=== PATIENT | female | born 1980 | race Caucasian/White ===

== ENCOUNTER → 2016-12-19 | Outpatient (CLI) | payer OTHER ==
[2016-12-19 14:01] LABS: BASO % 0.7 %; BASO ABS # 0.05 K/uL (0-0.2); COMPLETE YES; IG% 0.1 %; LYMPH % 26.9 %; LYMPH ABS # 1.81 K/uL (1.2-3.4); MEAN CELL VOLUME 83.1 fL (80-100); MEAN CORPUSCULAR HEMOGLOBIN 25.9 pg (25-34); MEAN CORPUSCULAR HGB CONC 31.2 g/dl (32-36); MEAN PLATELET VOLUME 11.8 fL (7.4-10.4); MONO % 8.8 %; NEUT % 57.5 %; PLATELET COUNT 288 K/uL (130-400); RED BLOOD COUNT 3.97 M/uL (4.2-5.4); WHITE BLOOD COUNT 6.72 K/uL (4.8-10.8)
[2016-12-19 19:30] LABS: ALT/SGPT 67 U/L (12-78); AMYLASE 69 U/L (25-115); AST/SGOT 67 U/L (15-37); BLOOD UREA NITROGEN 11 mg/dl (7-18); BUN/CREATININE RATIO 15.7 (10-20); CARBON DIOXIDE 28 mmol/L (21-32); CHLORIDE 109 mmol/L (98-107); CREATININE 0.68 mg/dl (0.60-1.20); GLUCOSE 71 mg/dl (70-99); POTASSIUM 4.4 mmol/L (3.5-5.1); SODIUM 141 mmol/L (136-145)
[2016-12-19 19:33] LABS: ALB/GLOB RATIO 1.1 (0.9-2); ALKALINE PHOSPHATASE 275 U/L (45-117)
== END | disposition home or self-care (01) ==
LOC: C.LABSPEC 13:13
PROVIDERS: ATTEND Family Medicine
DX: R10.84 Generalized abdominal pain (principal); R30.0 Dysuria

== ENCOUNTER 2024-02-04 18:00 | Inpatient (IN) ==
[2024-02-04 18:48] LABS: Hematocrit (blood only) 37.9 % (37.0-47.0); Hemoglobin 12.6 g/dl (12.0-16.0); Mean Corpuscular Hemoglobin 34.7 pg (25.0-34.0); Mean Corpuscular Hgb Conc 33.2 g/dL (32.0-36.0); Mean Corpuscular Volume 104.4 fL (80.0-100.0); Mean Platelet Volume 11.1 fL (9.4-12.4); Platelet Count 158 K/uL (130-400); RDW Coefficient of Variation 17.6 % (11.5-14.5); RDW Standard Deviation 68.3 fL (36.4-46.3); Red Blood Count 3.63 M/uL (4.20-5.40); White Blood Count 6.87 K/ul (4.8-10.8)
[2024-02-04 19:04] LABS: Albumin Globulin Ratio 0.8 (0.9-2); Albumin Level 3.3 gm/dl (3.4-5.0); BUN Creatinine Ratio 9.9 (10-20); Bilirubin,Total 6.9 mg/dl (0.2-1.0); Calcium 9.3 mg/dl (8.6-10.3); Creatinine Clr Calc Pharmacy 73.6 ml/min; Est GFR (African American) 103.8 ml/min; Est GFR (Non-African American) 89.6 ml/min; Globulin 4.1 gm/dl (2.5-4.0); Potassium 3.7 mmol/L (3.5-5.1); Total Protein 7.4 gm/dl (6.0-8.3)
[2024-02-04 19:05] LABS: Basophils # (auto) 0.06 K/uL (0.00-0.20); Basophils % (auto) 0.9 %; Eosinophils # (auto) 0.04 K/uL (0.00-0.50); Eosinophils % (auto) 0.6 %; Immature Granulocytes # (auto) 0.02 K/uL (0.01-0.20); Immature Granulocytes % (auto) 0.3 %; Lymphocytes # (auto) 3.55 K/uL (1.20-3.40); Lymphocytes % (auto) 51.7 %; Monocytes % (auto) 7.3 %; Neutrophils % (auto) 39.2 %; Stomatocytes 2+
[2024-02-04 20:06] LABS: Appearance Urine Cloudy (Clear); Bacteria Urine Automated 4+ (None Seen); Bilirubin Urine 3+ (Negative); Blood Urine Negative (Negative); Cast Urine Automated 0-2 /lpf (0-2); Color Urine Dark Yellow; Glucose Urine UA Negative (Negative); Ketones Urine Trace (Negative); Leukocyte Esterase Urine 1+ (Negative); Nitrite Urine Positive (Negative); Protein Urine 1+ (Negative); RBC Urine Automated 0-2 /hpf (0-2); Specific Gravity Urine 1.019 (1.000-1.030); Urobilinogen Urine Positive (Negative)
--- NOTE | 2024-02-04 20:16 | Emergency Department Note ---
Impression & Plan Diffuse abdominal pain, Elevated liver enzymes, UTI (urinary tract infection), History of gastric bypass ED Provider Note NAME: TERRELL MOREAU AGE: 43 SEX: F : 1980 ARRIVES VIA: Walk-In INFORMANT: [Patient] ED PROVIDER(S): [Bobby Red MD] CHIEF COMPLAINT: Abdominal pain HISTORY OF PRESENT ILLNESS: The patient is a 43-year-old female with a history of previous liver issues. She has been diagnosed with primary biliary cholangitis. The patient has had a gastric sleeve as well as a gastric bypass. She has had hernia surgery with mesh. In the last month, she has noticed increasing abdominal distention as well as abdominal pain. She has turned yellow. She has been nauseated and her urine has been dark. Patient was recently at the [facility] for a few days. She was discharged. Today, she saw her doctors office and they were worried about how she appeared and she was sent to our hospital for evaluation. Patient has not had fever, she has not had urinary complaints. There has been no shortness of breath, cough or congestion. PMHx/PSHx/Social Hx: See Below PHYSICAL EXAM: GENERAL: Patient is in no acute distress. HEENT: No acute trauma, normocephalic atraumatic, mucous membranes moist, no nasal congestion. NECK: No stridor, no adenopathy, no meningismus, trachea is midline. LUNGS: Wheezing bilaterally, no respiratory distress, no crackles. HEART: 2/6 systolic murmur, mildly tachycardic, regular rhythm. ABDOMEN: Soft, firm abdomen, mild distention, diffusely tender. EXTREMITIES: No cyanosis, full range of motion of all the joints without pain or difficulty. NEUROLOGIC: Oriented x 3, no acute motor or sensory deficits, no focal weakness. SKIN: Moderate jaundice, no diaphoresis. DIFFERENTIAL DIAGNOSIS: Biliary colic, biliary obstruction, pancreatitis, intra-abdominal bleeding, gastritis, ulcer, anemia, dehydration, among others. EMERGENCY DEPARTMENT PROCEDURES: MEDICAL DECISION MAKING: There is no leukocytosis or concerning anemia. There is a normal platelet count. No coagulopathy. Sodium slightly low but not in need of emergent correction. No renal failure. There were elevated liver enzymes although, looking at her numbers from her recent [place] hospitalization, her liver values appear slightly improved. There is no pancreatitis. Urinalysis did suggest infection, urine culture is pending. Abdominal and pelvis CT showed enlargement to her liver. There is no bowel obstruction, no evidence for intra-abdominal hematoma. On exam, the patient was jaundiced. She was tender about the abdomen. She was not febrile or toxic. Patient received IV saline for hydration, she was given IV Phenergan for nausea, IV Dilaudid for pain, she received IV ceftriaxone for the UTI. The patient presents with worsening abdominal pain since being discharged recently from [facility]. She may be feeling worse because of the UTI. Given her chronic issues, given her liver disease and the jaundice, given the UTI, I do think hospitalization for further care/workup would be warranted. At this point, I do not see any reason for an emergent transfer to a tertiary care center. She does seem appropriate for hospitalization at our facility. Prior/Outside records/notes reviewed: Today's family practice note describing her presentation and the need for referral to our ER. Imaging/x-ray results per my interpretation: Chronic Medical/Social conditions affecting care: History of primary biliary sclerosis and previous drug and alcohol abuse. Care/Management discussed with: Case management, the on-call hospitalist. Level of care consideration(s): After review of the information above and other included data: --I believe the patient requires escalation of care to admission DISPOSITION: . Admission Past Med/Surg History Problem List (Updated 02/04/24 @ 23:43 by Bobby Red MD) History of gastric bypass (Acute) UTI (urinary tract infection) (Acute) Elevated liver enzymes (Acute) Diffuse abdominal pain (Acute) Abdominal pain Thrush Major's edema of vocal folds Rhinitis Tobacco use disorder 5 small cigar cigarettes/day Dysphagia Dysphonia Psychological disorder Bipolar I Acid reflux Autoimmune disorder Asthma Medical History H/O Clostridium difficile infection Nephrolithiasis Borderline personality disorder Stomach ulcer Surgical History History of cholecystectomy 2010 History of sleeve gastrectomy 2014 History of Jeet-en-Y gastric bypass 2016 History of esophagogastroduodenoscopy (EGD) Family History (Updated 12/07/21 @ 16:12 by Janny Cortes PA-C) Mother Cancer Asthma Adverse reaction to anesthetic agent Father Cancer Uncle Cancer Aunt Cancer Sister Asthma Adverse reaction to anesthetic agent Grandmother Cancer Other No family history of bleeding disorder Social History Smoking Status: Current every day smoker Tobacco Type: Cigars Cigarettes Per Day: 5-7; Hx Alcohol Use: Yes Alcohol Intake Frequency Comment: Daily Hx Substance Use: No Preferred Language: Polish Feels Safe at Home: Yes Allergies Allergies Allergy/AdvReac Type Severity Reaction Status Date / Time dichloralphenazone Allergy Severe AIRWAY Verified 02/04/24 20:32 [From Midrin] EDEMA isometheptene [From Midrin] Allergy Severe AIRWAY Verified 02/04/24 20:32 EDEMA Penicillins Allergy Severe AIRWAY Verified 02/04/24 20:32 EDEMA sertraline Allergy Severe AIRWAY Verified 02/04/24 20:32 EDEMA sodium hypochlorite solution Allergy Severe Anaphylaxis Verified 02/04/24 20:32 carbamazepine [From Tegretol] Allergy Mild SWELLING Verified 02/04/24 20:32 ON THE BACK OF HEAD nicotine Allergy Mild Rash Verified 02/04/24 20:32 lurasidone [From Latuda] AdvReac Severe CAUSED JAW Verified 02/04/24 20:32 TO LOCK aspirin AdvReac Intermediate NAUSEA/VOMI Verified 02/04/24 20:32 TING eszopiclone [From Lunesta] AdvReac Intermediate NIGHT Verified 02/04/24 20:32 TERRORS hydrocodone AdvReac Intermediate ABD Verified 02/04/24 20:32 CRAMPS/PAIN, NAUSEA/VOMITING oxycodone AdvReac Intermediate Vomiting Verified 02/04/24 20:32 propoxyphene AdvReac Intermediate Gastrointestinal Verified 02/04/24 20:32 [From Darvocet-N] Upset rofecoxib AdvReac Intermediate GI BLEEDING Verified 02/04/24 20:32 salicylates AdvReac Intermediate IBS/GI Verified 02/04/24 20:32 IRRITATION WITH ASA & VIOXX tetracycline AdvReac Intermediate NAUSEA/VOMI Verified 02/04/24 20:32 TING amoxicillin [From Augmentin] AdvReac Mild Headache Verified 02/04/24 20:32 clavulanic acid AdvReac Mild Headache Verified 02/04/24 20:32 [From Augmentin] HOT PEPPERS Allergy Severe AIRWAY Uncoded 02/04/24 20:32 EDEMA Home Meds Home Medications Medication Instructions Recorded Confirmed albuterol sulfate 90 mcg/actuation 2 puff inhalation Q4H PRN 02/04/24 02/04/24 aerosol inhaler Shortness Of Breath Or Wheezing bupropion HCl 75 mg tablet 75 mg PO DAILY 02/04/24 02/04/24 clonazepam 1 mg tablet 1 mg PO BID PRN PANIC ATTACKS 02/04/24 02/04/24 fluticasone fur. 100 mcg-umeclid 1 inh inhalation DAILY 02/04/24 02/04/24 62.5 mcg-vilant 25 mcg inhalat.powder (Trelegy Ellipta) folic acid 1 mg tablet 1 mg PO DAILY 02/04/24 02/04/24 multivitamin with folic acid 400 1 tab PO QDL 02/04/24 02/04/24 mcg tablet (Daily-Donaldo (with folic acid)) naltrexone 50 mg tablet 50 mg PO QAM 02/04/24 02/04/24 propranolol 10 mg tablet 10 mg PO BID PRN Anxiety 02/04/24 02/04/24 thiamine HCl (vitamin B1) 100 mg 100 mg PO DAILY 02/04/24 02/04/24 tablet (Vitamin B-1) trazodone 100 mg tablet 200 mg PO HS PRN SLEEDP 02/04/24 02/04/24 ursodiol 300 mg capsule See Rx Instructions .Route .COMPLEX 02/04/24 02/04/24 ziprasidone HCl 80 mg capsule 80 mg PO DAILY 02/04/24 02/04/24 Results & Data (ED) Vital Signs Vital Signs - 24 hr 02/04/24 18:10 02/04/24 20:02 02/04/24 20:02 Temperature 36.7 C Temperature Source Temporal Artery Scan Pulse Rate 90 Pulse Rate [Apical] 64 Respiratory Rate 18 18 Blood Pressure 124/87 Blood Pressure [Right Arm] 117/80 Blood Pressure Mean 99 Blood Pressure Mean [Right Arm] 92 Pulse Oximetry 97 99 Oxygen Delivery Method Room Air Room Air Room Air Sepsis Recent Fever Within 48 Hours No Sepsis New/Unexplained Change in Mental Status No Sepsis Action Taken by Nursing No Action Required 02/04/24 20:12 Temperature Temperature Source Pulse Rate 66 Pulse Rate [Apical] Respiratory Rate Blood Pressure Blood Pressure [Right Arm] Blood Pressure Mean Blood Pressure Mean [Right Arm] Pulse Oximetry Oxygen Delivery Method Sepsis Recent Fever Within 48 Hours Sepsis New/Unexplained Change in Mental Status Sepsis Action Taken by Assisted Medications Current Medication List: was personally reviewed by me Laboratory Data Attestation: I reviewed the patient's lab results. 02/04/24 18:31 02/04/24 18:31 Lab Results 02/04/24 02/04/24 Range/Units 18:31 Unknown WBC 6.87 (4.8-10.8) K/ul RBC 3.63 L (4.20-5.40) M/uL Hgb 12.6 (12.0-16.0) g/dl Hct 37.9 (37.0-47.0) % MCV 104.4 H (80.0-100.0) fL MCH 34.7 H (25.0-34.0) pg MCHC 33.2 (32.0-36.0) g/dL RDW Std Deviation 68.3 H (36.4-46.3) fL RDW Coeff of Prasad 17.6 H (11.5-14.5) % Plt Count 158 (130-400) K/uL MPV 11.1 (9.4-12.4) fL Immature Gran % (Auto) 0.3 % Neut % (Auto) 39.2 % Lymph % (Auto) 51.7 % [place] % (Auto) 7.3 % Eos % (Auto) 0.6 % Baso % (Auto) 0.9 % Neut # (Auto) 2.70 (1.40-6.50) K/uL Lymph # (Auto) 3.55 H (1.20-3.40) K/uL [place] # (Auto) 0.50 (0.11-0.59) K/uL Eos # (Auto) 0.04 (0.00-0.50) K/uL Baso # (Auto) 0.06 (0.00-0.20) K/uL Immature Gran # (Auto) 0.02 (0.01-0.20) K/uL Stomatocytes 2+ PT 10.3 (9.0-12.0) Seconds INR 0.9 (0.9-1.1) APTT 26 (21-31) Seconds PTT Ratio 1.0 Sodium 133 L (136-145) mmol/L Potassium 3.7 (3.5-5.1) mmol/L Chloride 102 (98-107) mmol/L Carbon Dioxide 24 (21-32) mmol/L Anion Gap 7 (3-11) BUN 8 (6-23) mg/dl Creatinine 0.81 (0.6-1.2) mg/dl Est Cr Clr Drug Dosing 73.6 ml/min Est GFR ( Amer) 103.8 ml/min Est GFR (Non-Af Amer) 89.6 ml/min BUN/Creatinine Ratio 9.9 L (10-20) Glucose 85 (70-99(Fasting)) mg/dl Calcium 9.3 (8.6-10.3) mg/dl Magnesium 2.1 (1.7-2.4) mg/dl Total Bilirubin 6.9 H (0.2-1.0) mg/dl AST 176 H (13-39) U/L ALT 81 H (7-52) U/L Alkaline Phosphatase 541 H (34-104) U/L Total Protein 7.4 (6.0-8.3) gm/dl Albumin 3.3 L (3.4-5.0) gm/dl Globulin 4.1 H (2.5-4.0) gm/dl Albumin/Globulin Ratio 0.8 L (0.9-2) Lipase 54 (11-82) U/L Urine Color Dark Yellow Urine Appearance Cloudy A (Clear) Urine pH 6.0 (4.5-7.5) Ur Specific [place] 1.019 (1.000-1.030) Urine Protein 1+ H (Negative) Urine Glucose (UA) Negative (Negative) Urine Ketones Trace H (Negative) Urine Blood Negative (Negative) Urine Nitrite Positive A (Negative) Urine Bilirubin 3+ H (Negative) Urine Urobilinogen Positive H (Negative) Ur Leukocyte Esterase 1+ H (Negative) Urine WBC (Auto) 11-20 H (0-5) /hpf Urine RBC (Auto) 0-2 (0-2) /hpf U Hyaline Cast (Auto) 0-2 (0-2) /lpf U Epithel Cells (Auto) 6-10 H (0-2) /hpf Urine Bacteria (Auto) 4+ H (None Seen) Administered Medications Discontinued Medications Hydromorphone HCl (Hydromorphone Inj 0.5 Mg/0.5 Ml Syr) 0.5 mg IV NOW STA Stop: 02/04/24 20:11 Last Admin: 02/04/24 20:34 Dose: 0.5 mg Documented By: GRICELDA Sodium Chloride (Nss) 500 mls @ 999 mls/hr IV .Q31M ONE Stop: 02/04/24 20:40 Last Infusion: 02/04/24 21:03 Dose: Infused Documented By: Admin: 02/04/24 20:29 Dose: 999 mls/hr Documented By: GRICELDA Promethazine HCl (Phenergan) 6.25 mg in 50.25 mls @ 201 mls/hr IV NOW STA Stop: 02/04/24 20:24 Last Infusion: 02/04/24 20:55 Dose: Infused Documented By: Admin: 02/04/24 20:32 Dose: 201 mls/hr Documented By: GRICELDA Ceftriaxone Sodium (Rocephin) 2,000 mg in 50 mls @ 100 mls/hr IV NOW STA Stop: 02/04/24 20:51 Last Infusion: 02/04/24 21:42 Dose: Infused Documented By: Admin: 02/04/24 20:57 Dose: 100 mls/hr Documented By: GRICELDA Ioversol (Optiray 320 100ml) 93 ml IV ONCE ONE Stop: 02/04/24 20:18 Last Admin: 02/04/24 20:19 Dose: 93 ml Documented By: CICI Imaging Data Radiologist's Impression: Abdomen/Pelvis CT 02/04/24 19:46 CT abd pelvis IV con only CLINICAL HISTORY: pain, liver issues, concern for hemorrhage TECHNIQUE: Helical axial images of the abdomen and pelvis were obtained and displayed. Automated dose lowering techniques and/or adjustment according to patient size were utilized for this exam. This exam was performed with intravenous contrast. CT DOSE: 357.06 mGy.cm COMPARISON: None available at the time of this dictation. FINDINGS: Lower chest: No acute abnormality. Liver: Hepatomegaly and hepatic steatosis is seen. Gallbladder and biliary tree: Patient is status post cholecystectomy. No intra- or extrahepatic biliary ductal dilation. Pancreas: Unremarkable, no focal lesions. Spleen: Unremarkable. Adrenals: Unremarkable. Kidneys and ureters: Unremarkable. Bladder: Limited evaluation due to underdistention. Reproductive organs: Unremarkable. Bowel: Postsurgical changes of gastric sleeve are noted. A hiatal hernia is seen. Diverticulosis is seen without diverticulitis. Lymph nodes Retroperitoneal: Unremarkable. Pelvic: Unremarkable. Mesenteric: Unremarkable. Peritoneum: Normal. Vessels: Unremarkable. Abdominal wall: Unremarkable. Bones: Unremarkable. IMPRESSION: 1. Prominent hepatic steatosis and hepatomegaly are seen. Steatohepatitis cannot be excluded. 2. No evidence of intraperitoneal hemorrhage or other acute abnormality. 3. Postsurgical changes of gastric sleeve. ACT 112: Negative or not required by law. Electronically signed by: Kayode Rosa M.D. 02/04/2024 9:07 PM Discharge Plan Visit Data Chief Complaint: Abdominal Pain Stated Complaint: ABDOMINAL PAIN, LIVER DISEASE ED Provider: Bobby Red Discharge Problem: Diffuse abdominal pain, Elevated liver enzymes, UTI (urinary tract infection), History of gastric bypass Patient Disposition: Admitted As Inpatient Condition: Fair Prescriptions Prescriptions: No Action ziprasidone HCl 80 mg capsule 80 mg PO DAILY Rx Instructions: PER PT "NOT TAKING". naltrexone 50 mg tablet 50 mg PO QAM Rx Instructions: ORDERED 01/31/24 FOR 13 DAYS, PER PT "NOT TAKING". clonazepam 1 mg tablet 1 mg PO BID PRN (Reason: PANIC ATTACKS) thiamine HCl (vitamin B1) [Vitamin B-1] 100 mg Tablet 100 mg PO DAILY propranolol 10 mg tablet 10 mg PO BID PRN (Reason: Anxiety) trazodone 100 mg Tablet 200 mg PO HS PRN (Reason: SLEEDP) ursodiol 300 mg capsule See Rx Instructions .ROUTE .COMPLEX Rx Instructions: TAKE 600 MG QAM, THEN 300 MG QPM. PER PT "NOT TAKING". bupropion HCl 75 mg tablet 75 mg PO DAILY Rx Instructions: PER PT "NOT TAKING". folic acid 1 mg Tablet 1 mg PO DAILY albuterol sulfate 90 mcg/actuation HFA aerosol inhaler 2 puff INHALATION Q4H PRN (Reason: Shortness Of Breath Or Wheezing) multivitamin with folic acid [Daily-Donaldo (with folic acid)] 400 mcg tablet 1 tab PO QDL Trelegy Ellipta 100-62.5-25 mcg blister with device 1 inh INHALATION DAILY Discharge Problem: UTI (urinary tract infection) Qualifiers: Urinary tract infection type: acute cystitis Hematuria presence: without hematuria Qualified Code(s): N30.00 - Acute cystitis without hematuria
[2024-02-04] MEDS: OPTIRAY 320 100ml IV ONE (20:19)
[2024-02-04] MEDS: SODIUM CHLORIDE 0.9% 500 ML IV ONE (20:29)
[2024-02-04] MEDS: PROMETHAZINE 6.25 MG/50.25 ML BAG IV STA (20:32)
[2024-02-04] MEDS: HYDROmorphone INJ 0.5 MG/0.5 ML SYR IV STA (20:34)
[2024-02-04 20:35] LABS: Magnesium 2.1 mg/dl (1.7-2.4)
[2024-02-04] MEDS: cefTRIAXone SODIUM 2,000 MG/50 ML BAG IV STA (20:57)
[2024-02-04 21:02] LABS: INR 0.9 (0.9-1.1); Partial Thromboplastin Time 26 Seconds (21-31); Prothrombin Time 10.3 Seconds (9.0-12.0)
--- NOTE | 2024-02-04 21:09 | CT Scan Report ---
CT abd pelvis IV con only CLINICAL HISTORY: pain, liver issues, concern for hemorrhage TECHNIQUE: Helical axial images of the abdomen and pelvis were obtained and displayed. Automated dose lowering techniques and/or adjustment according to patient size were utilized for this exam. This e xam was performed with intravenous contrast. CT DOSE: 357.06 mGy.cm COMPARISON: None available at the time of this dictation. FINDINGS: Lower chest: No acute abnormality. Liver: Hepatomegaly and hepatic steatosis is seen. Gallbladder and biliary tree: Patient is status post cholecystectomy. No intra- or extrahepatic bilia ry ductal dilation. Pancreas: Unremarkable, no focal lesions. Spleen: Unremarkable. Adrenals: Unremarkable. Kidneys and ureters: Unremarkable. Bladder: Limited evaluation due to underdistention. Reproductive organs: Unremarkable. Bowel: Postsurgical changes of gastric sleeve are noted. A hiatal hernia is seen. Diverticulosis is s een without diverticulitis. Lymph nodes Retroperitoneal: Unremarkable. Pelvic: Unremarkable. Mesenteric: Unremarkable. Peritoneum: Normal. Vessels: Unremarkable. Abdominal wall: Unremarkable. Bones: Unremarkable. IMPRESSION: 1. Prominent hepatic steatosis and hepatomegaly are seen. Steatohepatitis cannot be excluded. 2. No evidence of intraperitoneal hemorrhage or other acute abnormality. 3. Postsurgical changes of gastric sleeve. ACT 112: Negative or not required by law. Electronically signed by: Kayode Rosa M.D. 02/04/2024 9:07 PM
--- NOTE | 2024-02-04 23:16 | History & Physical Report ---
Date of Service February 04, 2024 Assessment & Plan (1) Abdominal pain: Plan: 43-year-old female with past medical history significant for depression, bipolar, ADHD, PTSD, s/p laparoscopic sleeve and gastric bypass, history of primary biliary sclerosis,prior history of cocaine and marijuana abuse but patient declines, ongoing tobacco abuse, alcohol abuse comes because of abdominal pain. Patient recently admitted to the [facility] from january 27 to for abdominal pain and 'found to have elevated LFTs with AST at 456, ALT 208, alkaline phos 731 and total bilirubin 7.5 and direct bili 5.[address] scan showed extensive diffuse fatty infiltration which seemed new ,no biliary ductal dilatation seen . Suspicious for alcohol hepatitis but DF score was 7.5 so no prednisone was given. GI recommended to restart Ursodiol 300milligrams twice daily and to follow-up with hepatology clinic and strict alcohol cessation.Patient declined inpatient alcohol rehab patient was started on naltrexone 50 mg p.o. daily and advised to follow-up with addiction medicine and was discharged home'. Patient states after going home still has a lot of abdominal pain. She went to the follow-up appointment to PCP today and because of ongoing abdominal pain was advised to come to the ER again today. Patient states has some loose stools. Denies any blood in the stools. Micturating a lot. Denies any fevers. States she is always short of breath. She still smokes half pack a day. And has cough with yellowish phlegm. She thinks she has a bronchitis and some chest discomfort from that. Has nausea. Appetite is down. No headache. Vision is blurry. Has some sore throat. Currently hemodynamics are okay. Patient states she has not drank alcohol since she was admitted in [facility] on January 27. She states she can stop alcohol for few days without going through withdrawals. Abdominal pain ongoing worried about the mesh in the abdomen CT abdomen pelvis is okay pain control Will consult surgery further recommendations elevated LFTs slightly better than the [facility] history of primary biliary sclerosis elevated LFTs thought to be from alcoholism currently seems not taking ursodiol Will follow repeat labs in a.m. GI consult tobacco abuse has cough rhonchi on exam probable acute bronchitis continue home inhalers nebs p.o. doxycycline acute UTI could be contributing to her symptoms Azactam as allergic to penicillin will follow cultures alcoholism States didnot drink alcohol for a week now continue home vitamin supplements monitor for withdrawal patient was started on naltrexone at discharge from [facility] , seems not taking depression bipolar ADHD PTSD continue home medications DVT prophylaxis heparin subcu disposition med/telemetry full code History of Present Illness Chief Complaint: abdominal pain Primary Care Provider: Katerine Lux MD 43-year-old female with past medical history significant for depression, bipolar, ADHD, PTSD, s/p laparoscopic sleeve and gastric bypass, history of primary biliary sclerosis,prior history of cocaine and marijuana abuse but patient declines, ongoing tobacco abuse, alcohol abuse comes because of abdominal pain. Patient recently admitted to the [facility] from january 27 to for abdominal pain and 'found to have elevated LFTs with AST at 456, ALT 208, alkaline phos 731 and total bilirubin 7.5 and direct bili 5.[address] scan showed extensive diffuse fatty infiltration which seemed new ,no biliary ductal dilatation seen . Suspicious for alcohol hepatitis but DF score was 7.5 so no prednisone was given. GI recommended to restart Ursodiol 300milligrams twice daily and to follow-up with hepatology clinic and strict alcohol cessation.Patient declined inpatient alcohol rehab patient was started on naltrexone 50 mg p.o. daily and advised to follow-up with addiction medicine and was discharged home'. Patient states after going home still has a lot of abdominal pain. She went to the follow-up appointment to PCP today and because of ongoing abdominal pain was advised to come to the ER again today. Patient states has some loose stools. Denies any blood in the stools. Micturating a lot. Denies any fevers. States she is always short of breath. She still smokes half pack a day. And has cough with yellowish phlegm. She thinks she has a bronchitis and some chest discomfort from that. Has nausea. Appetite is down. No headache. Vision is blurry. Has some sore throat. Currently hemodynamics are okay. Patient states she has not drank alcohol since she was admitted in [facility] on January 27. She states she can stop alcohol for few days without going through withdrawals. 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 Carpal tunnel surgery bilateral. Colonoscopy. EGD. EGD with endoscopic ultrasound. EGD with biopsy. Laparoscopic procedure liver. Laparoscopic gastric restrictive bypass Jeet-en-Y. Cholecystectomy. Postop hernia repair with mesh. Tonsillectomy And arytenoidectomy.. Laparoscopic sleeve gastrectomy. Social history. Smokes 1 pack a day for 20 years. Alcohol 6 pack a day. Drugs medical marijuana. States she used cocaine only once during period of suicidal ideation. Family history. Mother had cancer. ADHD. Mental illness. Fibromyalgia. Father has diabetes. Esophageal cancer. Hypertension. Stomach cancer. Sister has asthma. Maternal grandfather had stomach cancer. Maternal grandmother had breast cancer. Sister has melanoma. Paternal grandmother had stomach cancer. Uncle had esophageal cancer. Allergies Allergy/AdvReac Type Severity Reaction Status Date / Time cayenne pepper fruits Allergy Severe "hot Verified 02/05/24 00:09 peppers" airway edema dichloralphenazone Allergy Severe AIRWAY Verified 02/04/24 20:32 [From Midrin] EDEMA isometheptene [From Midrin] Allergy Severe AIRWAY Verified 02/04/24 20:32 EDEMA Penicillins Allergy Severe AIRWAY Verified 02/04/24 20:32 EDEMA sertraline Allergy Severe AIRWAY Verified 02/04/24 20:32 EDEMA sodium hypochlorite solution Allergy Severe Anaphylaxis Verified 02/04/24 20:32 carbamazepine [From Tegretol] Allergy Mild SWELLING Verified 02/04/24 20:32 ON THE BACK OF HEAD nicotine Allergy Mild Rash Verified 02/04/24 20:32 lurasidone [From Latuda] AdvReac Severe CAUSED JAW Verified 02/04/24 20:32 TO LOCK aspirin AdvReac Intermediate NAUSEA/VOMI Verified 02/04/24 20:32 TING eszopiclone [From Lunesta] AdvReac Intermediate NIGHT Verified 02/04/24 20:32 TERRORS hydrocodone AdvReac Intermediate ABD Verified 02/04/24 20:32 CRAMPS/PAIN, NAUSEA/VOMITING oxycodone AdvReac Intermediate Vomiting Verified 02/04/24 20:32 propoxyphene AdvReac Intermediate Gastrointestinal Verified 02/04/24 20:32 [From Priyankacet-N] Upset rofecoxib AdvReac Intermediate GI BLEEDING Verified 02/04/24 20:32 salicylates AdvReac Intermediate IBS/GI Verified 02/04/24 20:32 IRRITATION WITH ASA & VIOXX tetracycline AdvReac Intermediate NAUSEA/VOMI Verified 02/04/24 20:32 TING amoxicillin [From Augmentin] AdvReac Mild Headache Verified 02/04/24 20:32 clavulanic acid AdvReac Mild Headache Verified 02/04/24 20:32 [From Augmentin] Home Medications Medication Instructions Recorded Confirmed Type albuterol sulfate 90 mcg/actuation 2 puff inhalation Q4H PRN 02/04/24 02/04/24 History aerosol inhaler Shortness Of Breath Or Wheezing bupropion HCl 75 mg tablet 75 mg PO DAILY 02/04/24 02/04/24 History clonazepam 1 mg tablet 1 mg PO BID PRN PANIC ATTACKS 02/04/24 02/04/24 History fluticasone fur. 100 mcg-umeclid 1 inh inhalation DAILY 02/04/24 02/04/24 History 62.5 mcg-vilant 25 mcg inhalat.powder (Trelegy Ellipta) folic acid 1 mg tablet 1 mg PO DAILY 02/04/24 02/04/24 History multivitamin with folic acid 400 1 tab PO QDL 02/04/24 02/04/24 History mcg tablet (Daily-Donaldo (with folic acid)) naltrexone 50 mg tablet 50 mg PO QAM 02/04/24 02/04/24 History propranolol 10 mg tablet 10 mg PO BID PRN Anxiety 02/04/24 02/04/24 History thiamine HCl (vitamin B1) 100 mg 100 mg PO DAILY 02/04/24 02/04/24 History tablet (Vitamin B-1) trazodone 100 mg tablet 200 mg PO HS PRN SLEEDP 02/04/24 02/04/24 History ursodiol 300 mg capsule See Rx Instructions .Route .COMPLEX 02/04/24 02/04/24 History ziprasidone HCl 80 mg capsule 80 mg PO DAILY 02/04/24 02/04/24 History Past Med/Surg History Problem List (Updated 02/04/24 @ 23:43 by Bobby Red MD) History of gastric bypass (Acute) UTI (urinary tract infection) (Acute) Elevated liver enzymes (Acute) Diffuse abdominal pain (Acute) Abdominal pain Thrush Major's edema of vocal folds Rhinitis Tobacco use disorder 5 small cigar cigarettes/day Dysphagia Dysphonia Psychological disorder Bipolar I Acid reflux Autoimmune disorder Asthma Medical History H/O Clostridium difficile infection Nephrolithiasis Borderline personality disorder Stomach ulcer Surgical History History of cholecystectomy 2010 History of sleeve gastrectomy 2015 History of Jeet-en-Y gastric bypass 2016 History of esophagogastroduodenoscopy (EGD) Family History (Updated 12/07/21 @ 16:12 by Janny Cortes PA-C) Mother Cancer Asthma Adverse reaction to anesthetic agent Father Cancer Uncle Cancer Aunt Cancer Sister Asthma Adverse reaction to anesthetic agent Grandmother Cancer Other No family history of bleeding disorder Social History Smoking Status: Current every day smoker Tobacco Type: Cigars Cigarettes Per Day: 5-7; Hx Alcohol Use: Yes Alcohol type: beer Alcohol Intake Frequency Comment: Daily Hx Substance Use: No Preferred Language: Japanese Communication Ability: Effective 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 Review of Systems Review of Systems: All systems reviewed & are unremarkable except as noted in HPI & below Physical Exam Physical Exam: General- Not in distress Head- atraumatic Eyes- PERRL.Icterus present ENT- oropharynx clear Neck- supple, no JVD. Lungs- clear to auscultation mild b/l rhonchi heard, or crackles. Heart- regular rate and rhythm; no murmur, no gallop. Abdomen- normal bowel sounds, soft, diffuse tender mild guarding present. No distension. Extremities- no pretibial edema, no erythema seen. Neuro- alert, oriented PERRL, EOMI; no facial palsy; no dysarthria; moves extr emities. Results & Data Results & Data Vital Signs (Past 12 Hours) Vital Signs Temp Pulse Pulse Resp BP BP Pulse Ox 02/04/24 20:12 66 02/04/24 20:02 02/04/24 20:02 64 18 117/80 99 02/04/24 18:10 36.7 C 90 18 124/87 97 O2 Del Method 02/04/24 20:12 02/04/24 20:02 Room Air 02/04/24 20:02 Room Air 02/04/24 18:10 Room Air Diagnostic Findings Laboratory Results WBC 6.87 K/ul (4.8-10.8) 02/04/24 18: RBC 3.63 M/uL (4.20-5.40) L 02/04/24 18:31 Hgb 12.6 g/dl (12.0-16.0) 02/04/24 18:31 Hct 37.9 % (37.0-47.0) 02/04/24 18:31 MCV 104.4 fL (80.0-100.0) H 02/04/24 18:31 MCH 34.7 pg (25.0-34.0) H 02/04/24 18: MCHC 33.2 g/dL (32.0-36.0) 02/04/24 18: RDW Std Deviation 68.3 fL (36.4-46.3) H 02/04/24 18: RDW Coeff of Prasad 17.6 % (11.5-14.5) H 02/04/24 18: Plt Count 158 K/uL (130-400) 02/04/24 18: MPV 11.1 fL (9.4-12.4) 02/04/24 18: Immature Gran % (Auto) 0.3 % 02/04/24 18: Neut % (Auto) 39.2 % 02/04/24 18: Lymph % (Auto) 51.7 % 02/04/24 18: [place] % (Auto) 7.3 % 02/04/24 18: Eos % (Auto) 0.6 % 02/04/24 18:31 Baso % (Auto) 0.9 % 02/04/24 18:31 Neut # (Auto) 2.70 K/uL (1.40-6.50) 02/04/24 18: Lymph # (Auto) 3.55 K/uL (1.20-3.40) H 02/04/24 18:31 [place] # (Auto) 0.50 K/uL (0.11-0.59) 02/04/24 18: Eos # (Auto) 0.04 K/uL (0.00-0.50) 02/04/24 18:31 Baso # (Auto) 0.06 K/uL (0.00-0.20) 02/04/24 18:31 Immature Gran # (Auto) 0.02 K/uL (0.01-0.20) 02/04/24 18:31 Stomatocytes 2+ 02/04/24 18:31 PT 10.3 Seconds (9.0-12.0) 02/04/24 18:31 INR 0.9 (0.9-1.1) 02/04/24 18:31 APTT 26 Seconds (21-31) 02/04/24 18:31 PTT Ratio 1.0 02/04/24 18:31 Sodium 133 mmol/L (136-145) L 02/04/24 18:31 Potassium 3.7 mmol/L (3.5-5.1) 02/04/24 18:31 Chloride 102 mmol/L (98-107) 02/04/24 18:31 Carbon Dioxide 24 mmol/L (21-32) 02/04/24 18:31 Anion Gap 7 (3-11) 02/04/24 18:31 BUN 8 mg/dl (6-23) 02/04/24 18:31 Creatinine 0.81 mg/dl (0.6-1.2) 02/04/24 18:31 Est Cr Clr Drug Dosing 73.6 ml/min 02/04/24 18:31 Est GFR ( Amer) 103.8 ml/min 02/04/24 18:31 Est GFR (Non-Af Amer) 89.6 ml/min 02/04/24 18:31 BUN/Creatinine Ratio 9.9 (10-20) L 02/04/24 18:31 Glucose 85 mg/dl (70-99(Fasting)) 02/04/24 18:31 Calcium 9.3 mg/dl (8.6-10.3) 02/04/24 18: Magnesium 2.1 mg/dl (1.7-2.4) 02/04/24 18:31 Total Bilirubin 6.9 mg/dl (0.2-1.0) H 02/04/24 18:31 AST 176 U/L (13-39) H 02/04/24 18:31 ALT 81 U/L (7-52) H 02/04/24 18:31 Alkaline Phosphatase 541 U/L (34-104) H 02/04/24 18:31 Total Protein 7.4 gm/dl (6.0-8.3) 02/04/24 18:31 Albumin 3.3 gm/dl (3.4-5.0) L 02/04/24 18:31 Globulin 4.1 gm/dl (2.5-4.0) H 02/04/24 18:31 Albumin/Globulin Ratio 0.8 (0.9-2) L 02/04/24 18:31 Lipase 54 U/L (11-82) 02/04/24 18:31 Urine Color Dark Yellow 02/04/24 Unknown Urine Appearance Cloudy (Clear) A 02/04/24 Unknown Urine pH 6.0 (4.5-7.5) 02/04/24 Unknown Ur Specific [place] 1.019 (1.000-1.030) 02/04/24 Unknown Urine Protein 1+ (Negative) H 02/04/24 Unknown Urine Glucose (UA) Negative (Negative) 02/04/24 Unknown Urine Ketones Trace (Negative) H 02/04/24 Unknown Urine Blood Negative (Negative) 02/04/24 Unknown Urine Nitrite Positive (Negative) A 02/04/24 Unknown Urine Bilirubin 3+ (Negative) H 02/04/24 Unknown Urine Urobilinogen Positive (Negative) H 02/04/24 Unknown Ur Leukocyte Esterase 1+ (Negative) H 02/04/24 Unknown Urine WBC (Auto) 11-20 /hpf (0-5) H 02/04/24 Unknown Urine RBC (Auto) 0-2 /hpf (0-2) 02/04/24 Unknown U Hyaline Cast (Auto) 0-2 /lpf (0-2) 02/04/24 Unknown U Epithel Cells (Auto) 6-10 /hpf (0-2) H 02/04/24 Unknown Urine Bacteria (Auto) 4+ (None Seen) H 02/04/24 Unknown Impressions Abdomen/Pelvis CT 02/04/24 19:46 CT abd pelvis IV con only CLINICAL HISTORY: pain, liver issues, concern for hemorrhage TECHNIQUE: Helical axial images of the abdomen and pelvis were obtained and displayed. Automated dose lowering techniques and/or adjustment according to patient size were utilized for this exam. This exam was performed with intravenous contrast. CT DOSE: 357.06 mGy.cm COMPARISON: None available at the time of this dictation. FINDINGS: Lower chest: No acute abnormality. Liver: Hepatomegaly and hepatic steatosis is seen. Gallbladder and biliary tree: Patient is status post cholecystectomy. No intra- or extrahepatic biliary ductal dilation. Pancreas: Unremarkable, no focal lesions. Spleen: Unremarkable. Adrenals: Unremarkable. Kidneys and ureters: Unremarkable. Bladder: Limited evaluation due to underdistention. Reproductive organs: Unremarkable. Bowel: Postsurgical changes of gastric sleeve are noted. A hiatal hernia is seen. Diverticulosis is seen without diverticulitis. Lymph nodes Retroperitoneal: Unremarkable. Pelvic: Unremarkable. Mesenteric: Unremarkable. Peritoneum: Normal. Vessels: Unremarkable. Abdominal wall: Unremarkable. Bones: Unremarkable. IMPRESSION: 1. Prominent hepatic steatosis and hepatomegaly are seen. Steatohepatitis cannot be excluded. 2. No evidence of intraperitoneal hemorrhage or other acute abnormality. 3. Postsurgical changes of gastric sleeve. ACT 112: Negative or not required by law. Electronically signed by: Kayode Rosa M.D. 02/04/2024 9:07 PM Code Status & VTE Plan VTE Prophylaxis Plan VTE Prophylaxis will be ordered: Yes
[2024-02-04] MEDS: HYDROmorphone INJ 0.5 MG/0.5 ML SYR IV PRN (23:39)
--- NOTE | 2024-02-04 23:43 | Surgery Consultation ---
Date of Consultation February 04, 2024 Assessment & Plan (1) Abdominal pain: The patient has been admitted on the hospital service. From surgery perspective we recommend the following: The patient is noted to have elevated LFTs and I suspect that this is likely due to her underlying hepatic issues and may be the cause of her abdominal pain. In addition, upon review of the patient's chart she does have a history of gastric ulcers documented by EGD in the past. It is unclear if the patient ever had follow-up EGD to document healing of her ulcers so this may also be a potential cause of her underlying abdominal pain. At the present time the patient does not have any mesh protruding through her skin and therefore I do not feel any acute surgical intervention is required, and if any manipulation or removal of this mesh would be undertaken it be best to have patient's underlying hepatic issues optimized It does appear that the patient has an underlying urinary tract infection would recommend initiating antibiotics for this problem but will defer this to the primary service The hospital service is also requested a gastroenterology consultation due to the patient's underlying LFTs; will await recommendations from the service At the time of my interview the patient was not noted to have an acute abdomen, and again I therefore do not feel any acute surgical invention is required at this time. Supervising Physician Co-Signing Physician Notes I personally saw and evaluated the patient with Zachery Marino PA-C and agree with the assessment and plan. 43 yo female with abdominal pain Her CT images and results were personally viewed and interpreted by myself She has no abnormalities on CT scan There are no indications to remove her mesh Surgery will sign off at this time History of Present Illness Reason for Consultation: Abdominal pain, history of hernia surgery with mesh History of Present Illness This is a 43-year-old female who presented to [facility] secondary to abdominal pain. The patient notes that she has had ongoing abdominal pain for several weeks. She notes that the pain is located in her upper abdomen. She does not report any radiation of the pain. She notes that the pain is alleviated with administration of Dilaudid and she does not note any other modifying factors. The patient notes that she was recently admitted to [facility] for several days but she is unclear of any of the details regarding this admission. The patient does report that she has had a history of a gastric sleeve as well as a gastric bypass. She says she also has suffered from a ventral hernia and she has had mesh placed in her abdominal wall. The patient notes that this was performed she believes somewhere in [place], [place], and was done approximately 20 years ago. The patient notes related to her abdominal pain she was told that her mesh has become "loose" and believes that the mesh protrudes through her skin at times. She feels that this may be related to her pain. I did question her and her other abdominal symptomatology and she notes that she does have loose bowel movements from time to time. She notes that she is able to eat solid food without any dysphagia. With her current symptomatology she does not have any fevers, shakes, or chills. The patient does admit to history of underlying liver disease that she has told me was related to history of alcohol use. Since arrival to the hospital the patient has had labs and imaging which I independently reviewed. A CT scan of the abdomen and pelvis showed prominent hepatic steatosis and hepatomegaly with the inability to exclude steatohepatitis. There is no evidence of any intraperitoneal hemorrhage or other acute abnormalities. The patient was noted to have postsurgical changes of a gastric sleeve. A hiatal hernia was noted. The interpreting radiologist s pecifically noted that the abdominal wall was unremarkable. Labs include a CBC her white blood cell count, hemoglobin, hematocrit, and platelet count were all normal. Coagulation studies were within the normal range. Chemistry profile showed sodium was 133 with a normal potassium as well as a normal BUN and creatinine. Patient had markedly elevated LFTs with a total bilirubin of 6.9, AST 176, ALT 81, and alkaline phosphatase of 541. Her lipase was nonelevated. Urinalysis showed 1+ leukocyte Estrace and 11-20 white blood cells per high- power field and 4+ bacteria. The specimen was also positive for nitrites. At the time of my interview she was resting comfortably in bed and she was in no distress. Allergies Allergy/AdvReac Type Severity Reaction Status Date / Time cayenne pepper fruits Allergy Severe "hot Verified 02/05/24 00:09 peppers" airway edema dichloralphenazone Allergy Severe AIRWAY Verified 02/04/24 20:32 [From Midrin] EDEMA isometheptene [From Midrin] Allergy Severe AIRWAY Verified 02/04/24 20:32 EDEMA Penicillins Allergy Severe AIRWAY Verified 02/04/24 20:32 EDEMA sertraline Allergy Severe AIRWAY Verified 02/04/24 20:32 EDEMA sodium hypochlorite solution Allergy Severe Anaphylaxis Verified 02/04/24 20:32 carbamazepine [From Tegretol] Allergy Mild SWELLING Verified 02/04/24 20:32 ON THE BACK OF HEAD nicotine Allergy Mild Rash Verified 02/04/24 20:32 lurasidone [From Latuda] AdvReac Severe CAUSED JAW Verified 02/04/24 20:32 TO LOCK aspirin AdvReac Intermediate NAUSEA/VOMI Verified 02/04/24 20:32 TING eszopiclone [From Lunesta] AdvReac Intermediate NIGHT Verified 02/04/24 20:32 TERRORS hydrocodone AdvReac Intermediate ABD Verified 02/04/24 20:32 CRAMPS/PAIN, NAUSEA/VOMITING oxycodone AdvReac Intermediate Vomiting Verified 02/04/24 20:32 propoxyphene AdvReac Intermediate Gastrointestinal Verified 02/04/24 20:32 [From Darvocet-N] Upset rofecoxib AdvReac Intermediate GI BLEEDING Verified 02/04/24 20:32 salicylates AdvReac Intermediate IBS/GI Verified 02/04/24 20:32 IRRITATION WITH ASA & VIOXX tetracycline AdvReac Intermediate NAUSEA/VOMI Verified 02/04/24 20:32 TING amoxicillin [From Augmentin] AdvReac Mild Headache Verified 02/04/24 20:32 clavulanic acid AdvReac Mild Headache Verified 02/04/24 20:32 [From Augmentin] Home Medications Medication Instructions Recorded Confirmed Type albuterol sulfate 90 mcg/actuation 2 puff inhalation Q4H PRN 02/04/24 02/04/24 History aerosol inhaler Shortness Of Breath Or Wheezing bupropion HCl 75 mg tablet 75 mg PO DAILY 02/04/24 02/04/24 History clonazepam 1 mg tablet 1 mg PO BID PRN PANIC ATTACKS 02/04/24 02/04/24 History fluticasone fur. 100 mcg-umeclid 1 inh inhalation DAILY 02/04/24 02/04/24 History 62.5 mcg-vilant 25 mcg inhalat.powder (Trelegy Ellipta) folic acid 1 mg tablet 1 mg PO DAILY 02/04/24 02/04/24 History multivitamin with folic acid 400 1 tab PO QDL 02/04/24 02/04/24 History mcg tablet (Daily-Donaldo (with folic acid)) naltrexone 50 mg tablet 50 mg PO QAM 02/04/24 02/04/24 History propranolol 10 mg tablet 10 mg PO BID PRN Anxiety 02/04/24 02/04/24 History thiamine HCl (vitamin B1) 100 mg 100 mg PO DAILY 02/04/24 02/04/24 History tablet (Vitamin B-1) trazodone 100 mg tablet 200 mg PO HS PRN SLEEDP 02/04/24 02/04/24 History ursodiol 300 mg capsule See Rx Instructions .Route .COMPLEX 02/04/24 02/04/24 History ziprasidone HCl 80 mg capsule 80 mg PO DAILY 02/04/24 02/04/24 History Patient History Medical History H/O Clostridium difficile infection Nephrolithiasis Borderline personality disorder Stomach ulcer Surgical History History of cholecystectomy 2010 History of sleeve gastrectomy 2014 History of Jeet-en-Y gastric bypass 2016 History of esophagogastroduodenoscopy (EGD) Family History (Updated 12/07/21 @ 16:12 by Janny Cortes PA-C) Mother Cancer Asthma Adverse reaction to anesthetic agent Father Cancer Uncle Cancer Aunt Cancer Sister Asthma Adverse reaction to anesthetic agent Grandmother Cancer Other No family history of bleeding disorder Social History Smoking Status: Current every day smoker Tobacco Type: Cigars Cigarettes Per Day: 5-7; Hx Alcohol Use: Yes Alcohol type: beer Alcohol Intake Frequency Comment: Daily Hx Substance Use: No Preferred Language: Mexican Communication Ability: Effective Hot Bread Baker Required: No Beliefs That Will Affect Care: None Current Living Situation: Significant Other Current Living Situation Comment: [facility] Feels Safe at Home: Yes Assistive Devices: Denture - Upper and Denture - Lower Assistive Devices Comment: has dentures but doesn't use them. Review of Systems Review of Systems: All systems reviewed & are unremarkable except as noted in HPI & below Physical Exam Constitutional: no acute distress ENMT: Ears: no hearing impairment and no external ear abnormality Mucous membranes are moist Neck: trachea midline Respiratory: normal respiratory effort; no respiratory distress and no labored breathing Cardiovascular: Rate/Rhythm: regular rate and regular rhythm Gastrointestinal (Abdomen): Abdomen is soft and nondistended. Her abdomen is nonrigid. She does have noted diffuse tenderness throughout abdomen but this appears to be greatest in the upper abdomen. There are no open areas of her skin. There is no mesh protruding through the skin. Musculoskeletal: No calf tenderness Skin: no jaundice Neurologic: moves all extremities Psychiatric: A+Ox3, euthymic affect Results & Data Vital Signs (Past 12 Hours) Vital Signs Temp Pulse Pulse Resp BP BP Pulse Ox 02/04/24 20:12 66 02/04/24 20:02 02/04/24 20:02 64 18 117/80 99 02/04/24 18:10 36.7 C 90 18 124/87 97 O2 Del Method 02/04/24 20:12 02/04/24 20:02 Room Air 02/04/24 20:02 Room Air 02/04/24 18:10 Room Air PG Care Time/CCT Total # of Minutes Spent Total Time Spent with Patient: Total time spent is greater than 50% in coordination of care (as documented) at patient's floor/unit and/or counseling patient: Coding Level of Care Code 93959 IN/OBS CONSULT LVL 5,80M Diagnoses Abdominal pain R10.9
[2024-02-04] MEDS ORDERED: ALBUTEROL HFA 8 GM INHALER INH PRN (23:44)
[2024-02-04] MEDS ORDERED: traZODone HCL 100 MG TAB PO PRN (23:44)
[2024-02-04] MEDS ORDERED: ONDANSETRON INJ 2 MG/ML 2 ML VIAL IV PRN (23:44)
[2024-02-05] MEDS: AZTREONAM 2,000 MG in DEXTROSE 5% MINI-B 100 ML IV SCH (00:25)
[2024-02-05] MEDS: SODIUM CHLORIDE 0.9% 1,000 ML IV SCH (00:25)
[2024-02-05] MEDS: HYDROmorphone INJ 0.5 MG/0.5 ML SYR IV PRN (04:09)
--- OUTSIDE RECORDS SUMMARY | 2024-02-05 06:47 | External Medical Summary | Summary of Care ---
Author Name Unknown Organization [facility] Address [address] [place] [address] Phone [phone] Care Team Providers Care Steward/Stewardess Tourist Class Name Role Phone Unavailable Primary Care Provider Unavailabl e Encounter Details Date Type Department Care Team ([facility] st Contact Info) Description 02/02/2024 Orders Only PATIENT PORTAL DO NOT DELETE THIS DEPT USED BY CARLY BERG [id number] Allergies Active Allergy Reactions Criticality Noted Date Comments Amoxicillin-Pot Clavulanate Other (Please comment) Low 12/28/2013 Headache Aspirin Nausea/vomiting 03/23/2009 Food (See Comments) Edema airway High 01/01/2018 Patient reports she is allergic to various types of hot peppers. Lurasidone Medium 10/02/2022 Caused lock jaw Eszopiclone 10/02/2022 Caused night terrors Midrin Edema airway High 11/19/2006 Throat swells Nicotine Rash Medium 12/28/2013 Penicillins Edema airway High 11/19/2006 Throat swells Percocet 11/19/2006 GI upset, vomiting Pp-Cap (Propoxyphene) 05/14/2010 darvocet Rofecoxib 05/13/2019 Other reaction(s): abd bleeding Salicylates 11/19/2006 IBS, GI irritation, Vioxx, aspirin Sertraline Hcl Edema airway High 05/14/2010 Zoloft- throat swells Sodium Hypochlorite Anaphylaxis High 01/07/2018 Pt highly allergic to bleach products! Carbamazepine Edema Other 10/03/2009 Swelling on the back side of her head Tetracycline Base Nausea/vomiting 06/29/2010 Hydrocodone-Acetaminoph en Nausea/vomiting,Other (Please comment) Medium 12/28/2013 Cramps/abdominal pain documented as of this encounter (statuses as of 02/02/2024) Medications Medication Sig Dispensed Refills Start Date End Date Status albuterol (PROVENTIL HFA) 108 (90 BASE) MCG/ACT inhaler Inhale 2 Puffs by mouth every 4 hours as needed for Wheezing. 1 Inhaler 11/06/2017 Active albuterol sulfate (PROVENTIL) (5 MG/ML) 0.5% nebulizer solution Inhale 2.5 mg via nebulizer every 4 hours as needed for Wheezing. 20 mL 12 01/12/2018 Active Nebulizers (NEBULIZER COMPRESSOR) MISCIndications:Asth ma, allergic Use as directed 1 Each 01/12/2018 Active Metoclopramide HCl 10 MG Oral Tablet Take 1 Tablet by mouth 4 times a day as needed (abdominal cramping). Active Ondansetron 4 MG Oral Tablet Disintegrating (Zofran) Place 1 Tablet (4 mg) every 8 hours as needed on tongue for Nausea. dissolve on tongue. 18 Tablet 09/05/2021 Active Omeprazole 40 MG Oral Capsule Delayed Release (PriLOSEC) Take 1 Capsule by mouth in the morning. Active clonazePAM 1 MG Oral Tablet Take 1 Tablet by mouth 3 times a day as needed for Anxiety. Active traZODone HCl 100 MG Oral Tablet (Desyrel) 06/07/2023 Active Trelegy Ellipta 100-62.5-25 MCG/ACT Aerosol Powder Breath Activated (Fluticasone-Umeclid inium-Vilanterol) Inhale 1 Puff by mouth in the morning. 60 Each 6 01/30/2024 Active Naltrexone HCl 50 MG Oral Tablet (Revia) Take 1 Tablet by mouth in the morning for 13 days. 13 Tablet 01/31/2024 02/13/2024 Active Propranolol HCl 10 MG Oral Tablet (Inderal) Take 1 Tablet by mouth 2 times a day as needed for Anxiety (panic attack). 60 Tablet 01/30/2024 Active Ursodiol 300 MG Oral Capsule (Actigall)Indication s:Primary biliary cholangitis (HCC) TAKES BY MOUTH 2 CAPSULE IN THE MORNING AND 1 CAPSULE BEFORE BEDTIME. 270 Capsule 3 01/30/2024 Active Folic Acid 1 MG Oral Tablet Take 1 Tablet by mouth in the morning. 30 Tablet 3 01/31/2024 Active Thiamine HCl 100 MG Oral Tablet (vitamin B-1) Take 1 Tablet by mouth in the morning. 30 Tablet 3 01/30/2024 Active Multi-Vitamins Oral Tablet Take 1 Tablet by mouth daily at noon. 30 Tablet 3 01/30/2024 Active Hospital, Clinic, or Other Facility Administered Medication Ordered Dose Route Frequency Start Date End Date Status Albuterol Sulfate (Proventil) (2.5 MG/3ML) 0.083% inhalation solution 2.5 mgIndications:Asthma with COPD (chronic obstructive pulmonary disease) (HCC) 2.5 mg NEBULIZER PRN 02/04/2023 02/04/2024 Active Albuterol Sulfate (Proventil) (5 MG/ML) 0.5% *conc* inhalation solution 2.5 mgIndications:Asthma with COPD (chronic obstructive pulmonary disease) (HCC) 2.5 mg NEBULIZER PRN 02/04/2023 02/04/2024 Active documented as of this encounter (statuses as of 02/02/2024) Active Problems Problem Noted Date Diagnosed Date Acute metabolic encephalopathy 01/29/2024 Alcohol withdrawal delirium 01/29/2024 Alcoholic fatty liver 01/29/2024 Malnutrition of moderate degree 01/29/2024 Primary biliary cirrhosis 01/29/2024 Alcoholic hepatitis without ascites 01/29/2024 Alcohol abuse 01/28/2024 Asthma, moderate persistent 10/02/2022 Alcohol dependence with intoxication 01/05/2022 Chronic post-traumatic stress disorder (PTSD) History of OCD (obsessive compulsive disorder) 0 01/08/2018 Borderline personality disorder 01/02/2018 Cannabis dependence 01/02/2018 Cocaine abuse 01/02/2018 Iron deficiency anemia 10/13/2017 S/P gastric bypass 05/23/2016 Overview: On 04/26/16 she under went laparoscopic revision of sleeve gastrectomy to RYGBP, UGI endoscopy, laparoscopic bilateral truncal vagotomy, laparoscopic primary hiatal hernia repair by Dr. Saavedra. 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 Overview: Performed at [facility] Insomnia 12/28/2013 Overview: ICD-10 update of inactive term Attention deficit hyperactivity disorder (ADHD) 09/25/2010 Overview: ICD-10 update of inactive term Asthma with severity to be determined 02/01/2010 Overview: Per Asthma Taxonomy Vitamin D deficiency 01/09/2010 Hereditary and idiopathic peripheral neuropathy 01/05/2010 Overview: On EMG, no radiculopathy or myopathy Other disorder of eating of nonorganic origin Overview: Binge/Purge Socialized conduct disorder 06/28/2009 Bipolar 1 disorder 06/20/2009 Fibromyalgia 03/20/2009 documented as of this encounter (statuses as of 02/02/2024) Resolved Problems Problem Noted Date Diagnosed Date Resolved Date C. difficile colitis 11/02/2021 024 Cocaine abuse in remission 01/01/2018 0 01/02/2018 [place] toxicity 12/31/2017 01/01/2018 Suicidal ideation 12/31/2017 01/29/2024 Dysphagia 07/31/2010 05/23/2016 Overview: With esophageal stricture ICD-10 update of inactive term Calculus of kidney 01/23/2010 6 Overview: 5 mm left kidney Obesity, morbid (more than 1 00 lbs over ideal weight or BMI > 40) 01/23/2010 05/23/2016 Overview: Per Obesity Protocol, #19 ICD-10 update of inactive term Myalgia and myositis 010 Asthma, allergic 02/01/2010 Bipolar I disorder, most rec ent episode mixed, mild 01/12/2018 Overview: Paxil- personality changes Zoloft- throat swelling Wellbutrin- personality Generalized anxiety disorder 01/12/2018 documented as of this encounter (statuses as of 02/02/2024) Immunizations Name Administration Dates Next Due PPD 09/04/2017,08/13/2017 Pneumococcal Polysaccharide PPV23 (Pneumovax) 10/23/2011 Seasonal Influenza, Split, I IV3, With Preserve, Inj 09/04/2012,05/25/2010,05/01/2009 TDAP, Age 7 and older, IM (Adacel) 10/23/2011, documented as of this encounter Social History Tobacco Use Types Packs/Day Years Used Date Smoking Tobacco: Every Day Cigarettes 1 20 Cigars Smokeless Tobacco: Never Comments:01/28/24 currently l ittle cigars-smokes 0.5 ppd Alcohol Use Standard Drinks/Week Comments Yes 42 (1 standard drink = 0.6 oz pu re alcohol) daily; 6 pack a day PHQ-2 Answer Date Recorded PHQ Adult Total Score 20 01/04/2022 Personal Safety Answer Date Recorded Do you feel unsafe or have concerns for your saf ety? No 01/28/2024 Do you have concerns for you r family's safety? (Household - for ages 0-17 years) Not on file 01/28/2024 Utilities Answer Date Recorded Do you have trouble paying y our heating, water, or electric bill? No 01/28/2024 Is your family able to pay t he heat, water, or electric bill? (Household - for ages 0-17 years) Not on file 01/28/2024 Does your family have access to good internet? (Household - for ages 0-17 years) Not on file 01/28/2024 Social Connections Answer Date Recorded How often do you feel lonely or isolated from those around you? (Adult - for ages 18 years and over) Not on file 01/27/2024 Transportation Needs Answer Date Record ed Do you have trouble getting a ride to medical visits or work? (Adult - for ages 18 years and over) Not on file 01/28/2024 Does your family have a hard time getting a ride to doctors visits? (Household - for ages 0-17 years) Not on file 01/28/2024 Has lack of transportation k ept you from medical appointments, meetings, work, or from getting things needed for daily living? Check all that apply. Yes, it has kept me from medical appointments 01/28/2024 Do you (or your family) have trouble finding or paying for a ride (transportation)? (Household - for ages 0-17 years) Not on file 01/28/2024 Housing Stability Answer Date Recorded Do you currently live in a s helter or have no steady place to sleep at night? (Adult - for ages 18 years and over) Not on file 01/28/2024 Do you think you are at risk of becoming homeless? (Adult - for ages 18 years and over) Not on file 01/28/2024 Does your family worry about paying for your home or becoming homeless? (Household - for ages 0-17 years) Not on file 0 01/28/2024 Are you homeless or worried that you might be in the future? No 01/28/2024 Are you (or your family) chauncey eless or worried that you might be in the future? (Household - for ages 0-17 years) Not on file Food Insecurity Answer Date Recorded Do you need food for this week? No 01/28/2024 Are you able to get enough f ood for your family? (Household - for ages 0-17 years) Not on file 01/28/2024 Does your family need food t his week? (Household - for ages 0-17 years) Not on file 01/28/2024 Do you always have enough fo od for your family? (Household - for ages 0-17 years) Not on file 01/28/2024 Sex and Gender Information Value Date Recorded Sex Assigned at Not on file Gender Identity Not on file Sexual Orientation Not on file Job Start Date Occupation Industry Not on file Not on file Not on file documented as of this encounter Functional Status Functional Status Response Date of Assess ment Are you deaf or do you have serious difficulty hearing? Yes-low hearing in L ear 01/28/2024 Are you blind or do you have serious difficulty seeing, even when wearing glasses? No 01/28/2024 Do you have serious difficul ty walking or climbing stairs? (5 years old or older) Yes 01/28/2024 Do you have difficulty dress ing or bathing? (5 years old or older) No 01/28/2024 Because of a physical, menta l, or emotional condition, do you have difficulty doing errands alone such as visiting a doctor s office or shopping? (15 years old or older) No 01/28/2024 Cognitive Status Response Date of Assessm ent Because of a physical, menta l, or emotional condition, do you have serious difficulty concentrating, remembering, or making decisions? (5 years old or older) No 01/28/2024 documented as of this encounter Plan of Treatment Scheduled Procedures Name Priority Associated Diagnoses Date/Ti me ESOPHAGOGASTRODUODENOSCOPY ( EGD), FLEXIBLE, TRANSORAL, DIAGNOSTIC Recall S/P gastric bypass Gastric ulcer, unspecified chronicity, unspecified whether gastric ulcer hemorrhage or perforation present Health Maintenance Due Date Last Done Comments Hepatitis B (1 of 3 - 19+ 3-dose series) 2000 HPV/Co-Test 2011 Cervical Cancer Screening 03/20/2012 Pap Smear 03/20/2012 03/20/2009, 03/20/2009 Pneumococcal Vaccine: Pediatrics (0 to 5 Years) and At-Risk Patients (6 to 64 Years) (2 of 2 - PCV) 10/22/2012 10/23/2011 Mammogram 2021 DTaP,Tdap,and Td Vaccines (3 - Td or Tdap) 10/22/2021 10/23/2011, 03/20/2009 Depression Monitoring 01/04/2023 01/04/2022 COVID-19 Vaccine ( season) 2023 DISCUSS TOBACCO CESSATION (REFER TO SMARTSET #3291) 02/05/2024 02/04/2023, 10/02/2022 Influenza Vaccine (FLU shot) (Season Ended) 2024 09/04/2012, 05/25/2010, 05/01/2009 Lipid Panel 01/04/2027 01/04/2022, 01/09/2018 Diabetes Screening 01/29/2027 01/30/2024, 0 01/29/2024, 01/29/2024, Additional history exists GARDASIL-HPV IMMUNIZATION SERIES Aged Out No longer eligible based on patient's age to complete this topic MENINGOCOCCAL (MENACTRA/MENVEO) Aged Out No longer eligible based on patient's age to complete this topic documented as of this encounter Medical Devices Implanted Type Area Regulatory Technician Device Identifier Shelf Expiration Date Model / Serial / Lot I Read Books Hand Plating Variax 2 1.7mm S Locking Plates Straight Implanted:Qty: 1 on 09/04/2021 by Rip Brown, DO at OR [facility] Right: Hand SANDI : TRAUMA [id number] / / Screw Nlk V2 T5 1.7mm L7mm - [id number] Implanted:Qty: 2 on 09/04/2021 by Rip Brown, DO at OR [facility] Right: Hand SANDI : TRAUMA [id number] / / Screw Nlk V2 T5 1.7mm L8mm - [id number] Implanted:Qty: 3 on 09/04/2021 by Rip Brown, DO at [facility] Right: Hand SANDI : TRAUMA [id number] / / Screw Nlk V2 T5 1.7mm L10mm - [id number] Implanted:Qty: 2 on 09/04/2021 by Rip Brown, DO at OR [facility] Right: Hand SANDI : TRAUMA [id number] / / documented as of this encounter Advance Directives * Full Code (Latest Code Status on File) Date Activated Date Inactivated Comments 01/28/2024 6:25 PM 01/30/2024 3:54 PM This order r eflects the patients wishes and were consensually agreed upon. Question Answer Comments Discussion of Advance Directives occurred with: Patient Does the patient have a Living Will? No Does the patient have Health Care Power of Attor anneliese? No * Full Code Date Activated Date Inactivated Comments 01/04/2022 11:30 AM 01/11/2022 5:33 PM This order r eflects the patients wishes and were consensually agreed upon. * Full Code Date Activated Date Inactivated Comments 11/01/2021 7:48 PM 11/05/2021 3:47 PM This order r eflects the patients wishes and were consensually agreed upon. * Full Code Date Activated Date Inactivated Comments 01/07/2018 10:04 PM 01/12/2018 6:16 PM This order r eflects the patients wishes and were consensually agreed upon. * Full Code Date Activated Date Inactivated Comments 01/02/2018 2:58 PM 01/07/2018 6:55 PM This order r eflects the patients wishes and were consensually agreed upon. Question Answer Comments Discussion of Advance Directives occurred with: Not Discussed Does the patient have a Living Will? No Does the patient have Health Care Power of Attor anneliese? No
--- OUTSIDE RECORDS SUMMARY | 2024-02-05 06:47 | External Medical Summary | Summary of Care ---
Author Name Unknown Organization [facility] Address [address] [place] [address] Phone [phone] Care Team Providers Care Food Production Manager Name Role Phone Unavailable Primary Care Provider Unavailabl e Reason for Visit * Reason Onset Date Comments Hospital Follow-Up 01/30/2024 Encounter Details Date Type Department Care Team ([facility] Contact Info) Description 01/30/2024 Telephone [facility] Gastroenterology [address] [facility] [place] [address] Rebeca Ross CRNP [address] [place] [address] Hospital Follow-Up Allergies Active Allergy Reactions Criticality Noted Date [...] mgIndications:Asthma with COPD (chronic obstructive pulmonary disease) ([facility]) 2.5 mg NEBULIZER PRN 02/04/2023 02/04/2024 Active Albuterol Sulfate (Proventil) (5 MG/ML) 0.5% *conc* inhalation solution 2.5 mgIndications:Asthma with COPD (chronic obstructive pulmonary disease) ([facility]) 2.5 mg NEBULIZER PRN 02/04/2023 02/04/2024 Active [...] laparoscopic sleeve gastrectomy 04/19/2015 Overview: Performed at [facility] [place] [place] in 04/2015 Insomnia 12/28/2013 Overview: ICD-10 update [...] Cocaine abuse in remission 01/01/2018 0 01/02/2018 [place] toxicity 12/31/2017 01/01/2018 Suicidal ideation 12/31/2017 01/29/2024 [...] No 01/28/2024 documented as of this encounter Miscellaneous Notes * Telephone Encounter - Sarah Tyler OSA - 02/02/2024 1:11 PM EDT Lmm * Telephone Encounter - Rebeca Ross CRNP - 01/30/2024 1:53 PM EDT Seen in consult at [facility]. Please offer patient outpatient Hepatology appointment for PVC, alcoholic hepatitis. However, it may be that her insurance does not participate with [facility] in an outpatient setting.Patient tells me she has been trying to get in with [facility] [place] [place]. She tells me that she has a [facility] insurance product. documented in this encounter Plan of Treatment Scheduled Procedures [...] this encounter Medical Devices Implanted Type Area V Block Saw Operator Device Identifier Shelf Expiration Date Model / Serial / Lot [place] Hand Plating Variax 2 1.7mm S Locking Plates Straight Implanted:Qty: 1 on 09/04/2021 by Rip Brown DO at OR [facility] Right: Hand SANDI : TRAUMA [id number] / / Screw Nlk V2 T5 1.7mm L7mm - [id number] Implanted:Qty: 2 on 09/04/2021 by Rip Brown DO at OR [facility] Right: Hand SANDI : TRAUMA [id number] / / Screw Nlk V2 T5 1.7mm L8mm - [id number] Implanted:Qty: 3 on 09/04/2021 by Rip Brown DO at OR [facility] Right: Hand SANDI : TRAUMA [id number] / / Screw Nlk V2 T5 1.7mm L10mm - [id number] Implanted:Qty: 2 on 09/04/2021 by Rip Brown DO at OR [facility] Right: Hand SANDI : TRAUMA [id number] / / documented as of this encounter [...]
--- OUTSIDE RECORDS SUMMARY | 2024-02-05 06:47 | External Medical Summary | Summary of Care ---
Author Name Unknown Organization [facility] Address [address] [place] [address] Phone [phone] Care Team Providers Care Transplant Immunologist Name Role Phone Unavailable Primary Care Provider Unavailabl e Reason for Visit * Reason Onset Date Comments Hospital Follow-Up 01/30/2024 Encounter Details Date Type Department Care Team ([facility] Contact Info) Description 01/30/2024 Telephone [facility] Gastroenterology [address] [facility] [place] [address] Rebeca Ross CRNP [address] [place] [address] Hospital Follow-Up Allergies Active Allergy Reactions Criticality [...] mgIndications:Asthma with COPD (chronic obstructive pulmonary disease) ([facility]) 2.5 mg NEBULIZER PRN 02/04/2023 02/04/2024 Active Albuterol Sulfate (Proventil) (5 MG/ML) 0.5% *conc* inhalation solution 2.5 mgIndications:Asthma with COPD (chronic obstructive pulmonary disease) ([facility]) 2.5 mg NEBULIZER PRN 02/04/2023 02/04/2024 Active [...] laparoscopic sleeve gastrectomy 04/19/2015 Overview: Performed at [facility] [place] in 04/2015 Insomnia 12/28/2013 Overview: ICD-10 update [...] Cocaine abuse in remission 01/01/2018 0 01/02/2018 [place] toxicity 12/31/2017 01/01/2018 Suicidal ideation 12/31/2017 01/29/2024 [...] Encounter - Sarah Tyler OSA - 02/02/2024 1:14 PM EDT Pt called back and wants to follow up with [facility]. * Telephone Encounter - Sarah Tyler OSA - 02/02/2024 1:11 PM EDT Lmm * Telephone Encounter - Rebeca Ross CRNP - 01/30/2024 1:53 PM EDT Seen in consult at [facility]. Please offer patient outpatient Hepatology appointment for PVC, alcoholic hepatitis. However, it may be that her insurance does not participate with [facility] in an outpatient setting.Patient tells me she has been trying to get in with [facility]. She tells me that she has a [facility] insurance product. documented in this encounter Plan [...] this encounter Medical Devices Implanted Type Area Log Hooker Device Identifier Shelf Expiration Date Model / Serial / Lot [place] Hand Plating Variax 2 1.7mm S Locking Plates Straight Implanted:Qty: 1 on 09/04/2021 by Rip Brown DO at OR [facility] Right: Hand AVELINA : TRAUMA [id number] / / Screw Nlk V2 T5 1.7mm L7mm - [id number] Implanted:Qty: 2 on 09/04/2021 by Rip Brown DO at OR [facility] Right: Hand AVELINA : TRAUMA [id number] / / Screw Nlk V2 T5 1.7mm L8mm - [id number] Implanted:Qty: 3 on 09/04/2021 by Rip Brown DO at OR [facility] Right: Hand AVELINA : TRAUMA [id number] / / Screw Nlk V2 T5 1.7mm L10mm - [id number] Implanted:Qty: 2 on 09/04/2021 by Rip Brown, at OR [facility] Right: Hand AVELINA : TRAUMA [id number] / / documented as of this encounter [...]
--- OUTSIDE RECORDS SUMMARY | 2024-02-05 06:48 | External Medical Summary ---
Author Name Unknown Address Unknown Organization [id number]:[facility]ATORY [facility] - [address] [place] [address] Laboratory Report Ordering Provider Test Date Status JENS SARAH 01/30/2024 05:46:00 Final Observation Date Value Abnormality Reference (Units ) Status Albumin 01/30/2024 05:46:00 2.4 Below low normal 3.8-5.0 (g/dL) Final AST (Aspartate aminotransferase) 01/30/2024 05:46:00 258 Above high normal 10-35 (U/L) Final Alk Phos 01/30/2024 05:46:00 629 Above high normal 35-130 (U/L) Final ALT (Alanine aminotransferase) 01/30/2024 05:46:00 142 Above high normal 10-35 (U/L) Final Bilirubin, Total 01/30/2024 05:46:00 7.6 Above high normal <=1.2 (mg/dL) Final Bilirubin, Direct 01/30/2024 05:46:00 6.1 Above high normal 0.0-0.3 (mg/dL) Final Protein 01/30/2024 05:46:00 5.9 Below low normal 6.0-8.3 (g/dL) Final Performing Location LABORATORY [facility] - [address] [place] [address]
--- OUTSIDE RECORDS SUMMARY | 2024-02-05 06:48 | External Medical Summary | Summary of Care ---
Author Name Unknown Organization [facility] Address [address] [place] [address] Phone [phone] Care Team Providers Care Floor Coverings Installer Name Role Phone Unavailable Primary Care Provider Unavailabl e Reason for Visit * Reason Onset Date Comments Referral 01/30/2024 Encounter Details Date Type Department Care Team ([facility] st Contact Info) Description 01/30/2024 Telephone Addiction Medicine[address] [place] [address] Juni Vance MD [address] [place] [id number] Referral Allergies Active Allergy Reactions Criticality Noted Date [...] as of this encounter (statuses as of 01/30/2024) Medications Medication Sig Dispensed Refills Start Date [...] mgIndications:Asthma with COPD (chronic obstructive pulmonary disease) ([facility]) 2.5 mg NEBULIZER PRN 02/04/2023 02/04/2024 Active Albuterol Sulfate (Proventil) (5 MG/ML) 0.5% *conc* inhalation solution 2.5 mgIndications:Asthma with COPD (chronic obstructive pulmonary disease) ([facility]) 2.5 mg NEBULIZER PRN 02/04/2023 02/04/2024 Active documented as of this encounter (statuses as of 01/30/2024) Active Problems Problem Noted Date Diagnosed Date [...] laparoscopic sleeve gastrectomy 04/19/2015 Overview: Performed at [facility] in 04/2015 Insomnia 12/28/2013 Overview: ICD-10 update [...] as of this encounter (statuses as of 01/30/2024) Resolved Problems Problem Noted Date Diagnosed Date Resolved Date C. difficile colitis 11/02/2021 024 Cocaine abuse in remission 01/01/2018 0 01/02/2018 [place] toxicity 12/31/2017 01/01/2018 Suicidal ideation 12/31/2017 01/29/2024 [...] as of this encounter (statuses as of 01/30/2024) Immunizations Name Administration Dates Next Due PPD [...] encounter Miscellaneous Notes * Telephone Encounter - Gilma Bunch LPN - 01/30/2024 2:13 PM EDT Received call from [facility] about pt needing a follow up appt for MAT, attempted to contact Ginger Okeefe, no answer, left generic message. documented in this encounter Plan of Treatment [...] Depression Monitoring 01/04/2023 01/04/2022 COVID-19 Vaccine ( - 2022- season) 2023 DISCUSS TOBACCO CESSATION (REFER TO [...] this encounter Medical Devices Implanted Type Area Observation Assistant Device Identifier Shelf Expiration Date Model / Serial / Lot [place] Hand Plating Variax 2 1.7mm S Locking Plates Straight Implanted:Qty: 1 on 09/04/2021 by Rip Brown, at OR [facility] Right: Hand SANDI : TRAUMA [id number] / / Screw Nlk V2 T5 1.7mm L7mm - [id number] Implanted:Qty: 2 on 09/04/2021 by Rip Brown DO at OR [facility] Right: Hand SANDI : TRAUMA [id number] / / Screw Nlk V2 T5 1.7mm L8mm - [id number] Implanted:Qty: 3 on 09/04/2021 by Rip Brown DO at OR [facility] Right: Hand SANDI : TRAUMA [id number] / / Screw Nlk V2 T5 1.7mm L10mm - [id number] Implanted:Qty: 2 on 09/04/2021 by Rip Brown DO at OR [facility] Right: Hand SANDI : TRAUMA [id number] / / documented as of this encounter Advance Directives * Full Code (Latest Code Status on File) Date Activated Date Inactivated Comments 01/28/2024 6:25 PM This order ref lects the patients wishes and were consensually agreed [...]
--- OUTSIDE RECORDS SUMMARY | 2024-02-05 06:48 | External Medical Summary ---
Author Name Unknown Address Unknown Organization [facility] [address] [place] [address] Laboratory Report Ordering Provider Test Date Status JENS SARAH 01/29/2024 08:06:00 Final Observation Date Value Abnormality Reference (Units ) Status BUN 01/29/2024 08:06:00 7 6-20 (mg/dL) Final Creatinine 01/29/2024 08:06:00 0.7 0.5-1.0 (mg/dL) Final Glomerular filtration rate/1.73 sq M.predicted [Volume Rate/Area] in Serum, Plasma or Blood by Creatinine-based formula (CKD-EPI) 01/29/2024 08:06:00 >90 >=60 (mL/min) Final eGFR is calculated based on the CKD-EPI 2020 equation Sodium 01/29/2024 08:06:00 132 Below low normal 135 -146 (mmol/L) Final Potassium 01/29/2024 08:06:00 4.4 3.5-5.1 (m mol/L) Final Cl 01/29/2024 08:06:00 97 Below low normal 98- 107 (mmol/L) Final CO2 01/29/2024 08:06:00 24 22-32 (mmo l/L) Final Anion gap 01/29/2024 08:06:00 11 7-15 (mmol /L) Final Glucose 01/29/2024 08:06:00 66 Below low normal 70- 120 (mg/dL) Final Calcium 01/29/2024 08:06:00 8.6 8.4-10.2 ( mg/dL) Final Performing Location [facility] [address] [facility] [address] [place] [id number]
--- OUTSIDE RECORDS SUMMARY | 2024-02-05 06:48 | External Medical Summary ---
Author Name Unknown Address Unknown Organization [facility] [address] [place] [address] Laboratory Report Ordering Provider Test Date Status PEDRO LUIS BUTTSNEY 01/28/2024 13:38:46 Final Observation Date Value Abnormality Reference (Units ) Status Ammonia 01/28/2024 13:38:46 18 11-35 (umo l/L) Final Performing Location [facility] [address] [place] [address]
--- OUTSIDE RECORDS SUMMARY | 2024-02-05 06:48 | External Medical Summary | Summary of Care ---
Author Name Unknown Organization [facility] Address [address] [place] [address] Phone [phone] Care Team Providers Care Vp Purchasing Name Role Phone Unavailable Primary Care Provider Unavailabl e Reason for Visit * Reason Comments Abdominal Pain * Auth/Cert Specialty Diagnoses / Procedures Referred By Contac t Referred To Contact [facility], [facility] [address] [place] [address] Phone: [phone] Emergency Medicine [address] [address] Referral ID Status Reason Start Date Expiration Date Visits Re quested Visits Authorized [id number] Encounter Details Date Type Department Care Team (Latest Contact Info) Description 01/28/2024 12:54 PM EDT - 01/30/2024 11:49 AM EDT Hospital Encounter 3B [facility] 3rd Floor [address] [place] [address] Aamir Jain, [address] [place] [id number] Karishma Guererro MD [address] [place] [address] [phone] Kamron Merritt MD [address] [place] [address]ist [place] [address] Dustin Trevino DO [address] [place], [place] [address]ist [place] [address] Joni Hernandez MD [address] [facility] Services [place], [place] [id number] Various: KRAVS,EKG Discharge Disposition: Home - Self Care Allergies Active Allergy Reactions Criticality Noted Date [...] hours as needed for Wheezing. 1 Inhaler 8 Active albuterol sulfate (PROVENTIL) (5 MG/ML) 0.5% nebulizer solution Inhale 2.5 mg via nebulizer every 4 hours as needed for Wheezing. 20 mL 12 8 Active Nebulizers (NEBULIZER COMPRESSOR) MISCIndications:Ast hma, allergic Use as directed 1 Each 8 Active Metoclopramide HCl 10 MG Oral Tablet Take 1 Tablet by mouth 4 times a day as needed (abdominal cramping). Active Ondansetron 4 MG Oral Tablet Disintegrating (Zofran) Place 1 Tablet (4 mg) every 8 hours as needed on tongue for Nausea. dissolve on tongue. 18 Tablet 2 Active Omeprazole 40 MG Oral Capsule Delayed Release (PriLOSEC) Take 1 Capsule by mouth in the morning. Active clonazePAM 1 MG Oral Tablet Take 1 Tablet by mouth 3 times a day as needed for Anxiety. Active traZODone HCl 100 MG Oral Tablet (Desyrel) 3 Active Trelegy Ellipta 100-62.5-25 MCG/ACT Aerosol Powder Breath Activated (Fluticasone-Umecli dinium-Vilanterol) Inhale 1 Puff by mouth in the morning. 60 Each 6 4 Active Naltrexone HCl 50 MG Oral Tablet (Revia) Take 1 Tablet by mouth in the morning for 13 days. 13 Tablet 4 02/13/20 24 Active Propranolol HCl 10 MG Oral Tablet (Inderal) Take 1 Tablet by mouth 2 times a day as needed for Anxiety (panic attack). 60 Tablet 4 Active Ursodiol 300 MG Oral Capsule (Actigall)Indicatio ns:Primary biliary cholangitis (HCC) TAKES BY MOUTH 2 CAPSULE IN THE MORNING AND 1 CAPSULE BEFORE BEDTIME. 270 Capsule 3 4 Active Folic Acid 1 MG Oral Tablet Take 1 Tablet by mouth in the morning. 30 Tablet 3 4 Active Thiamine HCl 100 MG Oral Tablet (vitamin B-1) Take 1 Tablet by mouth in the morning. 30 Tablet 3 4 Active Multi-Vitamins Oral Tablet Take 1 Tablet by mouth daily at noon. 30 Tablet 3 4 Active Simethicone (BICARSIM) 80 MG Tablet Take 1 Tab by mouth every 6 hours as needed for Gas. 30 Tab 8 01/30/20 24 Discontinued Tiotropium [place]-Olodaterol 2.5-2.5 MCG/ACT Inhalation Aerosol Solution (Stiolto Respimat) Inhale 2 Puffs by mouth in the morning. 4 g 11 3 01/30/20 24 Discontinued Ursodiol 300 MG Oral Capsule (Actigall)Indicatio ns:Primary biliary cholangitis (HCC) TAKE BY MOUTH 1 CAPSULE IN THE MORNING AND 1 CAPSULE AT NOON AND 1 CAPSULE BEFORE BEDTIME. 270 Capsule 3 3 01/30/20 24 Discontinued Trelegy Ellipta 100-62.5-25 MCG/ACT Aerosol Powder Breath Activated (Fluticasone-Umecli dinium-Vilanterol) Inhale 1 Puff by mouth in the morning. 60 Each 6 3 01/30/20 24 Discontinued buPROPion HCl 75 MG Oral Tablet (Wellbutrin) Take 1 Tablet by mouth in the morning. 3 01/30/20 24 Discontinued Prazosin HCl 5 MG Oral Capsule (Minipress) Take 1 Capsule by mouth. 3 01/30/20 24 Discontinued lamoTRIgine 25 MG Oral Tablet (LaMICtal) 3 01/30/20 24 Discontinued guanFACINE HCl 2 MG Oral Tablet Take 1 Tablet by mouth in the morning and 1 Tablet before bedtime. 3 01/30/20 24 Discontinued Propranolol HCl 10 MG Oral Tablet (Inderal) TAKE 1 TABLET BY MOUTH TWICE A DAY NEEDED FOR PANIC ATTACKS 3 01/30/20 24 Discontinued Ziprasidone HCl 80 MG Oral Capsule (Geodon) Take 1 Capsule by mouth in the morning. 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 01/01/2018 Suicidal ideation 12/31/2017 01/29/2024 [...] Cigarettes 1 20 Cigars Smokeless Tobacco: Never Tobacco Cessation:Ready to Q uit: Not Asked; Counseling Given: Not Answered Comments:01/28/24 currently little cigars-smokes 0.5 ppd Alcohol Use Standard Drinks/Week [...] on file documented as of this encounter Last Filed Vital Signs Vital Sign Reading Time Taken Comments Blood Pressure 101/69 01/30/2024 7:58 AM EDT Pulse 81 01/30/2024 8:00 AM EDT Temperature 36.4 C (97.5 F) 01/30/2024 7:58 AM ED T Respiratory Rate 16 01/30/2024 8:00 AM EDT Oxygen Saturation 98% 01/30/2024 8:00 AM EDT Inhaled Oxygen Concentration - - Weight 52.4 kg (115 lb 9.6 oz) 01/30/2024 5:27 A M EDT Height 153.7 cm (5' 0.5") 01/28/2024 6:29 PM EDT Body Mass Index 22.2 01/28/2024 6:29 PM EDT documented in this encounter Functional Status Functional Status Response [...] No 01/28/2024 documented as of this encounter Discharge Instructions * Discharge Instr - AVS* Joni Hernandez MD - 01/30/2024 11:08 AM EDT Discharge Date: 01/30/24 The information below provides you with the instructions and the list of medications you need to betaking following discharge from the hospital. If you have any questions, please ask before leaving. If you have questions after leaving, you can reach us at the numbers below. YOUR HOSPITAL PROVIDERS: Discharging Provider: Joni Hernandez MD Provider Department: Hospital Medicine To reach this Provider Friday through Friday (8:00 AM to 4:30 PM) for any questions or test results: Call [phone] For after-hours concerns: Call [phone] and have your provider paged, or the provider employee relations consultant for the Department of Hospital Medicine paged. Please note, the discharging provider will not be able to provide you with any medications refills.Please discuss these with your primary care provider. Worsening Symptoms: If you have new symptoms, or your symptoms get worse, please contact your Discharge Provider or Primary Care Provider (PCP). If these providers are not available, you can go to your local [facility] or Urgent Care Clinic during their business hours. In an EMERGENCY situation: Call [phone] or go to the nearest emergency room. A BRIEF SUMMARY OF YOUR HOSPITAL STAY: You came to the hospital with: complaint of abdominal pain Your main diagnosis at discharge was: Alcohol dependence Alcohol abuse Alcoholic hepatitis Hx of polysubstance use Operations & Procedures performed: none Complications: none applicable Inpatient test results that are pending at discharge: none Advance Directive Documented: Advance Directive Does the Patient have an Advance Directive? No YOUR FOLLOW UP APPOINTMENTS: Primary Care Provider Information: PCP: No primary care provider on file. No primary physician on file. None (office) None (fax) An appointment was requested with your PCP (No primary care provider on file.) within 7 days. (Please take this form to this visit with your primary care physician.) You need the following studies in the future: LFT in one week, BMP: date - in one week, and CBC: date - in one week INSTRUCTIONS: Diet: low fat diet , high calorie, high protein diet Activity: As tolerated Driving: Do not drive. Start Naltrexone 50 mg 1 tablet in the morning for 13 days , follow up taper dose with addition medicine or family doctor Do not take Naltrexone with alcohol and other illicit drugs. Additional Instructions: - Call your primary care physician or seek medical attention if worsening abdominal pain, yellow skin, itchiness, nausea, vomiting. * Care Mgmt Instr - AVS* Earline Mehta, Natural Gas Inspector - 01/30/2024 10:55 AM EDT No care steam brush operator to display Referral made to [facility] for OP D/A and mental health counseling. [facility] will call to schedule the appointment directly with pt. Address: [address] [place] [address] P: [phone] [facility] will call you directly with an appointment. P:[phone] Address:[address] [place] [address] PCP appointment with 02/02/24 at 1PM Address:[address] [place] [address] P:[phone] documented in this encounter Progress Notes * Dustin Trevino DO - 01/29/2024 11:26 AM EDT Images from the original note were not included. [facility] 3B-3018/W INTERVAL HISTORY: Patient was more confused. States she was significant abdominal pain. Eating breakfast. Objective Physical Exam Most Recent Vital Signs: BP: 98 mmHg/68 mmHg (01/29/24 1415) Pulse: 66 (01/29/24 1415) Resp: 18 (01/29/24 1415) Temp: 35.89 C (01/29/24 1415) Temp Summary: Temp Min: 35.7 C (96.3 F) Max: 36.6 C (97.9 F) SpO2: 94 % (01/29/24 1415) O2 flow rate: Supplemental O2 Delivery: Room Air, None (01/29/24 1415) Constitutional: (+) ill appearing, underweight Eyes: icterus CV: normal rate, normal rhythm Chest: normal respiratory effort, decreased breath sounds Abdomen: soft, diffuse tenderness Extremities: no edema Neuro: alert, weak, little drowsy Psych: Depressed/anxious Peripheral Line Right Antecubital 20 Gauge (Active) Number of days: 1 STUDIES: Encounter Orders Labs and other studies reviewed with pertinent findings noted below: LFTs reviewed slightly improved Reviewed CT and ultrasound abdomen reports, findings consistent with alcohol fatty liver with ascites Sodium 132, potassium and magnesium within normal range Hemoglobin 9.6, platelets 105 Assessment and Plan IMPRESSION : Principal Problem: Alcoholic hepatitis without ascites Active Problems: Bipolar 1 disorder (HCC) Hereditary and idiopathic peripheral neuropathy Asthma with severity to be determined S/P gastric bypass Intestinal postoperative nonabsorption Iron deficiency anemia Chronic post-traumatic stress disorder (PTSD) Alcohol abuse Acute metabolic encephalopathy Alcohol withdrawal delirium (HCC) Alcoholic fatty liver Malnutrition of moderate degree (HCC) Primary biliary cirrhosis (HCC) Resolved Problems: * No resolved hospital problems. * I have examined the patient and consistent with the dietitian's findings found malnutrition presentof Moderate (01/29/24 1105) degree. This is consistent with such due to Muscle loss;Inadequate energy intake;Weight loss (01/29/24 1340). I have also reviewed and agree with the dietitian's plan of care which include Oral nutritional supplement ordered/adjusted (01/29/24 1105). DIFFERENTIAL AND PLAN: Patient with abdominal pain significant liver abnormalities in the setting of alcohol abuse. High suspicion for alcohol hepatitis. Patient with metabolic encephalopathy. Patient was critically ill high risk for worsening symptoms, decompensation and even . Patient requires hospital level care,intervention specialty support Continue alcohol withdrawal protocol Start pentoxifylline for alcohol hepatitis GI consultation pending Monitor liver functions and electrolytes Care management for possible inpatient alcohol rehab Continue outpatient medications for management of mental health issues Reviewed GI consultation. Restart treatment for primary biliary cirrhosis. PHARMACOLOGIC VTE PROPHYLAXIS: This patient does not have an active medication from one of the medication groupers. CODE STATUS: Full Code EXPECTED DISCHARGE DATE: 01/31/2024 * Karishma Guerrero MD - 01/28/2024 4:16 PM EDT Patient signed out to me by Dr. Jain at 16:15. History: Patient is a 43-year-old female presenting with abdominal pain. Patient has a history of alcohol dependence. She has been having diffuse abdominal pain for the last month that is gotten significantly worse, most notably last night. Reports that it was mainly in her right upper quadrant butseems to also radiate around her abdomen. Also complaining of some shortness of breath. Patient repo rtedly had some yellowing of her eyes over the last few days. She reports diarrhea. Denies any notable fevers or chills. Denies any chest pain. MDM: - EKG reviewed by myself showed normal sinus rhythm. Rate 90 beats per minute. QT 376. No acute ischemic changes. - Laboratory workup interpreted by myself showed normal WBC; stable electrolytes; negative ethanol;negative hCG; normal lipase; normal troponin; elevated BNP (303); transaminitis (AST 456; ALT 208);elevated total bilirubin (7.5) - CT abdomen/pelvis with IV contrast showed hepatomegaly and diffuse fatty infiltration of the liver which is new since her previous study. Also noted to have a nonobstructing 0.2 cm right renal calculus. Small amount of free fluid in the right pericolic gutter and pelvis. Mild diffuse anasarca. - Patient was started on CIWA protocol by Dr. Jain, given her significant alcohol use history andnoted tremors on his examination. - Patient last received ativan at 14:10. On reassessment at 17:30, she appears comfortable and has no significant tachycardia or tremors. - Hospitalist consulted for admission at 17:42. - Patient admitted to inpatient hospitalist service for further evaluation and management. ED Course as of 01/28/24 1743 FriJan 28, 2024 1524 Patient's liver enzymes are significantly elevated. The ALT and AST have risen quite a bit. AST much more elevated as well. Likely do the the alcohol. Bilirubin is 7.5. Direct is 5.4. CT scan ispending. [AT] 1612 Presenting with abdominal pain. Hx of alcoholism. Scleral icterus for last few days. Plan: - f/u CT scan. Admit for liver failure [RP] 1614 Patient's procalcitonin is 0.24. Troponin is 7. CT abdomen pelvis pending. I have signed this patient out to Dr. Guerrero pending the CT scan result and further care based on this. [AT] 1724 Paged hospitalist for admission [RP] ED Course User Index [AT] Susy Aamir Magdaleno, [RP] Karishma Guerrero MD Diagnosis: ICD-10-CM 1. Generalized abdominal pain R10.84 2. SOB (shortness of breath) R06.02 3. Transaminitis R74.01 4. Serum total bilirubin elevated R17 5. Elevated brain natriuretic peptide (BNP) level R79.89 6. Alcohol abuse F10.10 Disposition: Admit Karishma Guerrero MD 01/28/24 5:42 PM documented in this encounter H&P Notes * Kamron Merritt MD - 01/28/2024 5:31 PM EDT Images from the original note were not included. [facility] 3B-3018/W PRESENTING PROBLEM: abdominal pain HPI: 43-year-old with past medical history depression, bipolar, ADHD, PTSD, status post laparoscopic sleeve and gastric bypass, prior history of cocaine and marijuana abuse who presented to the ED for evaluation of increasing abdominal pain and new onset scleral icterus. Patient reports diffuse nonspecific abdominal pain for a month. However, her pain got much worse and located in the right upperquadrant for the past week. She has an appointment to have a right upper quadrant examined. She is concerned that her mesh is now palpable. She reports baseline diarrhea that is chronic. Some nausea and vomiting. She has a tremor. Based on the tremor, the ED provider gave her Ativan and her tremor i mproved. She reports significant anxiety about her liver and she is interested in rehab options. She was seen in the presence of her significant other. He reports the patient drinks about a case aweek with some hard alcohol. The last hard liquor was about a week ago. . He reports that she is toestablish with a human resources executive to look at her liver and has an appointment with primary [facility] to look at her hernia mesh. ED workup significant for no ischemic changes. Chest x-ray was unremarkable. CT abdomen and pelvis significant for extensive diffuse fatty infiltration of the liver which is new since the prior study. No biliary ductal dilatation. There is mild diffuse anasarca, small amount of free fluid is seen in the right paracolic gutter and pelvis in the incidental finding of a nonobstructing 0.2 cm right renal calculus. Patient is status post a Leonora-en-Y gastric bypass. Troponin of 7. BNP 303. BMP unremarkable. Lactate of 2.7, which improved 1.2. Lipase of 20. PT INR and a PTT were normal. Beta hCG negative. CBC significant for mild anemia with a mild thrombocytopenia. Both are new. CRP of 5. Procalci tonin of 0.24. Blood alcohol level negative. LFTs significant for a low albumin of 2.8. AST significantly elevated to 456, ALT 208, alk phos 731, total bili 7.5, direct bili 5.4. Ammonia 18. Patient received DuoNeb x1, IV Pepcid, folic acid, IV Dilaudid, Zofran, and oral Ativan per [facility] protocol Patient referred to Hospital Medicine for further evaluation of transaminitis likely related to alcohol abuse and possible alcohol withdrawal. Subjective Patient's past history, medications, and allergies were reviewed. Objective Physical Exam Most Recent Vital Signs: BP: 118 mmHg/86 mmHg (01/28/24 1800) Pulse: 86 (01/28/24 1800) Resp: 20 (01/28/24 1800) Temp: 36.39 C (01/28/24 1250) Temp Summary: Temp Min: 36.4 C (97.5 F) Max: 36.4 C (97.5 F) SpO2: 98 % (01/28/24 1452) O2 flow rate: Supplemental O2 Delivery: Room Air, None (01/28/24 1452) Physical Exam Vitals and nursing note reviewed. Exam conducted with a multimedia artist present. Constitutional: General: She is in acute distress. Appearance: She is ill-appearing. HENT: Head: Normocephalic and atraumatic. Right Ear: Tympanic membrane and external ear normal. Left Ear: Tympanic membrane and external ear normal. Nose: Nose normal. Mouth/Throat: Mouth: Mucous membranes are moist. Pharynx: Oropharynx is clear. Eyes: General: Scleral icterus present. Extraocular Movements: Extraocular movements intact. Conjunctiva/sclera: Conjunctivae normal. Pupils: Pupils are equal, round, and reactive to light. Cardiovascular: Rate and Rhythm: Normal rate and regular rhythm. Pulses: Normal pulses. Heart sounds: Normal heart sounds. No murmur heard. No friction rub. No gallop. Pulmonary: Effort: Pulmonary effort is normal. No respiratory distress. Breath sounds: Normal breath sounds. No stridor. No wheezing, rhonchi or rales. Chest: Chest wall: No tenderness. Abdominal: General: Abdomen is flat. A surgical scar is present. Bowel sounds are normal. Palpations: Abdomen is soft. Tenderness: There is generalized abdominal tenderness. Comments: Palpable surgical mesh increased with Valsalva in right upper quadrant Musculoskeletal: General: Normal range of motion. Cervical back: Normal range of motion and neck supple. Right lower leg: No edema. Left lower leg: No edema. Skin: General: Skin is warm and dry. Capillary Refill: Capillary refill takes less than 2 seconds. Neurological: General: No focal deficit present. Mental Status: She is alert and oriented to person, place, and time. Psychiatric: Mood and Affect: Mood normal. Behavior: Behavior normal. Peripheral Line Right Antecubital 20 Gauge (Active) Number of days: 0 STUDIES: Encounter Orders Labs and other studies reviewed with pertinent findings noted below: CT ABD/PELVIS W IV CONTRAST - WO ORAL CONTRAST Result Date: 01/28/2024 IMPRESSION: 1. Hepatomegaly. There is extensive diffuse fatty infiltration of the liver, which is new since the prior study. No biliary ductal dilatation is visualized. 2. Nonobstructing 0.2 cm rightrenal calculus. 3. Small amount of free fluid is seen in the right paracolic gutter and pelvis. 4. Mild diffuse anasarca. THIS DOCUMENT HAS BEEN ELECTRONICALLY SIGNED BY JOSE F SORENSEN DO XR CHEST 1 VIEW Result Date: 01/28/2024 IMPRESSION: No acute cardiopumonary process. THIS DOCUMENT HAS BEEN ELECTRONICALLY SIGNED BY JOSE F SORENSEN DO Results for orders placed or performed during the hospital encounter of 01/28/24 BASIC METABOLIC PANEL Result Value Ref Range BUN 7 6 - 20 mg/dL Creatinine 0.6 0.5 - 1.0 mg/dL Estimated Glomerular Filtration Rate >90 >=60 mL/min Sodium 135 135 - 146 mmol/L Potassium 3.8 3.5 - 5.1 mmol/L Chloride 98 98 - 107 mmol/L CO2 23 22 - 32 mmol/L Anion Gap 14 7 - 15 mmol/L Glucose 72 70 - 120 mg/dL Calcium 8.8 8.4 - 10.2 mg/dL HEPATIC FUNCTION PANEL Result Value Ref Range Albumin 2.8 (L) 3.8 - 5.0 g/dL AST 456 (H) 10 - 35 U/L Alkaline Phosphatase 731 (H) 35 - 130 U/L ALT 208 (H) 10 - 35 U/L Bilirubin, Total 7.5 (H) <=1.2 mg/dL Bilirubin, Direct 5.4 (H) 0.0 - 0.3 mg/dL Protein 6.5 6.0 - 8.3 g/dL LIPASE Result Value Ref Range Lipase 20 13 - 60 U/L LACTATE WITH REFLEX IF ABNORMAL Result Value Ref Range Lactate 2.7 (H) 0.4 - 2.0 mmol/L AMMONIA Result Value Ref Range Ammonia 18 11 - 35 umol/L PROCALCITONIN Result Value Ref Range Procalcitonin 0.24 (H) <0.10 ng/mL CRP (INFLAMMATORY MARKER) Result Value Ref Range CRP (Inflammatory Marker) 5 <=5 mg/L TROPONIN T, HIGH SENSITIVITY Result Value Ref Range Troponin T, High Sensitivity 7 <=14 ng/L BNP, NT-PRO Result Value Ref Range BNP, NT-Pro 303 (H) <300 pg/mL PT INR Result Value Ref Range Prothrombin Time 12.5 11.6 - 15.2 seconds INR 0.9 0.8 - 1.2 APTT Result Value Ref Range aPTT 32 21 - 38 seconds BETA-HCG, QUANTITATIVE Result Value Ref Range Beta-HCG, Quantitative <0.3 <=1.0 mIU/mL ETHANOL, MEDICAL Result Value Ref Range ETHANOL, MEDICAL Negative Negative LACTATE Result Value Ref Range Lactate 1.2 0.4 - 2.0 mmol/L CBC Result Value Ref Range WBC 5.45 4.00 - 10.80 K/uL RBC 3.05 3.85 - 5.15 M/uL HGB 10.5 (L) 12.0 - 15.3 g/dL HCT 30.8 (L) 36.0 - 45.2 % MCV 101.0 81.5 - 97.5 fL MCH 34.4 27.0 - 34.0 pg MCHC 34.1 32.0 - 36.0 g/dL RDW 22.1 11.5 - 15.5 % PLT 117 (L) 140 - 400 K/uL MPV 11.2 6.6 - 11.1 fL nRBCs 0 <=0 /100 WBCs DIFFERENTIAL, AUTOMATED Result Value Ref Range WBC 5.45 4.00 - 10.80 K/uL Neutrophils % 49.7 40.0 - 75.0 % Lymphocytes % 41.3 18.0 - 42.0 % Monocytes % 7.3 1.0 - 11.0 % Eosinophils % 0.6 0.0 - 6.0 % Basophils % 0.7 0.0 - 2.0 % Immature Granulocytes % 0.4 0.0 - 2.0 % Absolute Neutrophils 2.71 1.80 - 7.70 K/uL Absolute Lymphocytes 2.25 1.00 - 4.80 K/ul Absolute Monocytes 0.40 0.00 - 1.10 K/uL Absolute Eosinophils 0.03 0.00 - 0.70 K/uL Absolute Basophils 0.04 0.00 - 0.20 K/uL Absolute Immature Granulocytes 0.02 0.00 - 0.20 K/uL Assessment and Plan IMPRESSION: Principal Problem: Alcohol abuse Active Problems: Fibromyalgia Bipolar 1 disorder (HCC) Hereditary and idiopathic peripheral neuropathy Asthma with severity to be determined Attention deficit hyperactivity disorder (ADHD) S/P laparoscopic sleeve gastrectomy S/P gastric bypass Intestinal postoperative nonabsorption Elevated liver enzymes Chronic post-traumatic stress disorder (PTSD) Colitis, acute Transaminitis Resolved Problems: * No resolved hospital problems. * DIFFERENTIAL AND PLAN: 43-year-old with past medical history depression, bipolar, ADHD, PTSD, status post laparoscopic sleeve and gastric bypass, prior history of cocaine and marijuana abuse admitted for transaminitis likely related to alcohol abuse and possible alcohol withdrawal. Admit tele inpatient GI consult for transaminitis Check phosphatydilethanol level Check abdominal ultrasound with Valsalva for hernia with mesh Care management consult ciwa protocol Continue prior to admission Wellbutrin, guaifenesin, ppi, prazosin, p.r.n. propranolol, trazodone, ursodial, and Geodon Hold prior to admission clonazepam transaminitis - Severe Possible etoh w/d will result in a threat to life or bodily function if not treated PHARMACOLOGIC VTE PROPHYLAXIS: This patient does not have an active medication from one of the medication groupers. CODE STATUS: Full Code Advance Care Planning PATIENT CAPACITY FOR HEALTHCARE DECISION MAKING Ginger Okeefe demonstrates no obvious deficits and is currently their own healthcare decision maker. According to Ginger Okeefe, They have NOT completed a written document (such as a Living Will, Durable Healthcare Power of Bibliographic Services Specialist, combination form or advance care planning document such as a POLST or Statement of Treatment Preference) that indicates either their healthcare wishes and/or adesignated healthcare agent. Ginger Okeefe designates delilah torres, their significant other as their healthcare mill representative at this time, asserting that if they become unable to make their ownmedical decisions, this person knows their healthcare wishes and values best. EXPECTED DISCHARGE DATE: No information available documented in this encounter Procedure Notes * Mauricio Vitale DO - 01/28/2024 4:34 PM EDTAssociated Order(s): EKG REASON FOR STUDY: OTHER CONCLUSIONS: Normal sinus rhythm Low voltage QRS, consider pulmonary disease, pericardial effusion, or normal variant Septal infarct (cited on or before 10-Sep-2022) Abnormal ECG When compared with ECG of 10-Sep-2022 17:37, No significant change was found Ventricular Rate: 90 Atrial Rate: 90 NH Interval: 138 QRS Duration: 68 QT/QTc: 376/459 ms P-R-T [place]: 51 : 55 : 44 degrees documented in this encounter Consult Notes * Earline Mehta Natural Gas Inspector - 01/30/2024 8:37 AM EDTAssociated Order(s): CARE MANAGEMENT CONSULT IP; CARE MANAGEMENT CONSULT IP See ancillary CM note. * Rebeca Ross SANDRINE Johnson - 01/29/2024 11:09 AM EDTAssociated Order(s): GASTROENTEROLOGY CONSULT IP CONSULT - Gastroenterology [facility]-[address] [id number] Name: Ginger Okeefe Location: [facility] [id number]-[id number] Date: 01/29/2024 Time: 11:10 AM REQUESTING SERVICE: Dr. Trevino REASON FOR CONSULT: transaminitis HPI: Ginger Okeefe is a 43 year old female w a hx of PBC (seen most recently in hepatology clinic in [address] Madsen, prescribed ursodiol at that time, lost to f/u. )alcohol dependence, fibromyalgia, bipolar, substance abuse, asthma, ADHD, obesity S/P distant RYGB, S/P abd hernia repair w meshwho presented to the ED yesterday for abdominal pain. She describes to areas of pain a right upper quadrant pain that feels like a pressure or fullness sharp and is worse after eating. She also has chronic ongoing pain around the site of hernia repair and mesh. She admits drinking 6 beers/day and drank a 12 pack on 01/26 which was the time of her most recent alcohol intake. Pain began about a week ago. Yellow eyes and skin about 2 days prior to arrival. She denies N/V/D and has not had any black/red BMs. She is sleepy but awake and is oriented, hastremors and general fatigue/lethargy. She tells me she plans to stop drinking alcohol. On arrival CTAP w IV with a hepatomegaly and fatty liver no biliary ductal dilation or acute changes. LFTs are significantly elevated and AST>2x the level of the ALT. Bili was 5.4 on arrival and this morning is 4.8. Coags are normal and DF (using labs on arrival was low at 9.9 and using today's labs is 7.7. ETOH tox was (-) on arrival. She is anemia. Hb is 10.5 on arrival, 9.6 this morning. Most recent prior Hb was 14 in July. Most recent EGD was n 2021: small anastomotic ulcer Liver bx in 2021 consistent with PBC, mild steatosis (30%) and stage 1-2 fibrosis. Colonoscopy in 2019 was normal. HISTORY: Past Medical History: Past Medical History: Diagnosis Date ADHD (attention deficit hyperactivity disorder) Arthritis Asthma, allergic Asthma, severity to be determined Asthma w/o status Bipolar I disorder, most recent episode mixed, mild (HCC) Borderline personality disorder (HCC) Calculus of kidney 2002 L sided stone via ct Chronic post-traumatic stress disorder Depressive disorder, not elsewhere classified Dysphagia Fibromyalgia Generalized anxiety disorder GERD (gastroesophageal reflux disease) IBS (irritable bowel syndrome) INFORMATION distal esophagus Insomnia Kidney stone Myalgia and myositis OCD (obsessive compulsive disorder) Other eye problems influencing health status Peripheral neuropathy Primary biliary cholangitis (HCC) S/P gastric bypass Strep throat as a child Tobacco use disorder 1.5 ppd Past Surgical History: Past Surgical History: Procedure Laterality Date CALCAN FX W/O MAN 06/23/2010 avulsion fx distal calcaneus CARPAL TUNNEL SURGERY bilateral COLONOSCOPY, DIAGNOSTIC (RECTUM) N/A 05/24/2019 biopsies show hyperplastic polyps/Colonoscopy COLONOSCOPY, DIAGNOSTIC (RECTUM) N/A 05/24/2019 COLONOSCOPY FLEXIBLE PROXIMAL DIAGNOSTIC performed by Taj Bradford MD at ENDOSCOPY [facility] EGD, FLEXIBLE, DIAGNOSTIC 05/26/2012 mild nonspecific inflammation/UPPER GI ENDOSCOPY DIAGNOSTIC performed by Pooja Cummings DO at ENDOSCOPY [facility] EGD, FLEXIBLE, DIAGNOSTIC 05/11/2013 mild-mod inflammationUPPER GI ENDOSCOPY DIAGNOSTIC performed by Deonte Ferreira Jr., MD atENDOSCOPY [facility] EGD, FLEXIBLE, DIAGNOSTIC N/A 05/02/2015 ESOPHAGOGASTRODUODENOSCOPY (EGD), FLEXIBLE, TRANSORAL, DIAGNOSTIC performed by Sinai Cuevas OR [facility] EGD, FLEXIBLE, DIAGNOSTIC N/A 03/08/2016 ESOPHAGOGASTRODUODENOSCOPY (EGD), FLEXIBLE, TRANSORAL, DIAGNOSTIC performed by Chio Maurer MD [place] [facility] [place], FLEXIBLE, DIAGNOSTIC N/A 04/26/2016 ESOPHAGOGASTRODUODENOSCOPY (EGD), FLEXIBLE, TRANSORAL, DIAGNOSTIC performed by Shaq Saavedra MD [place] [facility] [place]GD, FLEXIBLE, DIAGNOSTIC N/A 01/28/2017 normal/ESOPHAGOGASTRODUODENOSCOPY (EGD), FLEXIBLE, TRANSORAL, DIAGNOSTIC performed by Vianca Quintanilla DO at ENDOSCOPY [facility] EGD, FLEXIBLE, DIAGNOSTIC N/A 01/06/2018 ESOPHAGOGASTRODUODENOSCOPY (EGD), FLEXIBLE, TRANSORAL, DIAGNOSTIC performed by Chris Barajas [facility] ENDOSCOPY [facility] EGD, FLEXIBLE, W/BIOPSY 07/20/2010 mild -> mod chronic inflammation EGD, W/ENDOSCOPIC US N/A 12/27/2021 biopsies show inflammation consistent with primary biliary cholangitis, mild fatty liver and focal fibrosis/ESOPHAGOGASTRODUODENOSCOPY (EGD), FLEXIBLE, TRANSORAL, ENDOSCOPIC ULTRASOUND performed by Trae Lewis MD at OR [facility] EMG 2 EXTREMITY 01/03/2010 peripheral neuropathy, no rad. or myopathy EMG, 2 EXTREMITIES 09/11/2009 +CTS FLUORO UPPER GI W AIR AND SMALL BOWEL 07/03/2010 small hiatal hernia and reflux FLUORO UPPER GI W KUB GERD- IBS INFORMATION reconstructive surgery - hernia INFORMATION ulnar nerve INFORMATION numerous procedure for kidney stones in the past LAPAROSCOPE PROCEDURE, LIVER N/A 05/02/2015 UNLISTED LAPAROSCOPIC PROCEDURE LIVER performed by Polo Zuluaga MD at OR [facility] LAPAROSCOPE PROCEDURE, LIVER N/A 04/26/2016 UNLISTED LAPAROSCOPIC PROCEDURE LIVER performed by Shaq Saavedra MD at [place] [facility] LAPAROSCOPIC GASTRIC BYPASS/LEONORA-EN-Y N/A 04/26/2016 LAPAROSCOPIC GASTRIC RESTRICTIVE BYPASS LEONORA EN Y performed by Shaq Saavedra MD at [place] [facility] METACARPAL FX W/FIXATION Right 09/04/2021 OPEN TREATMENT METACARPAL FRACTURE performed by Rip Brown DO at OR [facility] REMOVE GALLBLADDER post op hernia repair, mesh REMOVE TONSILS & ADENOIDS, AGE 12+ SLEEVE GASTRECTOMY, LAPROSCOPY N/A 05/02/2015 LAPAROSCOPY SLEEVE GASTRECTOMY performed by Polo Zuluaga MD at OR [facility] Social History: Social History Tobacco Use Smoking status: Every Day Current packs/day: 1.00 Average packs/day: 1 pack/day for 20.0 years (20.0 ttl pk-yrs) Types: Cigars, Cigarettes Smokeless tobacco: Never Tobacco comments: 01/28/24 currently little cigars-smokes 0.5 ppd Vaping Use Vaping status: Never Used Substance Use Topics Alcohol use: Yes Alcohol/week: 42.0 standard drinks of alcohol Types: 42 12 oz of beer per week Comment: daily; 6 pack a day Drug use: Yes Types: Marijuana Comment: medical marijuana-smokes; hx drug use - states used cocaine only once during period of suicidal ideation. Family History: Family History Problem Relation Name Age of Onset Mental Disorder Mother ADHD, mental illness Other (Cancer/Mental history) Mother - vaginal Other (Other) Mother Fibromyalgia Diabetes Father Stomach cancer Father Esophageal cancer Father Hypertension Father Cancer Sister Melanoma Asthma Sister Arthritis Sister Fibromyalgia Sister Seizures Sister Mental illness Sister Schizophrenia No Known Problems Brother Cancer Grandmother (Maternal) breast Cancer Grandfather (Maternal) stomach Stomach cancer Grandmother (Paternal) Colon cancer Uncle (Unspecified) Other (esophageal cancer) Uncle (Unspecified) esophageal cancer Allergies: Food (see comments), Midrin, Penicillin [penicillins], Sertraline hcl, Sodium hypochlorite, Latuda [lurasidone], Nicotine, Vicodin [hydrocodone- acetaminophen], Aspirin, Lunesta [eszopiclone], Percocet, Pp-cap (propoxyphene), Rofecoxib, Salicylates, Tegretol [carbamazepine], Tetracycline base, and Amoxicillin-pot clavulanate ROS: Constitutional: (+) weakness and (+) fatigue Eyes: (+) icterus ENT: (-) negative: no acute hearing loss, sinus, ear or throat problems Cardiovascular: (-) negative: no chest pain, dyspnea, palpitations, or syncope Pulmonary: (+) cough, (+) wheezing, and (+) with asthma Abdominal/GI: as per HPI, otherwise negative Musculoskeletal: (-) negative: no joint swelling or tenderness Endocrine: (-) negative: no weight change, heat or cold intolerance, polyuria Hematology/oncology: (-) negative: no night sweats, masses, or swollen nodes Skin: (+) jaundice and (-) persistent rash and (-) easy bruising Neurology: (+) tremor and (+) poor wake sleep cycle Female : (-) negative: no dysuria, pelvic pain, irregular menses, or vaginal discharge PHYSICAL EXAMINATION: Most Recent Vital Signs: BP: 109 mmHg/88 mmHg (01/29/24 1102) Pulse: 71 (01/29/24 1102) Resp: 20 (01/29/24 1102) Temp: 36.28 C (01/29/24 1102) Temp Summary: Temp Min: 35.7 C (96.3 F) Max: 36.6 C (97.9 F) SpO2: 96 % (01/29/24 1102) O2 flow rate: Supplemental O2 Delivery: Room Air, None (01/29/24 110) Vital Signs Last 24 Hours: Systolic BP: Most Recent Systolic BP Av.9 mmHg Min: 95 mmHg Max: 144 mmHg Temperature: Most Recent Temperature Av.3 C Min: 35.72 C Max: 36.61 C Pulse: Pulse Av.6 Min: 58 Max: 100 Respirations: Resp Av.8 Min: 18 Max: 22 SpO2: SpO2 Av.6 % Min: 95 % Max: 100 % Constitutional: ill apearing w jaundice, fatigue, underweight HEENT: normal: normocephalic, atraumatic; no masses, tenderness, or adenopathy Eyes: PERRLA and icterus Neck: supple, normal range of motion CV: Slightly tachycardic, no irregular beats, no murmurs Chest: normal respiratory effort, scattered wheezing throughout, few crackles at the bases Abdomen: Hypoactive bowel sounds throughout, soft, nondistended, palpable irregularity few small nodules felt just above the umbilicus consistent with history of mesh, enlarged tender liver edge is palpable at 2 finger widths below the right costal border Musculoskeletal: (-) no joint effusions or tenderness Extremities: no clubbing, cyanosis, or edema Rectal: Deferred Lymph Nodes: no adenopathy, no axillary adenopathy noted, no cervical adenopathy noted, no inguinaladenopathy noted Skin: warm and dry, no rashes Neuro: oriented to person, place, time, and affect is dull, somewhat slow word- finding otherwise neurologically normal, no asterixis Psych: nonsuicidal, judgement normal, memory normal, (+) blunt affect LABS: Labs reviewed. Latest Reference Range & Units 01/29/24 08:06 WBC 4.00 - 10.80 K/uL 4.05 RBC 3.85 - 5.15 M/uL 2.85 HGB 12.0 - 15.3 g/dL 9.6 (L) HCT 36.0 - 45.2 % 29.3 (L) MCV 81.5 - 97.5 fL 102.8 MCH 27.0 - 34.0 pg 33.7 MCHC 32.0 - 36.0 g/dL 32.8 RDW 11.5 - 15.5 % 22.3 PLT 140 - 400 K/uL 105 (L) MPV 6.6 - 11.1 fL 11.4 Latest Reference Range & Units 01/29/24 08:06 Sodium 135 - 146 mmol/L 132 (L) Potassium 3.5 - 5.1 mmol/L 4.4 Chloride 98 - 107 mmol/L 97 (L) CO2 22 - 32 mmol/L 24 BUN 6 - 20 mg/dL 7 Creatinine 0.5 - 1.0 mg/dL 0.7 Estimated Glomerular Filtration Rate >=60 mL/min >90 Anion Gap 7 - 15 mmol/L 11 Glucose 70 - 120 mg/dL 66 (L) Calcium 8.4 - 10.2 mg/dL 8.6 Magnesium 1.5 - 2.6 mg/dL 2.3 Protein 6.0 - 8.3 g/dL 5.8 (L) IMPRESSION: Ginger Okeefe is a(n) 43 year old female who presents with alcoholic hepatitis and PBC. She likely also has a component of HOLCOMB given hx of RYGB for obesity. RUQ pain is mostly likely secondary to alcoholic hepatitis. RECOMMENDATIONS/PLAN: DF is low, would DC trental. For hx of PCB, would restart ursodiol 300mg BID and f/u in OP hepatology clinic Agree w/appreciate primary hospitalist's management of alcohol withdraw. Alcohol cessation importance and strategies for success. Needs OP GI f/u form management of PBC. I have discussed the case with my attending, Dr Blanco. Associated attestation - Dominick Blanco MD - 01/29/2024 2:08 PM EDT I performed a history and physical examination of the patient, including specifically on physical exam - soft abomen. I have discussed the patient's management with SANDRINE Ayers. Please referto the nurse practioner's note for the documented findings and plan of care. - patient with history of PVC as well as alcoholism. No going through withdrawals without evidence of significant alcoholic hepatitis. No role for steroids and or Trental. Start ursodiol back. Will need outpatient Hepatology follow-up and strict alcohol cessation * Rosalie Hurt, PATRICIO - 01/29/2024 9:15 AM EDT CLINICAL NUTRITION CONSULT/PROGRESS NOTE [facility]-[address] [id number] Name: Ginger Okeefe Location: [facility] 3B-3018/W Date: 01/29/2024 Time: 9:15 AM How patient was identified (select 2): date and Name Discussed in interdisciplinary rounds: No Ginger Okeefe is a 43 year old female being seen for reduced dietary intake and significant unintentional weight loss Primary Diagnosis: Alcohol abuse Other pertinent information: Patient seen eating breakfast this AM. She was willing to talk, but was a bit lethargic, sometime taking a while to answer my questions. Patient reports she she has only been consuming about 1-2 meals a day, but eats small amounts of food, reports this is because she just hasn't been that hungry. RN reports pt is experiencing abdominal pain as well today. Patient tells me she has lost weight, per chart review, has lost about 11% x 6 months, and she hasn't been able to gain back. Patient agreeable to supplement shakes at meals and a referral to OP nutrition. Will monitor for increased PO intakes and tolerance during this admission. Patient does report she has a Hx of gastric bypass in 2014. NUTRITION ASSESSMENT: Past medical/surgical history and medications reviewed. Food/Nutrition-Related History Diet: Regular Previously followed diet: Regular Food Allergies/Intolerances: Hot/spicy peppers Adult Energy Intake: Less than 75% of estimated energy requirement for greater than 3 months (moderate, social/environmental). Oral Nutrition Supplement (ONS): None Pertinent medications/vitamins/minerals/supplements: Medications reviewed. No significant nutritionrelated medications noted. Pertinent Biochemical Data: Labs reviewed. There are no biochemical abnormalities requiring a change in nutrition plan of care at this time. Nutrition-Focused Physical Findings: Appearance: Thin Respiratory support: Supplemental O2 Delivery: Room Air, None Nasal/Oral: No issues identified Digestive: Abdominal pain/tenderness and Appetite fair Last Bowel Movement: 01/28/24 (per pt) (01/28/24 1900) Cognition: Lethargic Skin: Intact Enteral access: None Nutrition Focused Physical Exam: NFPE completed on 01/29/2024 Subcutaneous Fat Loss: Orbital fat pads: WNL Buccal fat: WNL Tricep: WNL Rib: Unable to assess Muscle Loss: Temples: Mild Clavicles: Moderate Shoulders: Moderate Scapula: Unable to assess Interosseous: Mild Quadriceps: Mild Calves: Mild Anthropometrics Measurements Height: 153.7 cm (5' 0.5") (01/28/241828) Admission weight: 53.1 kg Weight: 53.1 kg (117 lb) (01/29/240) BMI: 22.22 (01/28/241828) Usual Body Weight: 60 kg [place] weight: 59.8 kg [place] Weight Based on BMI: 24.9 Interpretation of Weight Change Prior to Admission: Greater than 10% weight loss in 6 months (Severe) Nutrition Prescription: Energy needs: 25-30 Kcal/kg Kcal/day: 8987-2828 Based on current weight Protein needs: 1.0-1.2 gm/kg Protein: 53-64 Based on current weight Fluid needs: 35 ml/kg Fluid: 1860 ml/day Based on current weight Malnutrition: Malnutrition Present: Yes (01/29/24 1105) Adult Malnutrition Classification: Moderate (01/29/24 1105) Malnutrition Characteristics: Muscle loss;Inadequate energy intake;Weight loss (01/29/24 1340) Malnutrition Care Plan: Patient meets ASPEN/AND criteria for moderate malnutrition. Plan to meet 75% of estimated calorie and 75% of estimated protein requirements via therapeutic diet and a nutrition intervention of oral nutrition supplements. If patient unable to achieve estimatedrequirements over next 5 days, will need to consider enteral nutrition. NUTRITION DIAGNOSIS: Malnutrition moderate related to social or environmental circumstances as evidenced by patient consuming less than 75% of estimated energy requirements x 3 months, greater than 10% weight loss x 6 month, and mild muscle loss. Goals: Patient to consume greater than 50 % of daily meals and 50% of daily supplements within 3 days. NUTRITION INTERVENTION/PLAN: Orders: Oral nutrition supplement added Supplement Shake (1/2 cup provides 200 calories, 6 grams protein, 34 grams carbohydrate) TID Clinical Nutrition Recommendations: Diet: Continue current nutrition plan NUTRITION MONITORING AND EVALUATION: Nursing documentation flowsheets for percent meal intake Tolerance of supplement per patient/nursing report Lab values warranting change with MNT Weight for trends Plan follow-up: Will follow and adjust nutrition plan of care as medical condition requires. Please contact for change(s) in patient condition requiring earlier intervention. Rosalie Hurt, MS, RDN, LDN Clinical Dietitian [facility] Available via [place] Text [phone] documented in this encounter Nursing Notes * Olivia Brenner RN - 01/29/2024 12:45 PM EDT 1200 Noon meds held due to patient's somnolence. Dr Trevino aware. [id number] This nurse spoke with Patient's significant other who states Patient does not take her psych meds at home. States she only takes trazadone and prazosin at home. States the other meds she only takes when she wants to and hasn't been taking them. Dr Belinda rosa. * Keturah Erickson RN - 01/28/2024 7:35 PM EDT Dual Licensed Skin Assessment completed by Alvaro Gallegos and Lubna Erickson. The patient is/has a N/A Skin Breakdown (includes non blanchable erythema): No * Ava Johnson RN - 01/28/2024 6:50 PM EDT VIRTUAL RN [facility]-[address] [id number] Name: Ginger Okeefe Location: [facility] [id number]-3018/W Date: 01/28/2024 Time: 6:50 PM I completed the Admission Navigator and Education. The patient was in the hospital. I was not in a hospital or clinic location. After connecting through [place], the patient was identified by name and date of and / or wristband checked. Patient (or authorized legal mill representative) was then i nformed that this was a Virtual Nurse visit and was being conducted confidentially over secure lines. I used a headset and other methods to ensure confidentiality for the patient. My office door was closed. No one else was in the room with me. Patient acknowledged consent and understanding of privacy and security of the Virtual Nurse visit. I presented the opportunity for the patient or authorized legal mill representative to ask any questions regarding the visit today. The patient or authorized legal mill representative agreed to participate. documented in this encounter ED Notes * Aamir Jain, - 01/28/2024 2:40 PM EDT HISTORY OF PRESENT ILLNESS Ginger Okeefe is a 43 year old female who presents to the ED for evaluation of Abdominal Pain. The patient was seen at 01/28/24 1255. 43-year-old female with a history of alcohol dependence, fibromyalgia, bipolar, substance abuse, asthma presenting to the emergency depart with abdominal pain. She has had about a month of abdominal pain but it worsened significantly last night. She points primarily to her right upper quadrant but it is all over her abdomen. She also reports shortness of breath. This never improved from a recent cold her and her fiance had together. Patient is started noticing yellowing of her eyes over the last few days as well as for weeks now she has noticed orange colored urine but noticed today it was malodorous and more yellow appearing. She reports diarrhea. She denies any fevers, chills, headaches, lightheadedness, sore throat. She has not having any chest pain. She does feel like she needs a breathing treatment. History provided by: patient ent consultant used: No Abdominal Pain Review of Systems Gastrointestinal: Positive for abdominal pain. The patient's allergies, past history, and medications were reviewed. PHYSICAL EXAM Initial Vitals (see all): BP 144/99 | Pulse 94 | Resp 22 | Temp 97.5 | O2 100 %, Room Air, None | Weight 53.52 kg | Height 162.6 cm | BMI 20.25 kg/m2 Initial Pain Assessment (see all): 10 (severe pain)/10 ([facility] Adult Scale 0-10) Physical Exam Vitals and nursing note reviewed. Constitutional: General: She is not in acute distress. Appearance: Normal appearance. She is ill-appearing. She is not diaphoretic. HENT: Head: Normocephalic and atraumatic. Nose: Nose normal. Mouth/Throat: Mouth: Mucous membranes are moist. Eyes: General: Scleral icterus present. Extraocular Movements: Extraocular movements intact. Pupils: Pupils are equal, round, and reactive to light. Cardiovascular: Rate and Rhythm: Normal rate and regular rhythm. Pulmonary: Effort: Pulmonary effort is normal. No respiratory distress. Breath sounds: Wheezing (Diffuse) present. No rales. Abdominal: General: Bowel sounds are normal. There is no distension. Palpations: Abdomen is soft. Tenderness: There is abdominal tenderness (diffusely very tender but even more so in the right upper quadrant). There is rebound. There is no guarding. Musculoskeletal: General: Normal range of motion. Cervical back: Normal range of motion. Skin: General: Skin is warm. Neurological: General: No focal deficit present. Mental Status: She is alert. Comments: Her arms do seem to have some slight tremors/shakiness Psychiatric: Mood and Affect: Mood is anxious. PROCEDURES AND TREATMENTS ED Orders | ED Results MEDICAL DECISION MAKING Nursing notes and vital signs were reviewed. ED Course as of 01/28/24 1725 FriJan 28, 2024 1524 Patient's liver enzymes are significantly elevated. The ALT and AST have risen quite a bit. AST much more elevated as well. Likely do the the alcohol. Bilirubin is 7.5. Direct is 5.4. CT scan ispending. [AT] 1612 Presenting with abdominal pain. Hx of alcoholism. Scleral icterus for last few days. Plan: - f/u CT scan. Admit for liver failure [RP] 1614 Patient's procalcitonin is 0.24. Troponin is 7. CT abdomen pelvis pending. I have signed this patient out to Dr. Guerrero pending the CT scan result and further care based on this. [AT] 1724 Paged hospitalist for admission [RP] ED Course User Index [AT] Aamir Jain DO [RP] Karishma Guerrero MD Scoring Tools Results: PERC Score: 0 Differential Diagnoses Based on my history, physical exam, and evaluation, the differential includes, but is not limited, to the following diagnoses: Liver cirrhosis, liver failure, alcoholic hepatitis, have be/C, cholangitis, liver abscess, pancreatitis, dehydration, gastroenteritis, colitis, mesenteric ischemia/AAA/dissection less likely, IBD, COPD exacerbation, pneumonia, ACS/PE unlikely. 43-year-old female presenting to the emergency department with severely worsening abdominal pain. Very tender on exam. She is also developed scleral icterus. She is a heavy drinker. Sixty 12 beers a day. She also is a smoker. Diffuse wheezing on exam. Recently got over a cold. She will be provided a DuoNeb. No chest pain but is feeling short of breath. PERC score is negative. Vitals overall reassuring. She will need a CT scan abdomen pelvis with contrast. She will be provided Dilaudid, Zofran. We did discuss options of pain medicine and she said the Dilaudid she has tolerated before. Urinalysis will be obtained. Labs will be sent including a metabolic panel, CBC, lactate, lipase, ammonia, PT INR, ethanol, hepatitis panel, liver panel, CRP, BNP. Due to her shakiness and severe history of alcohol abuse without drinking anything today I am going to place her on CIWA protocol. She does state that she has gone multiple days without drinking alcohol and never withdrawn. Amount and/or Complexity of Data Reviewed Labs: ordered. Radiology: ordered. Risk OTC drugs. Prescription drug management. Clinical Impressions None Disposition No disposition documented. Aamir Jain * Marilyn Dias RN - 01/28/2024 12:50 PM EDT Reports hx of liver issues. Reports she noticed she was getting jaundice a couple days ago. Reportsher urine has been orange for the last month. Abd pain and states she has hernia mesh "coming through." Drinks 6 beers/day. Has not had a drink today. LMP was in october, states her doctor believes sheis premenopausal documented in this encounter Miscellaneous Notes * Ancillary Progress Note - Earline Mehta Natural Gas Inspector - 01/30/2024 11:49 AM EDT CARE MANAGEMENT - ADULT DISCHARGE NOTE [facility] [address] Name: Ginger Okeefe Location: [facility] [id number] Date: 01/30/2024 Time: 1:49 PM The following coordination of care and discharge plan has been coordinated with the care team, patient, family and/or caregiver according to the patients needs and preferences. Discharge Discharge Second Notice Important Message from Medicare delivered: Not Applicable (IMM given 01/28/24) (01/30/24 1300) Was Caregiver/Family/Facility contacted regarding discharge: Yes (01/30/24 1300) Discharge Transportation: Family/Friends drive (01/30/24 1300) Date of scheduled discharge transportation: 01/30/24 (01/30/24 1300) Patient declined post-hospital transition of care recommendation: Drug and Alcohol Facility (01/30/24 1300) Final Discharge Plan (Complete only at time of Discharge): Home - Self Care (OP D/A counseling/ AA meeeting list/ Addiction medicine referral) (01/30/24 1300) Narrative: Pt discharging to home with family and family/friend providing transportation. Referral made to [facility] for D/A and mental health counseling. AA meeting list provided to pt for the [place] area. Pt voicing she would [facility] be [facility] made a referral to [facility] to follow pt's Revia. Pt also has a PCP follow-up appointment. * Pt Handout (on AVS) - Padmini Mehta RN - 01/30/2024 11:27 AM EDT Images from the original note were not included. [id number] Folic Acid Oral Tablet Brands: Folacin Uses This medicine is used for the following purposes: vitamin deficiency Instructions This medicine may be taken with or without food. Keep the medicine at room temperature. Avoid heat and direct light. It is important that you keep taking each dose of this medicine on time even if you are feeling well. If you forget to take a dose on time, take it as soon as you remember. If it is almost time for thenext dose, do not take the missed dose. Return to your normal schedule. Do not take 2 doses at one time. Tell your doctor and pharmacist about all your medicines. Include prescription and vacr-ipy-fmplkmjjeqipcrrv, vitamins, and herbal medicines. Speak with your doctor or pharmacist before starting any other vitamins. Cautions Do not start or stop any other medicines without first speaking to your doctor or pharmacist. Do not share this medicine with anyone who has not been prescribed this medicine. Side Effects This medicine usually has no side effects. A few people may have an allergic reaction to this medicine. Symptoms can include difficulty breathing, skin rash, itching, swelling, or severe dizziness. If you notice any of these symptoms, seek medical help quickly. Extra Please speak with your doctor, nurse, or pharmacist if you have any questions about this medicine. [email or web address].First Wave.Cardiocore/[email or web address]/fdbpem/117 IMPORTANT NOTE: This document tells you briefly how to take your medicine, but it does not tell youall there is to know about it. Your doctor or pharmacist may give you other documents about your medicine. Please talk to them if you have any questions. Always follow their advice. There is a more complete description of this medicine available in Micronesian. Scan this code on your smartphone or tablet or use the web address below. You can also ask your pharmacist for a printout. If you have any questions, please ask your pharmacist. The display and use of this drug information is subject to Terms of Use. Copyright(c) 2023 Revision3. [facility]. All rights reserved. This information is not intended as a substitute for professional medical care. Always follow your healthcare professional's instructions. * Pt Handout (on AVS) - Padmini Mehta RN - 01/30/2024 11:26 AM EDT Images from the original note were not included. [id number] Naltrexone Oral Tablet Brands: ReVia Uses This medicine is used for the following purposes: drug addiction alcohol dependence Instructions Swallow with a full glass (8 oz) of water unless your doctor gives you different instructions. You may take with food to prevent stomach upset. This medicine will work best if you take it at about the same time every day. Store at room temperature away from heat, light, and moisture. Do not keep in the bathroom. It is important that you keep taking each dose of this medicine on time even if you are feeling well. If you forget to take a dose on time, take it as soon as you remember. If it is almost time for thenext dose, do not take the missed dose. Return to your normal schedule. Do not take 2 doses at one time. Drug interactions can change how medicines work or increase risk for side effects. Tell your healthcare providers about all medicines taken. Include prescription and fagd-nvm-japqfil medicines, vitamins, and herbal medicines. Speak with your doctor or pharmacist before starting or stopping any medicine. If you need to stop this medicine, your doctor may wish to gradually reduce the dosage before stopping. Keep all appointments for medical exams and tests while on this medicine. Cautions Tell your doctor and pharmacist if you ever had an allergic reaction to a medicine. This medicine may cause you to experience some withdrawal symptoms from your pain medication. Tell your doctor right away if you have unusual sweating, chills, stomach pain, diarrhea, yawning or irritability. Some patients taking this medicine have experienced serious side effects. Please speak with your doctor to understand the risks and benefits associated with this medicine. This medicine is associated with a rare, but serious problem of the liver. Speak to your doctor about the early signs of liver problems and the benefits and risks of using this medicine. Do not use the medication any more than instructed. This medicine may cause dizziness or fainting. Do not stand or sit up quickly. If possible, avoid using with alcohol, marijuana, or other medicines that can cause dizziness or drowsiness. These include allergy/cold products, muscle relaxers, sleep aids, and pain relievers. Your ability to stay alert or to react quickly may be impaired by this medicine. Do not drive or operate machinery until you know how this medicine will affect you. Call the doctor if there are any signs of confusion or unusual changes in behavior. Tell the doctor or pharmacist if you are , planning to be , or . Contact your doctor immediately if you experience any swelling of your hands, face, lips, eyes, throat or tongue. Always carry an ID card or wear a medical alert bracelet indicating your medical condition. Do not share this medicine with anyone who has not been prescribed this medicine. Always refill this medicine before it runs out. Side Effects The following is a list of some common side effects from this medicine. Please speak with your doctor about what you should do if you experience these or other side effects. agitated feeling or trouble sleeping dizziness lack of energy and tiredness headaches nausea restlessness Call your doctor or get medical help right away if you notice any of these more serious side effects: abdominal cramps severe or persistent abdominal pain decreased awareness or responsiveness bone pain confusion diarrhea hallucinations (unusual thoughts, seeing or hearing things that are not real) pain in the joints signs of liver damage (such as yellowing of eye or skin, dark urine, or unusual tiredness) muscle aches, spasms or abnormal movements nervousness runny nose shortness of breath severe or persistent vomiting A few people may have an allergic reaction to this medicine. Symptoms can include difficulty breathing, skin rash, itching, swelling, or severe dizziness. If you notice any of these symptoms, seek medical help quickly. Extra Please speak with your doctor, nurse, or pharmacist if you have any questions about this medicine. https://api.First Wave.Cardiocore/[email or web address]/fdbpem/190 IMPORTANT NOTE: This document tells you briefly how to take your medicine, but it does not tell youall there is to know about it. Your doctor or pharmacist may give you other documents about your medicine. Please talk to them if you have any questions. Always follow their advice. There is a more complete description of this medicine available in Micronesian. Scan this code on your smartphone or tablet or use the web address below. You can also ask your pharmacist for a printout. If you have any questions, please ask your pharmacist. The display and use of this drug information is subject to Terms of Use. Copyright(c) 2023 Revision3. [facility]. All rights reserved. This information is not intended as a substitute for professional medical care. Always follow your healthcare professional's instructions. * Pt Handout (on AVS) - Padmini Mehta RN - 01/30/2024 11:26 AM EDT Images from the original note were not included. [id number] Vitamin B1 (thiamine) Oral Tablet Uses For vitamin replacement. Instructions This medicine may be taken with or without food. Store at room temperature away from heat, light, and moisture. Do not keep in the bathroom. Tell your doctor and pharmacist about all your medicines. Include prescription and bjgb-scc-hifhenmhzwrbbtys, vitamins, and herbal medicines. Speak with your doctor or pharmacist before starting any other vitamins. Cautions Tell your doctor and pharmacist if you ever had an allergic reaction to a medicine. Do not use the medication any more than instructed. Side Effects This medicine usually has no side effects. A few people may have an allergic reaction to this medicine. Symptoms can include difficulty breathing, skin rash, itching, swelling, or severe dizziness. If you notice any of these symptoms, seek medical help quickly. Extra Please speak with your doctor, nurse, or pharmacist if you have any questions about this medicine. https://api.First Wave.Cardiocore/[email or web address]/fdbpem/131 IMPORTANT NOTE: This document tells you briefly how to take your medicine, but it does not tell youall there is to know about it. Your doctor or pharmacist may give you other documents about your medicine. Please talk to them if you have any questions. Always follow their advice. There is a more complete description of this medicine available in Micronesian. Scan this code on your smartphone or tablet or use the web address below. You can also ask your pharmacist for a printout. If you have any questions, please ask your pharmacist. The display and use of this drug information is subject to Terms of Use. Copyright(c) 2023 Revision3. [facility]. All rights reserved. This information is not intended as a substitute for professional medical care. Always follow your healthcare professional's instructions. * Care Plan - Keturah Erickson RN - 01/30/2024 5:49 AM EDT Clinical Goal(s): Pts CIWA scores will be less than 15 this shift. (01/29/24 1900) Possible barriers to meeting goal(s)/advancing plan of care: Acuity of illness Stability of the patient: Moderately stable - low risk of patient condition declining or worsening Summary regarding today's goal(s): Met: Pts CIWA scores were less than 15 throughout the shift. Recommendations: Continue with plan of care * Care Plan - Olivia Brenner RN - 01/29/2024 5:56 PM EDT Clinical Goal(s): Patient will have CIWA less than 15 this shift. (01/29/24 0800) Possible barriers to meeting goal(s)/advancing plan of care: acuity of illness Stability of the patient: Moderately unstable - medium risk of patient condition declining or worsening Summary regarding today's goal(s): Met: Patient's CIWA was less than 15 this shift. Recommendations: monitor CIWA score, administer lorazepam as needed. * Ancillary Progress Note - Earline Mehta Natural Gas Inspector - 01/29/2024 11:05 AM EDT CARE MANAGEMENT - ADULT INITIAL SCREENING [facility]-[address] [address] Name: Ginger Okeefe Location: [facility] [id number] Date: 01/29/2024 Time: 4:08 PM Discussed patient with the interdisciplinary care team. This Relocation Commissioner performed a chart review and met with pt at bedside to complete admission screen and assessed needs for transition planning. The transitions rn care coordinator role and services were explained and emotional support was provided. Chief Complaint: Abdominal Pain Prior Living Arrangements What was your living situation prior to admission/observation?: Other (Comment) (with fiance) (01/29/24 1105) Living Quarters: House (01/29/24 110) Number of steps to enter living quarters:: "few" (01/29/24 110) Do you have serious difficulty walking or climbing stairs? (5 years old or older): Yes (01/28/24 3354) History of falling: No (01/29/24 0805) Prior Level of Functioning Describe the patient's ability prior to admission/observation to perform ADLs: Performs independently (01/29/24 110) Requires assistance with: Dressing;Toileting;Bathing (01/29/24 0942) Describe the patient's mobility status prior to admission: Patient ambulates independently (01/29/24 1105) Patient uses assistive device: No (01/29/241104) Caregiver Information Patient Contacts Name Relation Home Work Mobile LUDA KOVACS Friend [phone] Pt came to [facility] ED on 01/28/24 with c/o of abdominal pain. Pt was admitted for alcoholic hepatitis without ascites. Pt hs consults for CM and gastroenterology. Pt is insured by [facility] [employer]/ [facility] Medicaid. Pt lives with her finance in a 2 story home with a "few" steps to enter. Pt voicing that she provides her own transportation and that she does see a mental health therapist OP, but is unsure of her name. Pt denies using any substance, but alcohol. Pt voicing that she drinks a 6 pack of beer daily and she last drank yesterday. CM and pt discussed discharge planning and D/A IP rehab. Pt in agreement with IP D/A rehab and said "I always wanted to get clean." During CM's assessment CM had to say pt's name multiple times d/t pt falling asleep during assessment. CM will continue to monitor discharge plan and meet with pt when she is more awake about D/A IP facilities. Risk Stratification/Psychosocial/Care Gaps Risk Stratification Psycho Social / Medical Concerns Identified: Adjustment to illness/injury;Multiple Comorbidities;Substance Abuse;Behavioral Health Diagnosis (MH/MR) (01/29/241104) Accessed Neighborly to connect patients to social care resources: No (01/29/241104) OBRA or OPTIONS needed for placement: No (01/29/241104) Readmission Risk Score: 16.74 (01/29/24 1600) AM-PAC Score With Stairs : 19 (01/29/24 0800) Prior to Admission Services Services Prior to Admission HAT MAKER Services (Services received within the last 30 days with exception, Psych within last two years): Other - Comment (OP mental health therapist- pt unable to remember name) (01/29/241104) List All Provider/Service Name: - (01/29/241104) Agency contacted: No (01/29/241104) [place] Dept[place] of Aging (PDA) Waiver Program: N/A (01/29/241104) HAT MAKER Transportation (Services received within the last 30 days): Patient drives self (01/29/241104) Outpatient Relocation Commissioner: No care steam brush operator to display Patient/Family Expectations: IP D/A rehab For further screening information, please refer to the Care Management flow document. * Care Plan - Nixon Gallegos, RN - 01/29/2024 6:02 AM EDT Clinical Goal(s): Pt will have a CIWA score less than 15 this shift. (01/28/241919) Possible barriers to meeting goal(s)/advancing plan of care: Pt. Disease process Stability of the patient: Moderately stable - low risk of patient condition declining or worsening Summary regarding today's goal(s): Met: Pt. Highest CIWA this shift was 4 Recommendations: Keep monitoring w/ q4 CIWAs and medicate per mar * Pt Handout (on AVS) - Janette Foy RN - 01/28/2024 8:52 PM EDT [id number] Alcohol Abuse Alcoholic drinks harm you when you have too many of them. No set number of drinks means too much. Drinking that affects your life or your health is called alcohol abuse. Alcohol abuse can hurt your relationships with others. You may lose friends, a spouse, or even your job. You may be abusing alcohol if any of the following are true for you: Duties at home or with child care provider suffer because of drinking. Duties at work or in school suffer because of drinking. You have missed work or school because of drinking. You use alcohol while driving or using machinery. You have legal problems such as arrests because of drinking. You keep drinking even though it causes serious problems in your life. Health problems Alcohol abuse causes many health problems. Sometimes this can happen after only drinking a ?little." The effects depend on how much you drink at one time and how often you drink. The effects also depend on how long you drink. For example, months, years, or decades. Alcohol affects all parts of yourbody Brain Alcohol affects the central nervous system. It can damage parts of the brain that control your balance and gait, memory, thinking, and emotions. It can cause: Memory loss Blackouts Depression Agitation Sleep problems Seizures These changes may be manager intermediate (permanent). Heart and blood vessels Alcohol can damage heart muscle (cardiomyopathy). This can lead to: Trouble breathing Irregular heartbeat Atrial fibrillation Leg swelling Heart failure Alcohol also makes the blood vessels stiff. This causes high blood pressure. All of these problems raise your risk of having a heart attack or stroke. Liver Alcohol causes fat to build up in the liver. This affects how the liver works. Alcohol also raises the risk for hepatitis. It can cause: Belly (abdominal) pain Belly swelling Loss of appetite Yellowed eyes or skin (jaundice) Bleeding problems Cirrhosis This can make it harder for you to fight off infections. The liver changes keep it from removing toxins in your blood that can cause brain disease (encephalopathy). This condition cause: Confusion Changed level of consciousness Personality changes Memory loss Seizures, coma, and The liver changes can also cause the veins in your esophagus and stomach to become thin and swollenwith blood (varices). This can cause bleeding and vomiting of blood. Pancreas Alcohol can cause swelling (inflammation) of the pancreas (pancreatitis). This can cause belly pain, fever, and diabetes. Immune system Alcohol weakens your immune system. This makes it harder for you to fight infections and colds. It also makes it more likely for you to get pneumonia and tuberculosis. Cancer Alcohol raises the risk for several types of cancer. These include cancer of the mouth, esophagus, pharynx, larynx, liver, and breast. Sexual function Alcohol can lead to sexual problems. Home care These guidelines will help you deal with alcohol abuse: Admit you have a problem with alcohol. Ask for help from your healthcare provider. Also ask for help from trusted family members or close friends. Get help from people trained in dealing with alcohol abuse. This may be one-on-one counseling orgroup therapy. Or it may be an alcohol treatment program. Join a self-help group for alcohol abuse such as Alcoholics Anonymous. Stay away from people who abuse alcohol or tempt you to drink. Follow-up care Follow up with your healthcare provider, or as advised. Contact these groups to get help: Alcoholics Anonymous (AA) at www.aa.org. Or check the phone book for meetings near you. National Alcohol and Substance Abuse Information Center (NASAIC) at www.addictioncareResponsys.Cardiocoreor 258-782-4973 National [place] on Alcoholism and Drug Dependence (NCADD) at www.ncadd.org or 759-QOM-QRRL (530-232-8025) Call 911 Call 911 if any of these occur: Trouble breathing or slow, irregular breathing Chest pain Sudden weakness on one side of your body or sudden trouble speaking Heavy bleeding or vomiting blood Very drowsy or trouble awakening Fainting or loss of consciousness Rapid heart rate Seizure When to seek medical care Call your healthcare provider right away if any of these occur: Confusion Seeing, hearing, or feeling things that aren?t there (hallucinations) Pain in your upper belly that gets worse Vomiting that continues, vomiting with blood, or black or tarry stools Severe shakiness Last Reviewed Date: 08/11/202119991875-8919 [facility]. All rights reserved. This information is not intended as a substitute for professional medical care. Always follow your healthcare professional's instructions. * Medical Necessity - Barbie Card RN - 01/28/2024 5:49 PM EDT AdmissionCare Guideline: Substance-Related Disorders, Inpatient Based on the indications selected for the patient, the bed status of Inpatient was determined to beMET The following indications were selected as present at the time of evaluation of the patient: - Clinical Indications for Admission to Inpatient Care - Admission to Inpatient Level of Care for Substance-Related Disorder for Adult (ASAM Criteria, Fourth Edition, Level 4) is indicated due to ALL of the following: - Tremor - Other significant medical history (eg, severe cardiac disease) that is assessed to be at risk fordestabilization due to withdrawal - Patient is receiving continuing care (eg, transition of care from less intensive level of care). - Orcrhm-deb-vbzoo medical and nursing care to address symptoms and initiate intervention is required; specific need is identified. Additional Information: - CT abdomen/pelvis with IV contrast showed hepatomegaly and diffuse fatty infiltration of the liver which is new since her previous study. Also noted to have a nonobstructing0.2 cm right renal calculus. Small amount of free fluid in the right pericolic gutter and pelvis. Mild diffuse anasarca. AdmissionCare documentation entered by: Barbie Card [facility] Xipin, 28th edition, Copyright 2023 [facility] [employer] All Rights Reserved. [id number]:[id number]:00 Solely for purpose of utilization review and payment; not a diagnostic tool Associated attestation - Kamron Merritt MD - 01/28/2024 6:08 PM EDT Kamron Merritt MD * ED Conference Center Coordinator Note - Marilyn Dias RN - 01/28/2024 4:27 PM EDT Pt at CT. Will obtain CIWA assessment when pt returns * ED Conference Center Coordinator Note - Danielle Parson RN - 01/28/2024 2:17 PM EDT 1254 assumed care of pt. 1344 pt resting in bed with fiance at bedside. Resp unlabored. Pt shaky and anxious. IV started andblood obtained. Pt reports her hernia repair mesh is coming through her abd. This has been an ongoing problem but just in the last week started bothering her causing pain. Pt reports abd pain/n/d andjaundice and orange urine. Pt drinks approx 6 beers/day. Yest drank a 12 pack of beer. Denies drug use. Smokes cigarettes. Aware of plan of care. Call kahn in reach. Will monitor. 1415 pt resting in bed. Resp unlabored. Medicated per oct. Call kahn at bedside. Will monitor. Fiance with pt. Aware of plan of care. 1535 based off of CIWA-AR assessment no ativan given at this time. Pt resting quietly in bed. Fiance at bedside. Resp unlabored. Aware of plan of care. Call kahn at bedside. Will monitor. 1549 pt reports pain /. medicated per oct. Pt resting quietly in bed. Resp unlabored. No apparent distress. Fiance at bedside. Will monitor. Call kahn at bedside. 181 admitting provider in with pt. CIWA-AR as documented and pt medicated as ordered. Pt aware of plan of care. Will monitor. Call kahn at bedside. 182 report called to 3B and given to nurse. 1822 pt taken to 3B by ran Barba. documented in this encounter Plan of Treatment Pending Results Name Type Priority Associated Diagnoses Date /Time PHOSPHATIDYLETHANOL, BLOOD Lab Add-on 01/28/2024 5:06 PM EDT THC METABOLITE, URINE CONFIRMATION Lab Routine 01/28/2024 6:21 PM EDT Scheduled Orders Name Type Priority Associated Diagnoses Orde r Schedule PHOSPHATIDYLETHANOL, BLOOD Lab Add-on One Time for 1 Occurrences starting 01/28/2024 until 01/28/2024 THC METABOLITE, URINE CONFIRMATION Lab Routine One Time for 1 Occurrences starting 01/28/2024 until 01/28/2024 CBC WITH WBC DIFFERENTIAL Lab Routine Alcoholic hepatitis without ascites Expected: 02/06/2024, Expires: 01/29/2025 COMPREHENSIVE METABOLIC PANEL Lab Routine Alcoholic hepatitis without ascites Expected: 02/06/2024, Expires: 01/29/2025 Scheduled Procedures Name Priority Associated Diagnoses Date/Ti [...] this encounter Medical Devices Implanted Type Area Cooker Mechanic Device Identifier Shelf Expiration Date Model / Serial / Lot Sandi Hand Plating Variax 2 1.7mm S Locking Plates Straight Implanted:Qty: 1 on 09/04/2021 by Rip Brown, DO at OR [facility] Right: Hand SANDI : TRAUMA [id number] / / Screw Nlk V2 T5 1.7mm L7mm - [id number] Implanted:Qty: 2 on 09/04/2021 by Rip Brown, DO at OR [facility] Right: Hand SANDI : TRAUMA [id number] / / Screw Nlk V2 T5 1.7mm L8mm - [id number] Implanted:Qty: 3 on 09/04/2021 by Rip Brown, DO at OR [facility] Right: Hand SANDI : TRAUMA [id number] / / Screw Nlk V2 T5 1.7mm L10mm - [id number] Implanted:Qty: 2 on 09/04/2021 by Rip Brown, DO at OR [facility] Right: Hand SANDI : TRAUMA [id number] / / documented as of this encounter Procedures Procedure Name Priority Date/Time Associated Diagnosis Comments HEPATIC FUNCTION PANEL Routine 01/30/2024 5:46 AM EDT BASIC METABOLIC PANEL Routine 01/30/2024 5:46 AM EDT CBC Routine 01/30/2024 5:46 AM EDT MAGNESIUM Routine 01/30/2024 5:46 AM EDT GLUCOSE METER, POINT OF CARE ELENA 01/29/2024 1:38 PM EDT GLUCOSE METER, POINT OF CARE ELENA 01/29/2024 9:10 AM EDT HEPATIC FUNCTION PANEL Routine 01/29/2024 8:06 AM EDT BASIC METABOLIC PANEL Routine 01/29/2024 8:06 AM EDT CBC Routine 01/29/2024 8:06 AM EDT MAGNESIUM Routine 01/29/2024 8:06 AM EDT US ABDOMEN LIMITED Routine 01/28/2024 8: 26 PM EDT Umbilical hernia without obstruction or gangrene Other specified postprocedural states TOXICOLOGY, URINESCREEN W/ CONFIRMATION Routine 01/28/2024 6:21 PM EDT DIFFERENTIAL, AUTOMATED STAT 01/28/2024 5:06 PM EDT CBC STAT 01/28/2024 5:06 PM EDT LACTATE STAT 01/28/2024 5:06 PM EDT CBC STAT 01/28/2024 5:[address] ABD/PELVIS W IV CONTRAST - WO ORAL CONTRAST STAT 01/28/2024 4:59 PM EDT Fatty (change of) liver, not elsewhere classified Calculus of kidney Hepatomegaly, not elsewhere classified Other ascites Abdominal tenderness, unspecified site HC ECG TRACING ONLY STAT 01/28/2024 4 :34 PM EDT SOB (shortness of breath) LACTATE WITH REFLEX IF ABNORMAL STAT 01/28/2024 1:38 PM EDT EXTRA LAVENDER TOP Routine 01/28/2024 1: 38 PM EDT EXTRA LIGHT BLUE TOP Routine 01/28/2024 1:38 PM EDT EXTRA TUBES Routine 01/28/2024 1:38 PM EDT TROPONIN T, HIGH SENSITIVITY Routine 01/28/2024 1:38 PM EDT PROCALCITONIN Routine 01/28/2024 1:38 PM EDT CRP (INFLAMMATORY MARKER) STAT 01/28/2024 1:38 PM EDT BNP (NT-PROBNP) STAT 01/28/2024 1:38 PM EDT BETA-HCG, QUANTITATIVE STAT 01/28/2024 1:38 PM EDT ACUTE HEPATITIS PANEL STAT 01/28/2024 1:38 PM EDT HEPATIC FUNCTION PANEL STAT 01/28/2024 1:38 PM EDT BASIC METABOLIC PANEL Routine 01/28/2024 1:38 PM EDT PT INR STAT 01/28/2024 1:38 PM EDT LIPASE STAT 01/28/2024 1:38 PM EDT ETHANOL, MEDICAL STAT 01/28/2024 1:38 PM EDT APTT STAT 01/28/2024 1:38 PM EDT AMMONIA Routine 01/28/2024 1:38 PM EDT XR CHEST 1 VIEW STAT 01/28/2024 1:28 PM EDT Upper abdominal pain, unspecified SOB (shortness of breath) Serum total bilirubin elevated documented in this encounter Results * (ABNORMAL) CBC (01/30/2024 5:46 AM EDT) WBC 4.80 4.00 - 10.80 K/uL 01/30/2024 6:12 AM EDT LABORATORY [facility] RBC 2.84 3.85 - 5.15 M/uL 01/30/2024 6:12 AM EDT LAB[facility]ATORY [facility] HGB 10.0(L) 12.0 - 15.3 g/dL 01/30/2024 6:12 AM EDT LAB[facility]ATORY [facility] HCT 29.8(L) 36.0 - 45.2 % 01/30/2024 6:12 AM EDT LAB[facility]ATORY [facility] MCV 104.9 81.5 - 97.5 fL 01/30/2024 6:12 AM EDT LABORATORY [facility] MCH 35.2 27.0 - 34.0 pg 01/30/2024 6:12 AM EDT LABORATORY [facility] MCHC 33.6 32.0 - 36.0 g/dL 01/30/2024 6:12 AM EDT LABORATORY [facility] RDW 21.6 11.5 - 15.5 % 01/30/2024 6:12 AM EDT LABORATORY GL PLT 105(L) 140 - 400 K/uL 01/30/2024 6:12 AM EDT LABORATORY GL MPV 11.8 6.6 - 11.1 fL 01/30/2024 6:12 AM EDT LABORATORY GL nRBCs 0 <=0 /100 WBCs 01/30/2024 6:12 AM EDT LABORATORY GL Blood Venous blood specimen / Unknown Venipuncture / Unknown 01/30/2024 5:46 AM EDT 01/30/2024 6:04 AM EDT Dustin [employer] LAB BLOOD ORDERAB LES LABORATORY [address] [address] * (ABNORMAL) HEPATIC FUNCTION PANEL (01/30/2024 5:46 AM EDT) Albumin 2.4(L) 3.8 - 5.0 g/dL 01/30/2024 6:25 AM EDT LABORATORY GL AST 258(H) 10 - 35 U/L 01/30/2024 6:25 AM EDT LABORATORY [facility] Alkaline Phosphatase 629(H) 35 - 130 U/L 01/30/2024 6:25 AM EDT LABORATORY GL ALT 142(H) 10 - 35 U/L 01/30/2024 6:25 AM EDT LABORATORY GL Bilirubin, Total 7.6(H) <=1.2 mg/dL 01/30/2024 6:25 AM EDT LABORATORY [facility] Bilirubin, Direct 6.1(H) 0.0 - 0.3 mg/dL 01/30/2024 6:25 AM EDT LABORATORY [facility] Protein 5.9(L) 6.0 - 8.3 g/dL 01/30/2024 6:25 AM EDT LABORATORY GL Blood Venous blood specimen / Unknown Venipuncture / Unknown 01/30/2024 5:46 AM EDT 01/30/2024 6:04 AM EDT [employer] DO LAB BLOOD ORDERAB LES Performing Organization Address City/[facility]/ZIP Co de Phone Number LABORATORY GL [address] [place] [address] * MAGNESIUM (01/30/2024 5:46 AM EDT) Magnesium 2.2 1.5 - 2.6 mg/dL 01/30/2024 6:25 AM EDT LABORATORY GL Blood Venous blood specimen / Unknown Venipuncture / Unknown 01/30/2024 5:46 AM EDT 01/30/2024 6:04 AM EDT Dustin Trevino DO LAB BLOOD ORDERAB LES Performing Organization Address [facility] Co de Phone Number LABORATORY [address] [phone] * BASIC METABOLIC PANEL (01/30/2024 5:46 AM EDT) BUN 7 6 - 20 mg/dL 01/30/2024 6:25 AM EDT LABORATORY GL Creatinine 0.6 0.5 - 1.0 mg/dL 01/30/2024 6:25 AM EDT LABORATORY GL Estimated Glomerular Filtration Rate >90 >=60 mL/min 01/30/2024 6:25 AM EDT LABORATORY [facility] Comment:eGFR is calculated b ased on the CKD-EPI 2020 equation Sodium 135 135 - 146 mmol/L 01/30/2024 6:25 AM EDT LABORATORY [facility] Potassium 4.2 3.5 - 5.1 mmol/L 01/30/2024 6:25 AM EDT LABORATORY [facility] Chloride 99 98 - 107 mmol/L 01/30/2024 6:25 AM EDT LABORATORY [facility] CO2 24 22 - 32 mmol/L 01/30/2024 6:25 AM EDT LABORATORY [facility] Anion Gap 12 7 - 15 mmol/L 01/30/2024 6:25 AM EDT LABORATORY [facility] Glucose 90 70 - 120 mg/dL 01/30/2024 6:25 AM EDT LABORATORY [facility] Calcium 8.8 8.4 - 10.2 mg/dL 01/30/2024 6:25 AM EDT LABORATORY [facility] Blood Venous blood specimen / Unknown Venipuncture / Unknown 01/30/2024 5:46 AM EDT 01/30/2024 6:04 AM EDT Dustin [facility] LAB BLOOD ORDERAB LES Performing Organization Address City/[facility]/ZIP Co de Phone Number LABORATORY [facility] [address] [place] [address] * GLUCOSE METER, POINT OF CARE (01/29/2024 1:38 PM EDT) Glucose Meter 102 70 - 120 mg/dL 01/29/2024 1:43 PM EDT [facility] Blood Whole blood specimen / Unknown 01/29/2024 1:38 PM EDT 01/29/2024 1:43 PM EDT [facility] POINT OF CARE TEST DOCKED DEVICE UNSOLICITED RESULTS Performing Organization Address [facility] Co de Phone Number [facility] [address] [place] [phone] * GLUCOSE METER, POINT OF CARE (01/29/2024 9:10 AM EDT) Glucose Meter 92 70 - 120 mg/dL 01/29/2024 9:14 AM EDT [facility] Blood Whole blood specimen / Unknown 01/29/2024 9:10 AM EDT 01/29/2024 9:14 AM EDT [facility] LAB POINT OF CARE TEST DOCKED DEVICE UNSOLICITED RESULTS Performing Organization Address City/[facility] Co de Phone Number [facility] [address] [place] [phone] * (ABNORMAL) CBC (01/29/2024 8:06 AM EDT) WBC 4.05 4.00 - 10.80 K/uL 01/29/2024 8:39 AM EDT LABORATORY [facility] RBC 2.85 3.85 - 5.15 M/uL 01/29/2024 8:39 AM EDT LABORATORY [facility] HGB 9.6(L) 12.0 - 15.3 g/dL 01/29/2024 8:39 AM EDT LABORATORY [facility] HCT 29.3(L) 36.0 - 45.2 % 01/29/2024 8:39 AM EDT LABORATORY [facility] MCV 102.8 81.5 - 97.5 fL 01/29/2024 8:39 AM EDT LABORATORY [facility] MCH 33.7 27.0 - 34.0 pg 01/29/2024 8:39 AM EDT LABORATORY GL MCHC 32.8 32.0 - 36.0 g/dL 01/29/2024 8:39 AM EDT LABORATORY GL RDW 22.3 11.5 - 15.5 % 01/29/2024 8:39 AM EDT LABORATORY GL PLT 105(L) 140 - 400 K/uL 01/29/2024 8:39 AM EDT LABORATORY [facility] Comment: Results rechecked. MPV 11.4 6.6 - 11.1 fL 01/29/2024 8:39 AM EDT LABORATORY GL nRBCs 0 <=0 /100 WBCs 01/29/2024 8:39 AM EDT LABORATORY GL Blood Venous blood specimen / Unknown Venipuncture / Unknown 01/29/2024 8:06 AM EDT 01/29/2024 8:26 AM EDT Dustin Trevino DO LAB BLOOD ORDERAB LES Performing Organization Address City/State/[facility] Co de Phone Number LABORATORY [address] [address] * MAGNESIUM (01/29/2024 8:06 AM EDT) Pathologist [facility] Magnesium 2.3 1.5 - 2.6 mg/dL 01/29/2024 8:47 AM EDT LABORATORY [facility] Blood Venous blood specimen / Unknown Venipuncture / Unknown 01/29/2024 8:06 AM EDT 01/29/2024 8:26 AM EDT Dustin Velazquez Belinda DO LAB BLOOD ORDERAB LES Performing Organization Address [facility]/ZIP Co de Phone Number LABORATORY GL [address] [place] [address] * (ABNORMAL) HEPATIC FUNCTION PANEL (01/29/2024 8:06 AM EDT) Albumin 2.5(L) 3.8 - 5.0 g/dL 01/29/2024 8:47 AM EDT LABORATORY [facility] AST 327(H) 10 - 35 U/L 01/29/2024 8:47 AM EDT LABORATORY [facility] Alkaline Phosphatase 638(H) 35 - 130 U/L 01/29/2024 8:47 AM EDT LABORATORY [facility] ALT 170(H) 10 - 35 U/L 01/29/2024 8:47 AM EDT LAB[facility]ATORY [facility] Bilirubin, Total 6.1(H) <=1.2 mg/dL 01/29/2024 8:47 AM EDT LABORATORY [facility] Bilirubin, Direct 4.8(H) 0.0 - 0.3 mg/dL 01/29/2024 8:47 AM EDT LABORATORY [facility] Protein 5.8(L) 6.0 - 8.3 g/dL 01/29/2024 8:47 AM EDT LABORATORY [facility] Blood Venous blood specimen / Unknown Venipuncture / Unknown 01/29/2024 8:06 AM EDT 01/29/2024 8:26 AM EDT Dustin Velazquez Belinda DO LAB BLOOD ORDERAB LES Performing Organization Address [facility]/ZIP Co de Phone Number LABORATORY GL [address] [place] [address] * (ABNORMAL) BASIC METABOLIC PANEL (01/29/2024 8:06 AM EDT) BUN 7 6 - 20 mg/dL 01/29/2024 8:47 AM EDT LABORATORY [facility] Creatinine 0.7 0.5 - 1.0 mg/dL 01/29/2024 8:47 AM EDT LABORATORY [facility] Estimated Glomerular Filtration Rate >90 >=60 mL/min 01/29/2024 8:47 AM EDT LABORATORY [facility] Comment:eGFR is calculated b ased on the CKD-EPI 2020 equation Sodium 132(L) 135 - 146 mmol/L 01/29/2024 8:47 AM EDT LABORATORY [facility] Potassium 4.4 3.5 - 5.1 mmol/L 01/29/2024 8:47 AM EDT LABORATORY [facility] Chloride 97(L) 98 - 107 mmol/L 01/29/2024 8:47 AM EDT LABORATORY [facility] CO2 24 22 - 32 mmol/L 01/29/2024 8:47 AM EDT LABORATORY [facility] Anion Gap 11 7 - 15 mmol/L 01/29/2024 8:47 AM EDT LABORATORY [facility] Glucose 66(L) 70 - 120 mg/dL 01/29/2024 8:47 AM EDT LABORATORY [facility] Calcium 8.6 8.4 - 10.2 mg/dL 01/29/2024 8:47 AM EDT LABORATORY [facility] Blood Venous blood specimen / Unknown Venipuncture / Unknown 01/29/2024 8:06 AM EDT 01/29/2024 8:26 AM EDT Dustin Trevino DO LAB BLOOD ORDERAB LES LABORATORY [facility] [address] [place] [address] * US ABDOMEN LIMITED (01/28/2024 8:26 PM EDT) Anatomical Region Laterality Modality Abdomen, Body Ultrasound 01/28/2024 7:57 PM EDT Impressions 01/28/2024 10:07 PM EDT IMPRESSION: 1. Ill-defined avascular heterogeneously echogenic soft tissue nodule at the site of palpable abnormality in the midline supraumbilical anterior abdominal wall suggestive of granulation/scar tissue. 2. No evidence of recurrent/residual hernia. THIS DOCUMENT HAS BEEN ELECTRONICALLY SIGNED BY IDLLAN ROJAS MD Narrative 01/28/2024 10:07 PM EDT PROCEDURE INFORMATION: Exam: US Abdomen; Limited Exam date and time: 01/28/2024 7:57 PM Age: 43 years old Clinical indication: Mass, lump, or swelling; Generalized; Abdominal pain; Localized; Other: Ml abd; Prior surgery; Surgery date: 6+ months; Surgery type: Hernia repair; Additional info: Ruq, pain, ? mesh with hernia TECHNIQUE: Imaging protocol: Real time ultrasound of the abdomen with image documentation. Limited exam focused on the region of clinical interest. COMPARISON: No relevant prior studies available. FINDINGS: Soft tissues: High resolution sonography of the soft tissues of the midline supraumbilical anterior abdominal wall demonstrates ill-defined relatively avascular heterogeneously echogenic soft tissue nodule measuring 1.2 x 0.5 x 1.0 cm with focal areas of shadowing at the site of palpable lump. No other cystic/solid mass or fluid collection at the site of clinical interest. Procedure Note Dillan Rojas MD - 01/28/2024 PROCEDURE INFORMATION: Exam: US Abdomen; Limited Exam date and time: 01/28/2024 7:57 PM Age: 43 years old Clinical indication: Mass, lump, or swelling; Generalized; Abdominal pain; Localized; Other: Ml abd; Prior surgery; Surgery date: 6+ months; Surgerytype: Hernia repair; Additional info: Ruq, pain, ? mesh with hernia TECHNIQUE: Imaging protocol: Real time ultrasound of the abdomen with imagedocumentation. Limited exam focused on the region of clinical interest. COMPARISON: No relevant prior studies available. FINDINGS: Soft tissues: High resolution sonography of the soft tissues of themidline supraumbilical anterior abdominal wall demonstrates ill-defined relatively avascular heterogeneously echogenic soft tissue nodule measuring 1.2 x 0.5x 1.0 cm with focal areas of shadowing at the site of palpable lump. Noother cystic/solid mass or fluid collection at the site of clinical interest. IMPRESSION IMPRESSION: 1. Ill-defined avascular heterogeneously echogenic soft tissue nodule atthe site of palpable abnormality in the midline supraumbilical anteriorabdominal wall suggestive of granulation/scar tissue. 2. No evidence of recurrent/residual hernia. THIS DOCUMENT HAS BEEN ELECTRONICALLY SIGNED BY DILLAN ROJAS MD Kamron Merritt MD RAD ULTRASOUN D * (ABNORMAL) TOXICOLOGY, URINESCREEN W/ CONFIRMATION (01/28/2024 6:21 PM EDT) Pathologist [facility] Amphetamines Screen, U Negative Negative 01/28/2024 7:08 PM EDT LABORATORY [facility] Benzodiazepines Screen, U Negative Negative 01/28/2024 7:08 PM EDT LABORATORY [facility] Cannabinoids Screen, U Positive(A) Negative 01/28/2024 7:08 PM EDT LABORATORY [facility] Cocaine Metabolite Screen, U Negative Negative 01/28/2024 7:08 PM EDT LABORATORY GL Fentanyl Screen, U Negative Negative 2023 7:08 PM EDT LABORATORY GL Hydrocodone Screen, U Negative Negative 01/28/2024 7:08 PM EDT LABORATORY [facility] Methadone Metabolite Screen, U Negative Negative 01/28/2024 7:08 PM EDT LABORATORY [facility] Morphine/Codeine Screen, U Negative Negative 01/28/2024 7:08 PM EDT LABORATORY [facility] Oxycodone Screen, U Negative Negative 01/28/2024 7:08 PM EDT LABORATORY [facility] Urine Urine specimen obtained by clean catch procedure / Unknown Non-blood Collection / Unknown 01/28/2024 6:21 PM EDT 01/28/2024 6:24 PM EDT Narrative LABORATORY [facility] - 01/28/2024 7:08 PM EDT Cutoff Concentrations: Drug Level Amphetamines 500 ng/mL Benzodiazepines 100 ng/mL Cannabinoids 50 ng/mL Cocaine Metabolite 150 ng/mL Fentanyl 1 ng/mL Hydrocodone / Hydromorphone 300 ng/mL Methadone Metabolite 100 ng/mL Morphine / Codeine 300 ng/mL Oxycodone / Oxymorphone 100 ng/mL Screening results are presumptive and can only be used for medical purposes. Positive screening results are reflexed to confirmatory testing. Kamron Merritt MD LAB URINE ORD ERABLES LABORATORY [address] [address] * DIFFERENTIAL, AUTOMATED (01/28/2024 5:06 PM EDT) WBC 5.45 4.00 - 10.80 K/uL 01/28/2024 5:28 PM EDT LABORATORY [facility] Neutrophils % 49.7 40.0 - 75.0 % 01/28/2024 5:28 PM EDT LABORATORY [facility] Lymphocytes % 41.3 18.0 - 42.0 % 01/28/2024 5:28 PM EDT LABORATORY GL Monocytes % 7.3 1.0 - 11.0 % 01/28/2024 5:28 PM EDT LABORATORY [facility] Eosinophils % 0.6 0.0 - 6.0 % 01/28/2024 5:28 PM EDT LABORATORY GL Basophils % 0.7 0.0 - 2.0 % 01/28/2024 5:28 PM EDT LABORATORY [facility] Immature Granulocytes % 0.4 0.0 - 2.0 % 01/28/2024 5:28 PM EDT LABORATORY [facility] Absolute Neutrophils 2.71 1.80 - 7.70 K/uL 01/28/2024 5:28 PM EDT LABORATORY [facility] Absolute Lymphocytes 2.25 1.00 - 4.80 K/ul 01/28/2024 5:28 PM EDT LABORATORY [facility] Absolute Monocytes 0.40 0.00 - 1.10 K/uL 01/28/2024 5:28 PM EDT LABORATORY [facility] Absolute Eosinophils 0.03 0.00 - 0.70 K/uL 01/28/2024 5:28 PM EDT LABORATORY [facility] Absolute Basophils 0.04 0.00 - 0.20 K/uL 01/28/2024 5:28 PM EDT LABORATORY GL Absolute Immature Granulocytes 0.02 0.00 - 0.20 K/uL 01/28/2024 5:28 PM EDT LABORATORY [facility] Blood Venous blood specimen / Unknown Venipuncture / Unknown 01/28/2024 5:06 PM EDT 01/28/2024 5:10 PM EDT Karishma Guerrero MD LAB BLOOD OR DERABLES LABORATORY [facility] [address] [place] [address] * (ABNORMAL) CBC (01/28/2024 5:06 PM EDT) WBC 5.45 4.00 - 10.80 K/uL 01/28/2024 5:27 PM EDT LABORATORY GL RBC 3.05 3.85 - 5.15 M/uL 01/28/2024 5:27 PM EDT LABORATORY GL HGB 10.5(L) 12.0 - 15.3 g/dL 01/28/2024 5:27 PM EDT LABORATORY [facility] HCT 30.8(L) 36.0 - 45.2 % 01/28/2024 5:27 PM EDT LABORATORY GL MCV 101.0 81.5 - 97.5 fL 01/28/2024 5:27 PM EDT LABORATORY GL MCH 34.4 27.0 - 34.0 pg 01/28/2024 5:27 PM EDT LABORATORY GL MCHC 34.1 32.0 - 36.0 g/dL 01/28/2024 5:27 PM EDT LABORATORY [facility] RDW 22.1 11.5 - 15.5 % 01/28/2024 5:27 PM EDT LABORATORY [facility] PLT 117(L) 140 - 400 K/uL 01/28/2024 5:27 PM EDT LABORATORY [facility] MPV 11.2 6.6 - 11.1 fL 01/28/2024 5:27 PM EDT LABORATORY [facility] nRBCs 0 <=0 /100 WBCs 01/28/2024 5:27 PM EDT LABORATORY [facility] Blood Venous blood specimen / Unknown Venipuncture / Unknown 01/28/2024 5:06 PM EDT 01/28/2024 5:10 PM EDT Karishma Guerrero MD LAB BLOOD OR DERABLES LABORATORY [address] [address] * LACTATE (01/28/2024 5:06 PM EDT) Lactate 1.2 0.4 - 2.0 mmol/L 01/28/2024 5:28 PM EDT LABORATORY [facility] Blood Venous blood specimen / Unknown Venipuncture / Unknown 01/28/2024 5:06 PM EDT 01/28/2024 5:10 PM EDT Aamir Jain DO LAB BLOOD ORDERABLE S LABORATORY [address] [place] [address] * CT ABD/PELVIS W IV CONTRAST - WO ORAL CONTRAST (01/28/2024 4:59 PM EDT) Anatomical Region Laterality Modality Body, Abdomen, Pelvis Computed T omography 01/28/2024 4:24 PM EDT Impressions 01/28/2024 5:17 PM EDT IMPRESSION: 1. Hepatomegaly. There is extensive diffuse fatty infiltration of the liver, which is new since the prior study. No biliary ductal dilatation is visualized. 2. Nonobstructing 0.2 cm right renal calculus. 3. Small amount of free fluid is seen in the right paracolic gutter and pelvis. 4. Mild diffuse anasarca. THIS DOCUMENT HAS BEEN ELECTRONICALLY SIGNED BY DO Mickey DURAN 01/28/2024 5:17 PM EDT PROCEDURE INFORMATION: Exam: CT Abdomen And Pelvis With Contrast Exam date and time: 01/28/2024 4:24 PM Age: 43 years old Clinical indication: Other: Right upper quadrant pain, abdominal tenderness, scleral icterus/jaundice, firm liver TECHNIQUE: Imaging protocol: Computed tomography of the abdomen and pelvis with contrast. Radiation optimization: All CT scans at this facility use at least one of these dose optimization techniques: automated exposure control; mA and/or kV adjustment per patient size (includes targeted exams where dose is matched to clinical indication); or iterative reconstruction. Contrast material: ISOVUE 370; Contrast volume: 80 ml; Contrast route: INTRAVENOUS (IV); COMPARISON: CT ABD/PELVIS W IV AND W ORAL CONTRAST 07/28/2023 11:53 PM FINDINGS: Lungs: The visualized lung bases are clear. Liver: There is extensive fatty infiltration of the liver, which is new since the prior study. The liver is enlarged. No cystic or solid lesion is identified. Gallbladder and bile ducts: There has been a prior cholecystectomy. There is no intra or extrahepatic biliary ductal dilatation. Pancreas: Unremarkable. The main pancreatic duct is not dilated. Spleen: Unremarkable. No splenomegaly. Adrenal glands: Unremarkable. Kidneys and ureters: The kidneys enhance symmetrically. A nonobstructing 0.2 cm right renal calculus is visualized within the inferior pole. No hydronephrosis. Stomach and bowel: Small hiatal hernia is noted. 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 No abnormal bowel wall thickening or enhancement is seen. There is no bowel obstruction. Appendix: The appendix is visualized on image 48, series 2 and is unremarkable. No evidence of acute appendicitis. Intraperitoneal space: Small amount of free fluid is visualized within the right paracolic gutter and pelvis. Vasculature: No abdominal aortic aneurysm. Lymph nodes: No enlarged lymph nodes are seen. Urinary bladder: Unremarkable as visualized. Reproductive: Unremarkable as visualized. Bones/joints: Mild degenerative changes are seen in the spine. No acute fracture or dislocation. Soft tissues: There is mild diffuse anasarca. Procedure Note Jose F Sorensen DO - 01/28/2024 PROCEDURE INFORMATION: Exam: CT Abdomen And Pelvis With Contrast Exam date and time: 01/28/2024 4:24 PM Age: 43 years old Clinical indication: Other: Right upper quadrant pain, abdominaltenderness, scleral icterus/jaundice, firm liver TECHNIQUE: Imaging protocol: Computed tomography of the abdomen and pelvis withcontrast. Radiation optimization: All CT scans at this facility use at least one ofthese dose optimization techniques: automated exposure control; mA and/or kV adjustment per patient size (includes targeted exams where dose is matchedto clinical indication); or iterative reconstruction. Contrast material: ISOVUE 370; Contrast volume: 80 ml; Contrast route: INTRAVENOUS (IV); COMPARISON: CT ABD/PELVIS W IV AND W ORAL CONTRAST 07/28/2023 11:53 PM FINDINGS: Lungs: The visualized lung bases are clear. Liver: There is extensive fatty infiltration of the liver, which is newsince the prior study. The liver is enlarged. No cystic or solid lesion is identified. Gallbladder and bile ducts: There has been a prior cholecystectomy. Thereis no intra or extrahepatic biliary ductal dilatation. Pancreas: Unremarkable. The main pancreatic duct is not dilated. Spleen: Unremarkable. No splenomegaly. Adrenal glands: Unremarkable. Kidneys and ureters: The kidneys enhance symmetrically. A nonobstructing0.2 cm right renal calculus is visualized within the inferior pole. No hydronephrosis. Stomach and bowel: Small hiatal hernia is noted. 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 No abnormal bowel wall thickening orenhancement is seen. There is no bowel obstruction. Appendix: The appendix is visualized on image 48, series 2 and isunremarkable. No evidence of acute appendicitis. Intraperitoneal space: Small amount of free fluid is visualized withinthe right paracolic gutter and pelvis. Vasculature: No abdominal aortic aneurysm. Lymph nodes: No enlarged lymph nodes are seen. Urinary bladder: Unremarkable as visualized. Reproductive: Unremarkable as visualized. Bones/joints: Mild degenerative changes are seen in the spine. No acute fracture or dislocation. Soft tissues: There is mild diffuse anasarca. IMPRESSION IMPRESSION: 1. Hepatomegaly. There is extensive diffuse fatty infiltration of theliver, which is new since the prior study. No biliary ductal dilatation isvisualized. 2. Nonobstructing 0.2 cm right renal calculus. 3. Small amount of free fluid is seen in the right paracolic gutter andpelvis. 4. Mild diffuse anasarca. THIS DOCUMENT HAS BEEN ELECTRONICALLY SIGNED BY JOSE F SORENSEN DO Aamir Jain DO RAD CT * EKG (01/28/2024 4:34 PM EDT) 01/28/2024 4:34 PM EDT Narrative Procedure Note Mauricio Vitale DO - 01/28/2024 4:34 PM EDT REASON FOR STUDY: OTHER CONCLUSIONS: Normal sinus rhythm Low voltage QRS, consider pulmonary disease, pericardial effusion, ornormal variant Septal infarct (cited on or before 10-Sep-2022) Abnormal ECG When compared with ECG of 10-Sep-2022 17:37, No significant change was found Ventricular Rate: 90 Atrial Rate: 90 NH Interval: 138 QRS Duration: 68 QT/QTc: 376/459 ms P-R-T [place]: 51 : 55 : 44 degrees Aamir Jain DO EKG [facility] CARDIOLOGY * EXTRA LAVENDER TOP (01/28/2024 1:38 PM EDT) Blood Venous blood specimen / Unknown 01/28/2024 1:38 PM EDT 01/28/2024 1:50 PM EDT Aamir Jain DO LAB BLOOD ORDERABLE S Performing Organization Address City/[facility] Co de Phone Number LABORATORY [address] [address] * ETHANOL, MEDICAL (01/28/2024 1:38 PM EDT) [facility] ETHANOL, MEDICAL Negative Negative 01/28/2024 3:23 PM EDT LABORATORY [facility] Blood Venous blood specimen / Unknown Venipuncture / Unknown 01/28/2024 1:38 PM EDT 01/28/2024 1:48 PM EDT Aamir Dolan [facility] LAB BLOOD ORDERABLE S Performing Organization Address [facility] de Phone Number LABORATORY [address] [address] * BETA-HCG, QUANTITATIVE (01/28/2024 1:38 PM EDT) [facility] Beta-HCG, Quantitative <0.3 <=1.0 mIU/mL 01/28/2024 3:20 PM EDT LABORATORY [facility] Blood Venous blood specimen / Unknown Venipuncture / Unknown 01/28/2024 1:38 PM EDT 01/28/2024 1:48 PM EDT Narrative LABORATORY [facility] - 01/28/2024 3:20 PM EDT hCG can serve as a screening assay for . However, early may not give a positive hCG test result. In addition, some non- women may have a hCG result slightly higher than the reference limit. Careful interpretation of the hCG with clinical history is required to determine whether the patient may be . Postmenopausal women have higher hCG than premenopausal women. The reference interval for non- premenopausal women is <= 1 mIU/mL, and for postmenopausal women is <= 7 mIU/mL. [facility] S Performing Organization Address [facility] Co de Phone Number LABORATORY [address] [address] * APTT (01/28/2024 1:38 PM EDT) aPTT 32 21 - 38 seconds 01/28/2024 2:11 PM EDT LABORATORY [facility] Blood Venous blood specimen / Unknown Venipuncture / Unknown 01/28/2024 1:38 PM EDT 01/28/2024 1:49 PM EDT Narrative LABORATORY [facility] - 01/28/2024 2:11 PM EDT Anticoagulation may affect testing. Refer to [employer] Test Catalog for a list of effects. Aamir Jain LAB BLOOD ORDERABLE S LABORATORY [address] [address] * PT INR (01/28/2024 1:38 PM EDT) Pathologist [facility] Prothrombin Time 12.5 11.6 - 15.2 seconds 01/28/2024 2:10 PM EDT LABORATORY [facility] INR 0.9 0.8 - 1.2 01/28/2024 2:10 PM EDT LABORATORY [facility] Blood Venous blood specimen / Unknown Venipuncture / Unknown 01/28/2024 1:38 PM EDT 01/28/2024 1:49 PM EDT Narrative LABORATORY [facility] - 01/28/2024 2:10 PM EDT Warfarin Therapy INR: 2.0-3.0 conventional anticoagulation INR: 2.5-3.5 high intensity anticoagulation Aamir Jain DO LAB BLOOD ORDERABLE S Performing Organization Address City/[facility]/ZIP Co de Phone Number LABORATORY [address] [address] * EXTRA LIGHT BLUE TOP (01/28/2024 1:38 PM EDT) Blood Venous blood specimen / Unknown Venipuncture / Unknown 01/28/2024 1:38 PM EDT 01/28/2024 1:49 PM EDT Aamir Jain LAB BLOOD ORDERABLE S LABORATORY [address] [address] * (ABNORMAL) BNP, NT-PRO (01/28/2024 1:38 PM EDT) [facility] BNP, NT-Pro 303(H) <300 pg/mL 01/28/2024 3:55 PM EDT LABORATORY [facility] Blood Venous blood specimen / Unknown Venipuncture / Unknown 01/28/2024 1:38 PM EDT 01/28/2024 1:48 PM EDT Narrative LABORATORY [facility] - 01/28/2024 3:55 PM EDT Exclude Heart Failure: <300 pg/mL Diagnose Heart Failure: Age <50 yr: >450 pg/mL 50-75 yr: >900 pg/mL >75 yr: >1800 pg/mL GFR is 30-59 mL/min: >1200 pg/mL or Age-adjusted values GFR <30 mL/min: do not use, not reliable Prognostic threshold: 1000 pg/mL [facility] BLOOD ORDERABLE S LABORATORY [address] [address] * TROPONIN T, HIGH SENSITIVITY (01/28/2024 1:38 PM EDT) [facility] Troponin T, High Sensitivity 7 <=14 ng/L 01/28/2024 4:00 PM EDT LABORATORY [facility] Blood Venous blood specimen / Unknown Venipuncture / Unknown 01/28/2024 1:38 PM EDT 01/28/2024 1:48 PM EDT Aamir Dolan [facility] LAB BLOOD ORDERABLE S LABORATORY [address] [address] * ACUTE HEPATITIS PANEL (01/28/2024 1:38 PM EDT) [facility] Hepatitis A Antibody IgM Negative Negative 01/28/2024 7:00 PM EDT LAB[facility]ATORY [facility] Hepatitis B Core Antibody IgM Negative Negative 01/28/2024 7:00 PM EDT [facility] Hepatitis B Surface Antigen Negative Negative 01/28/2024 7:00 PM EDT [facility] Hepatitis C Antibody Negative Negative 01/28/2024 7:00 PM EDT [facility] Blood Venous blood specimen / Unknown Venipuncture / Unknown 01/28/2024 1:38 PM EDT 01/28/2024 1:48 PM EDT Aamir Dolan [facility] LAB BLOOD ORDERABLE S [facility]ORY [facility] [address] [place] [address] * CRP (INFLAMMATORY MARKER) (01/28/2024 1:38 PM EDT) CRP (Inflammatory Marker) 5 <=5 mg/L 01/28/2024 4:27 PM EDT LABORATORY [facility] Blood Venous blood specimen / Unknown Venipuncture / Unknown 01/28/2024 1:38 PM EDT 01/28/2024 1:48 PM EDT Aamir [facility] LAB BLOOD ORDERABLE S LABORATORY [address] [address] * (ABNORMAL) PROCALCITONIN (01/28/2024 1:38 PM EDT) Procalcitonin 0.24(H) <0.10 ng/mL 01/28/2024 3:55 PM EDT LABORATORY [facility] Blood Venous blood specimen / Unknown Venipuncture / Unknown 01/28/2024 1:38 PM EDT 01/28/2024 1:48 PM EDT Narrative LABORATORY [facility] - 01/28/2024 3:55 PM EDT Less than 0.5 ng/mL: Low risk for progression to sepsis. Review patients condition for localized infections. 0.5 to 2.0 ng/mL: Intermediate risk for progresion to sepsis. Review underlying conditions. Recommend repeat PCT after 6 hours has elapsed. Greater than 2.0 ng/mL: high risk for progression to sepsis unless other causes are known. Aamir Jain DO LAB BLOOD ORDERABLE S Performing Organization Address [facility]/ZIP Co de Phone Number LABORATORY [address] [phone] * AMMONIA (01/28/2024 1:38 PM EDT) Ammonia 18 11 - 35 umol/L 01/28/2024 2:07 PM EDT LABORATORY [facility] Blood Venous blood specimen / Unknown Venipuncture / Unknown 01/28/2024 1:38 PM EDT 01/28/2024 1:47 PM EDT Aamir Jain LAB BLOOD ORDERABLE S Performing Organization Address [facility] de Phone Number LABORATORY [address] [address] * (ABNORMAL) LACTATE WITH REFLEX IF ABNORMAL (01/28/2024 1:38 PM EDT) Lactate 2.7(H) 0.4 - 2.0 mmol/L 01/28/2024 2:12 PM EDT LABORATORY [facility] Blood Venous blood specimen / Unknown Venipuncture / Unknown 01/28/2024 1:38 PM EDT 01/28/2024 1:48 PM EDT Aamir Jain LAB BLOOD ORDERABLE S Performing Organization Address [facility] de Phone Number LABORATORY [address] [address] * LIPASE (01/28/2024 1:38 PM EDT) Lipase 20 13 - 60 U/L 01/28/2024 3:23 PM EDT LABORATORY [facility] Blood Venous blood specimen / Unknown Venipuncture / Unknown 01/28/2024 1:38 PM EDT 01/28/2024 1:48 PM EDT Aamir Jain DO LAB BLOOD ORDERABLE S Performing Organization Address [facility]/ZIP Co de Phone Number LABORATORY [facility] [address] [place] [address] * (ABNORMAL) HEPATIC FUNCTION PANEL (01/28/2024 1:38 PM EDT) Albumin 2.8(L) 3.8 - 5.0 g/dL 01/28/2024 3:12 PM EDT LABORATORY [facility] AST 456(H) 10 - 35 U/L 01/28/2024 3:12 PM EDT LABORATORY [facility] Alkaline Phosphatase 731(H) 35 - 130 U/L 01/28/2024 3:12 PM EDT LABORATORY [facility] ALT 208(H) 10 - 35 U/L 01/28/2024 3:12 PM EDT LABORATORY [facility] Bilirubin, Total 7.5(H) <=1.2 mg/dL 01/28/2024 3:12 PM EDT LABORATORY [facility] Bilirubin, Direct 5.4(H) 0.0 - 0.3 mg/dL 01/28/2024 3:12 PM EDT LABORATORY [facility] Protein 6.5 6.0 - 8.3 g/dL 01/28/2024 3:12 PM EDT LABORATORY [facility] Blood Venous blood specimen / Unknown Venipuncture / Unknown 01/28/2024 1:38 PM EDT 01/28/2024 1:48 PM EDT Aamir Jain DO LAB BLOOD ORDERABLE S Performing Organization Address City/[facility]/ZIP Co de Phone Number LABORATORY [address] [address] * BASIC METABOLIC PANEL (01/28/2024 1:38 PM EDT) BUN 7 6 - 20 mg/dL 01/28/2024 3:12 PM EDT LABORATORY [facility] Creatinine 0.6 0.5 - 1.0 mg/dL 01/28/2024 3:12 PM EDT LABORATORY [facility] Estimated Glomerular Filtration Rate >90 >=60 mL/min 01/28/2024 3:12 PM EDT LABORATORY [facility] Comment:eGFR is calculated b ased on the CKD-EPI 2020 equation Sodium 135 135 - 146 mmol/L 01/28/2024 3:12 PM EDT LABORATORY [facility] Potassium 3.8 3.5 - 5.1 mmol/L 01/28/2024 3:12 PM EDT LABORATORY [facility] Chloride 98 98 - 107 mmol/L 01/28/2024 3:12 PM EDT LABORATORY [facility] CO2 23 22 - 32 mmol/L 01/28/2024 3:12 PM EDT LABORATORY [facility] Anion Gap 14 7 - 15 mmol/L 01/28/2024 3:12 PM EDT LABORATORY [facility] Glucose 72 70 - 120 mg/dL 01/28/2024 3:12 PM EDT LABORATORY [facility] Calcium 8.8 8.4 - 10.2 mg/dL 01/28/2024 3:12 PM EDT LABORATORY [facility] Blood Venous blood specimen / Unknown Venipuncture / Unknown 01/28/2024 1:38 PM EDT 01/28/2024 1:48 PM EDT Aamir Jain DO LAB BLOOD ORDERABLE S LABORATORY [facility] [address] [place] [address] * XR CHEST 1 VIEW (01/28/2024 1:28 PM EDT) Anatomical Region Laterality Modality Chest Digital Radiogra phy 01/28/2024 1:22 PM EDT Impressions 01/28/2024 2:20 PM EDT IMPRESSION: No acute cardiopumonary process. THIS DOCUMENT HAS BEEN ELECTRONICALLY SIGNED BY JOSE F SORENSEN DO Narrative 01/28/2024 2:20 PM EDT PROCEDURE INFORMATION: Exam: XR Chest Exam date and time: 01/28/2024 1:22 PM Age: 43 years old Clinical indication: Other: Upper abd pain, SOB, PT states jaundice; Additional info: Shortness of breath TECHNIQUE: Imaging protocol: Radiologic exam of the chest. Views: 1 view. COMPARISON: DX XR CHEST 2 VIEWS 01/21/2024 9:46 AM FINDINGS: Tubes, catheters and devices: None. Lungs: No focal consolidation. Pleural spaces: No significant pleural effusion or pneumothorax. Heart/Mediastinum: No cardiomegaly. Bones/joints: Unremarkable. Procedure Note Jose F Sorensen DO - 01/28/2024 PROCEDURE INFORMATION: Exam: XR Chest Exam date and time: 01/28/2024 1:22 PM Age: 43 years old Clinical indication: Other: Upper abd pain, SOB, PT states jaundice;Additional info: Shortness of breath TECHNIQUE: Imaging protocol: Radiologic exam of the chest. Views: 1 view. COMPARISON: DX XR CHEST 2 VIEWS 01/21/2024 9:46 AM FINDINGS: Tubes, catheters and devices: None. Lungs: No focal consolidation. Pleural spaces: No significant pleural effusion or pneumothorax. Heart/Mediastinum: No cardiomegaly. Bones/joints: Unremarkable. IMPRESSION IMPRESSION: No acute cardiopumonary process. THIS DOCUMENT HAS BEEN ELECTRONICALLY SIGNED BY JOSE F SORENSEN DO Aamir Jain DO RADIOLOGY (RAD GENE RAL) documented in this encounter Visit Diagnoses Diagnosis Alcoholic hepatitis without ascites- Primary Acute alcoholic hepatitis SOB (shortness of breath) Shortness of breath Generalized abdominal pain Abdominal pain, generalized Transaminitis Nonspecific elevation of levels of transaminase or lactic acid dehydrogenase (LDH) Serum total bilirubin elevated Jaundice, unspecified, not of Elevated brain natriuretic peptide (BNP) level Other nonspecific findings on examination of blood Alcohol abuse Alcohol abuse, unspecified Asthma with COPD (chronic obstructive pulmonary disease) (HCC) Chronic obstructive asthma, unspecified Chest pain Chest pain, unspecified Upper abdominal pain, unspecified Fatty (change of) liver, not elsewhere classified Calculus of kidney Hepatomegaly, not elsewhere classified Other ascites Abdominal tenderness, unspecified site Umbilical hernia without obstruction or gangrene Umbilical hernia without mention of obstruction or gangrene Other specified postprocedural states Primary biliary cholangitis (HCC) Alcoholic hepatitis without ascites Acute alcoholic hepatitis Bipolar 1 disorder (HCC) Bipolar I disorder, most recent episode (or current) unspecified Hereditary and idiopathic peripheral neuropathy Unspecified hereditary and idiopathic peripheral neuropathy Asthma with severity to be determined S/P gastric bypass Bariatric surgery status Intestinal postoperative nonabsorption Other and unspecified postsurgical nonabsorption Chronic post-traumatic stress disorder (PTSD) Alcohol abuse Alcohol abuse, unspecified Acute metabolic encephalopathy Alcohol withdrawal delirium (HCC) Alcohol withdrawal delirium Alcoholic fatty liver Iron deficiency anemia Iron deficiency anemia, unspecified Malnutrition of moderate degree (HCC) Malnutrition of moderate degree Primary biliary cirrhosis (HCC) Biliary cirrhosis documented in this encounter Administered Medications Inactive Administered Medications - up to 3 most recent administrations Medication Order MAR Action Action Date Dose Rate Site Acetaminophen (Tylenol) tab 650 mg 650 mg, Oral, Q6H PRN Pain, Mild, Fever >38C(100.5F), Starting on Fri01/28/24 at 1824, Until Fri01/30/24 at 1549, Maximum of 4 grams (4000 mg) per day. Given 01/29/2024 5:03 AM EDT 650 mg Albuterol Sulfate (Proventil) (2.5 MG/3ML) 0.083% inhalation solution 2.5 mg 2.5 mg, Nebulizer, Q4H PRN Other, Dyspnea, Starting on Fri01/28/24 at 1820, Until Fri01/30/24 at 1549, For 7 days, Only one type of albuterol product should be administered (Nebulizer or Inhaler). Please select and document on the appropriate albuterol product order. Given 01/30/2024 7:48 AM EDT 2.5 mg albuterol-ipratropium (Duoneb) inhalation solution 3 mL 3 mL, Nebulizer, ONCE, On Fri01/28/24 at 1515, For 1 dose, 3 mL = 0.5 mg ipratropium/ 2.5 mg albuterol Given 01/28/2024 2:52 PM EDT 3 mL Bisacodyl (Dulcolax) supp 10 mg 10 mg, Rectal, DAILY PRN Constipation, Starting on 01/31/24 at 1824, Until Fri01/30/24 at 1549, Administer if no bowel movement within past 72 hours and patient unable to take oral medications. Bisacodyl (Dulcolax) tab 5 mg 5 mg, Oral, DAILY PRN Constipation, Starting on 01/31/24 at 1824, Until Fri01/30/24 at 1549, Administer in addition to polyethylene glycol and senna-docusate if no bowel movement in past 72 hours. buPROPion (Wellbutrin) tab 75 mg 75 mg, Oral, Daily(AM), First dose on Evelyn 01/29/24 at 0900, Until Discontinued Given 01/29/2024 7:54 AM EDT 75 mg Famotidine (Pepcid) inj 20 mg 20 mg, IV Push, ONCE, On Fri01/28/24 at 1515, For 1 dose, Give IV push over 2 minutes. Given 01/28/2024 3:45 PM EDT 20 mg Yupjtxqgzxo-Zgpxbyjghmsv-Shdrxluhs l (Trelegy Ellipta) 100-62.5-25 MCG/ACT inhaler 1 Puff 1 Puff, Inhalation, RESPDAILY, First dose on Fri01/30/24 at 0700, Until Discontinued Given 01/30/2024 7:46 AM EDT 1 Puff folic acid tab 1 mg 1 mg, Oral, Daily(AM), First dose (after last modification) on Fri01/28/24 at 1615, Until Discontinued Given 01/29/2024 7:54 AM EDT 1 mg Given 01/28/2024 3:42 PM EDT 1 mg folic acid tab 1 mg 1 mg, Oral, Daily(AM), First dose on Fri01/30/24 at 0900, Until Discontinued Given 01/30/2024 8:59 AM EDT 1 mg guanFACINE HCl (Tenex) tab 2 mg 2 mg, Oral, BID (.AM/PM), First dose on Fri01/28/24 at 2100, Until Discontinued Given 01/29/2024 7:54 AM EDT 2 mg Given 01/28/2024 9:16 PM EDT 2 mg HYDROmorphone (Dilaudid) inj 0.5 mg 0.5 mg, IV Push, ONCE, On Fri01/28/24 at 1545, For 1 dose Given 01/28/2024 3:43 PM EDT 0.5 mg HYDROmorphone (Dilaudid) inj 0.5 mg 0.5 mg, IV Push, Q4H PRN Pain, Severe, Starting on Fri01/28/24 at 1819, Until Fri01/29/24 at 1122 Given 01/29/2024 7:48 AM EDT 0.5 mg Given 01/29/2024 3:11 AM EDT 0.5 mg Given 01/28/2024 8:55 PM EDT 0.5 mg Iopamidol (Isovue 370) inj 80 mL 80 mL, Intravenous, ONCE, On Fri01/28/24 at 1730, For 1 dose, Radiology Medication Routing (Non-IR) Given 01/28/2024 5:30 PM EDT 80 mL LORazepam (Ativan) tab 1 mg 1 mg, Oral, Q1H PRN Other, CIWA-Ar score 8-15, repeat CIWA-Ar in 60 minutes. Assess and record Level of consciousness and Respiratory Rate just prior to each dose of LORazepam and 15 minutes after each dose of LORazepam. Hold LORazepam for Respiratory Rate less than 12, somnolent/inability to arouse. Notify provider if 2 doses are given within 2 hours., Starting on Fri01/28/24 at 1321, Until Fri01/29/24 at 1312, For 6 days Given 01/29/2024 8:02 AM EDT 1 mg Given 01/28/2024 6:12 PM EDT 1 mg LORazepam (Ativan) tab 1 mg 1 mg, Oral, Q1H PRN Other, CIWA-Ar score 8-15, repeat CIWA-Ar in 60 minutes. Assess and record Level of consciousness and Respiratory Rate just prior to each dose of LORazepam and 15 minutes after each dose of LORazepam. Hold LORazepam for Respiratory Rate less than 12, somnolent/inability to arouse. Notify provider if 2 doses are given within 2 hours., Starting on Fri01/29/24 at 1337, Until Fri01/30/24 at 1549, For 6 days Given 01/30/2024 7:36 AM EDT 1 mg LORAzepam (Ativan) tab 2 mg 2 mg, Oral, Q1H PRN Other, CIWA-Ar score 16-25, repeat CIWA-Ar in 60 minutes. Assess and record Level of consciousness and Respiratory Rate just prior to each dose of LORazepam and 15 minutes after each dose of LORazepam. Hold LORazepam for Respiratory Rate less than 12, somnolent/inability to arouse. Notify provider if 2 doses are given within 2 hours., Starting on Fri01/28/24 at 1321, Until Fri01/29/24 at 1312, For 6 days Given 01/28/2024 2:10 PM EDT 2 mg LORAzepam (Ativan) tab 2 mg 2 mg, Oral, Q1H PRN Other, CIWA-Ar score 16-25, repeat CIWA-Ar in 60 minutes. Assess and record Level of consciousness and Respiratory Rate just prior to each dose of LORazepam and 15 minutes after each dose of LORazepam. Hold LORazepam for Respiratory Rate less than 12, somnolent/inability to arouse. Notify provider if 2 doses are given within 2 hours., Starting on Fri01/29/24 at 1337, Until Fri01/30/24 at 1549, For 6 days LORAzepam (Ativan) tab 4 mg 4 mg, Oral, Q6H, First dose on Fri01/28/24 at 1430, Last dose on Fri01/30/24 at 0600, For 8 doses, Hold LORazepam for Respiratory Rate less than 12, somnolent/inability to arouse. Given 01/29/2024 5:14 AM EDT 4 mg Given 01/28/2024 11:30 PM EDT 4 mg LORAzepam (Ativan) tab 4 mg 4 mg, Oral, Q1H PRN Other, CIWA-Ar Score greater than 25, repeat CIWA-Ar in 60 minutes. Assess and record Level of consciousness and Respiratory Rate just prior to each dose of LORazepam and 15 minutes after each dose of LORazepam. Hold LORazepam for Respiratory Rate less than 12, somnolent/inability to arouse. Notify provider if 2 doses are given within 2 hours., Starting on Fri01/29/24 at 1337, Until Fri01/30/24 at 1549, For 6 days metoclopramide (Reglan) inj 10 mg 10 mg, IV Push, ONCE, On Fri01/30/24 at 0115, For 1 dose Given 01/30/2024 1:07 AM EDT 10 mg morphine sulfate inj 2 mg 2 mg, IV Push, Q4H PRN Pain, Moderate, Starting on Fri01/30/24 at 0041, Until Fri01/30/24 at 0920, For 3 doses Given 01/30/2024 5:31 AM EDT 2 mg Given 01/30/2024 1:06 AM EDT 2 mg multivitamin (Mvi) 1 Tablet 1 Tablet, Oral, DAILY NOON, First dose on Fri01/28/24 at 1400, Until Discontinued Given 01/28/2024 2:09 PM EDT 1 Ta blet multivitamin (Mvi) 1 Tablet 1 Tablet, Oral, DAILY NOON, First dose on Fri01/29/24 at 1415, Until Discontinued Given 01/29/2024 2:32 PM EDT 1 Ta blet naltrexone (Revia) tab 50 mg 50 mg, Oral, Daily(AM), First dose on Fri01/30/24 at 1000, Last dose on Fri02/12/24 at 0900, For 14 doses Given 01/30/2024 9:50 AM EDT 50 mg omeprazole (PriLOSEC) cap 40 mg 40 mg, Oral, BEFORE BREAKFAST, First dose on Fri01/29/24 at 0745, Until Discontinued Given 01/30/2024 6:33 AM EDT 4 0 mg Given 01/29/2024 6:50 AM EDT 40 mg ondansetron (Zofran) inj 4 mg 4 mg, IV Push, ONCE, On Fri01/28/24 at 1445, For 1 dose Given 01/28/2024 2:14 PM EDT 4 mg ondansetron (Zofran) inj 4 mg 4 mg, IV Push, Q6H PRN Nausea, Starting on Fri01/28/24 at 1824, Until Fri01/30/24 at 1549 Given 01/29/2024 5:45 PM EDT 4 mg Polyethylene Glycol 3350 (Miralax) oral powder 17 g 17 g (1 Packet), Oral, DAILY PRN Constipation, Starting on Fri01/28/24 at 1824, Until Fri01/30/24 at 1549, Administer if no bowel movement within past 24 hours. prazosin (Minipress) cap 5 mg 5 mg, Oral, Daily(AM), First dose on Fri01/29/24 at 0900, Until Discontinued, Hold for SBP below 100 and notify service if dose is held Given 01/29/2024 7:54 AM EDT 5 mg senna-docusate (Senokot-S) 1 Tablet 1 Tablet, Oral, BID PRN Constipation, Starting on Fri01/30/24 at 1824, Until Fri01/30/24 at 1549, Administer in addition to polyethylene glycol if no bowel movement within past 48 hours. sodium chloride 0.9 % flush peripheral bradley 3 mL 3 mL, IV Push, QSHIFT, First dose on Fri01/29/24 at 0000, Until Discontinued, Do not flush if lock, PICC, or central line not in place; IV infusing or unable to flush. Given 01/30/2024 8:00 AM EDT 3 mL Given 01/30/2024 12:00 AM EDT 3 mL Given 01/29/2024 4:00 PM EDT 3 mL Thiamine (Vitamin B-1) tab 100 mg 100 mg, Oral, Daily(AM), First dose (after last modification) on Fri01/28/24 at 1615, Until Discontinued Given 01/29/2024 7:54 AM EDT 100 mg Given 01/28/2024 3:42 PM EDT 100 mg Thiamine (Vitamin B-1) tab 100 mg 100 mg, Oral, Daily(AM), First dose on Fri01/30/24 at 0900, Until Discontinued Given 01/30/2024 8:59 AM EDT 100 mg traZODone (Desyrel) tab 100 mg 100 mg, Oral, QHS, First dose on Fri01/28/24 at 2200, Until Discontinued Given 01/28/2024 9:16 PM EDT 100 mg traZODone (Desyrel) tab 100 mg 100 mg, Oral, QHS PRN Insomnia, Starting on Fri01/29/24 at 1348, Until Fri01/30/24 at 1549, Hold if sedated Ursodiol (Actigall) cap 300 mg 300 mg, Oral, TID(AM/NOON/HS), First dose on Fri01/28/24 at 2200, Until Discontinued Given 01/29/2024 5:14 AM EDT 300 mg Given 01/28/2024 9:16 PM EDT 300 mg Ursodiol (Actigall) cap 300 mg 300 mg, Oral, BID (.AM/PM), First dose on Fri01/29/24 at 2100, Until Discontinued Given 01/30/2024 8:59 AM EDT 300 mg Given 01/29/2024 8:08 PM EDT 300 mg ziprasidone (Geodon) cap 80 mg 80 mg, Oral, Daily(AM), First dose on Fri01/29/24 at 0900, Until Discontinued, take with food Given 01/29/2024 7:54 AM EDT 80 mg documented in this encounter Active and Recently Administered Medications Times are shown in EDT. Scheduled Medication Order 01/28/2024 01/29/2024 01/30/2024 albuterol-ipratropium (Duoneb) inhalation solution 3 mL (COMPLETED) 3 mL, Nebulizer, ONCE, On Fri01/28/24 at 1515, For 1 dose, 3 mL = 0.5 mg ipratropium/ 2.5 mg albuterol 1452 (Given - Provider: Jules Myles, ANI) buPROPion (Wellbutrin) tab 75 mg (CANCELED) 75 mg, Oral, Daily(AM), First dose on Fri01/29/24 at 0900, Until Discontinued 075 (Given - Provider: Olivia Brenner RN) Famotidine (Pepcid) inj 20 mg (COMPLETED) 20 mg, IV Push, ONCE, On Fri01/28/24 at 1515, For 1 dose, Give IV push over 2 minutes. 1545 (Given - Provider: Danielle Parson RN) Fluticasone-Umeclidiniu m-Vilanterol (Trelegy Ellipta) 100-62.5-25 MCG/ACT inhaler 1 Puff 1 Puff, Inhalation, RESPDAILY, First dose on Fri01/30/24 at 0700, Until Discontinued 0746 (Given - Provider: Cr Caba, ANI) folic acid tab 1 mg (CANCELED) 1 mg, Oral, Daily(AM), First dose (after last modification) on Fri01/28/24 at 1615, Until Discontinued 1542 (Given - Provider: Danielle Parson RN) 075 (Given - Provider: Olivia Brenner RN) folic acid tab 1 mg 1 mg, Oral, Daily(AM), First dose on Fri01/30/24 at 0900, Until Discontinued 0859 (Given - Provider: Olivia Brenner RN) guanFACINE HCl (Tenex) tab 2 mg (CANCELED) 2 mg, Oral, BID (.AM/PM), First dose on Fri01/28/24 at 2100, Until Discontinued 2115 (Given - Provider: Keturah Erickson RN) 075 (Given - Provider: Olivia Brenner RN) HYDROmorphone (Dilaudid) inj 0.5 mg (COMPLETED) 0.5 mg, IV Push, ONCE, On Fri01/28/24 at 1545, For 1 dose 1543 (Given - Provider: Danielle Parson RN) Iopamidol (Isovue 370) inj 80 mL (COMPLETED) 80 mL, Intravenous, ONCE, On Fri01/28/24 at 1730, For 1 dose, Radiology Medication Routing (Non-IR) 1730 (Given - Provider: Aracely Diamond, RT) LORAzepam (Ativan) tab 4 mg (CANCELED) 4 mg, Oral, Q6H, First dose on Fri01/28/24 at 1430, Last dose on Fri01/30/24 at 0600, For 8 doses, Hold LORazepam for Respiratory Rate less than 12, somnolent/inability to arouse. 1430 (Not Given - Provider: Danielle Parson RN - Reason: Order Discontinued - Comment: PRN ativan given)1800 (Not Given - Provider: Danielle Parson RN - Reason: Order Clarified - Comment: per Dr. Guerrero)2330 (Given - Provider: Nixon Gallegos RN) 0514 (Given - Provider: Keturah Erickson RN) metoclopramide (Reglan) inj 10 mg (COMPLETED) 10 mg, IV Push, ONCE, On Fri01/30/24 at 0115, For 1 dose 0107 (Given - Provider: Keturah Erickson RN) multivitamin (Mvi) 1 Tablet (CANCELED) 1 Tablet, Oral, DAILY NOON, First dose on Fri01/28/24 at 1400, Until Discontinued 1409 (Given - Provider: Danielle Parson RN) 1200 (Not Given - Provider: Olivia Brenner RN - Reason: Clinician Judgement-Notify Provider) multivitamin (Mvi) 1 Tablet 1 Tablet, Oral, DAILY NOON, First dose on Fri01/29/24 at 1415, Until Discontinued 1432 (Given - Provider: Olivia Brenner, MELANI) naltrexone (Revia) tab 50 mg 50 mg, Oral, Daily(AM), First dose on Fri01/30/24 at 1000, Last dose on Fri02/12/24 at 0900, For 14 doses 0950 (Given - Provider: Pricillashaniqua Springer RN) omeprazole (PriLOSEC) cap 40 mg 40 mg, Oral, BEFORE BREAKFAST, First dose on Evelyn 01/29/24 at 0745, Until Discontinued 0650 (Given - Provider: Nixon Gallegos RN) 0633 (Given - Provider: Nixon Gallegos RN) ondansetron (Zofran) inj 4 mg (COMPLETED) 4 mg, IV Push, ONCE, On Fri01/28/24 at 1445, For 1 dose 1414 (Given - Provider: Danielle Parson RN) oxygen GAS Inhalation, OXYGEN, First dose on Fri01/28/24 at 1900, Until Discontinued, Device/Managed by: Low Flow Device, Goal SPO2 (%): 91-95, Starting Device: Nasal Cannula, Initial Flow Rate (LPM): 2, Lowest Support: Nasal Cannula: Flow 0-6 LPM. Titrate up/down by 1 LPM., Higher Support: Non-Rebreather (NRB) Mask: Minimum of 10 LPM. Titrate to maintain bag inflation., Titration Interval: Q2 minutes and as needed., Notify Provider: For sudden DECREASE in resting SPO2 to less than 85% and when escalating delivery device., Wean patient off Oxygen when the oxygen saturation is greater than or equal to 93% 1900 (Oxygen Off - Provider: Keturah Erickson RN) 0000 (Oxygen Off - Provider: Keturah Erickson RN)0800 (Oxygen Off - Provider: Pricilla Springer, MELANI)1600 (Oxygen Off - Provider: Olivia Brenner RN) 0000 (Oxygen Off - Provider: Nixon Gallegos RN)0800 (Oxygen Off - Provider: Pricilla Springer RN) prazosin (Minipress) cap 5 mg (CANCELED) 5 mg, Oral, Daily(AM), First dose on Fri01/29/24 at 0900, Until Discontinued, Hold for SBP below 100 and notify service if dose is held 0754 (Given - Provider: Olivia Brenner RN) sodium chloride 0.9 % flush peripheral bradley 3 mL 3 mL, IV Push, QSHIFT, First dose on Fri01/29/24 at 0000, Until Discontinued, Do not flush if lock, PICC, or central line not in place; IV infusing or unable to flush. 0000 (Given - Provider: Keturah Erickson RN)0800 (Given - Provider: Olivia Brenner RN)1600 (Given - Provider: Olivia Brenner RN) 0000 (Given - Provider: Nixon Gallegos RN)0800 (Given - Provider: Olivia Brenner RN) Thiamine (Vitamin B-1) tab 100 mg (CANCELED) 100 mg, Oral, Daily(AM), First dose (after last modification) on Fri01/28/24 at 1615, Until Discontinued 154 (Given - Provider: Danielle Parson RN) 0754 (Given - Provider: Olivia Brenner RN) Thiamine (Vitamin B-1) tab 100 mg 100 mg, Oral, Daily(AM), First dose on Fri01/30/24 at 0900, Until Discontinued 0859 (Given - Provider: Olivia Brenner RN) traZODone (Desyrel) tab 100 mg (CANCELED) 100 mg, Oral, QHS, First dose on Fri01/28/24 at 2200, Until Discontinued 2115 (Given - Provider: Keturah Erickson RN) Ursodiol (Actigall) cap 300 mg (CANCELED) 300 mg, Oral, TID(AM/NOON/HS), First dose on Fri01/28/24 at 2200, Until Discontinued 2115 (Given - Provider: Keturah Erickson RN) 0514 (Given - Provider: Keturah Erickson RN)1200 (Not Given - Provider: Olivia Brenner RN - Reason: Clinician Judgement-Notify Provider) Ursodiol (Actigall) cap 300 mg 300 mg, Oral, BID (.AM/PM), First dose on Fri01/29/24 at 2100, Until Discontinued 2007 (Given - Provider: Nixon Gallegos RN) 0859 (Given - Provider: Olivia Brenner RN) ziprasidone (Geodon) cap 80 mg (CANCELED) 80 mg, Oral, Daily(AM), First dose on Fri01/29/24 at 0900, Until Discontinued, take with food 0754 (Given - Provider: Olivia Brenner RN) PRN Medication Order 01/28/2024 01/29/2024 01/30/2024 Acetaminophen (Tylenol) tab 650 mg 650 mg, Oral, Q6H PRN Pain, Mild, Fever >38C(100.5F), Starting on Fri01/28/24 at 1824, Until Fri01/30/24 at 1549, Maximum of 4 grams (4000 mg) per day. 0503 (Given - Provider: Keturah Erickson RN) Albuterol Sulfate (Proventil) (2.5 MG/3ML) 0.083% inhalation solution 2.5 mg 2.5 mg, Nebulizer, Q4H PRN Other, Dyspnea, Starting on Fri01/28/24 at 1820, Until Fri01/30/24 at 1549, For 7 days, Only one type of albuterol product should be administered (Nebulizer or Inhaler). Please select and document on the appropriate albuterol product order. 0748 (Given - Provider: Cr Caba RRT) Bisacodyl (Dulcolax) supp 10 mg(Linked Group 1) 10 mg, Rectal, DAILY PRN Constipation, Starting on 01/31/24 at 1824, Until Fri01/30/24 at 1549, Administer if no bowel movement within past 72 hours and patient unable to take oral medications. Bisacodyl (Dulcolax) tab 5 mg(Linked Group 1) 5 mg, Oral, DAILY PRN Constipation, Starting on 01/31/24 at 1824, Until Fri01/30/24 at 1549, Administer in addition to polyethylene glycol and senna-docusate if no bowel movement in past 72 hours. calcium CARBonate (Tums E-X) tab CHEW 750 mg 750 mg, Oral, BID PRN Indigestion, Starting on Fri01/28/24 at 1824, Until Fri01/30/24 at 1549 guaiFENesin (Robitussin) oral liquid 200 mg 200 mg, Oral, Q4H PRN Cough, Starting on Fri01/28/24 at 1824, Until Fri01/30/24 at 1549 HYDROmorphone (Dilaudid) inj 0.5 mg (CANCELED) 0.5 mg, IV Push, Q4H PRN Pain, Severe, Starting on Fri01/28/24 at 1819, Until Evelyn 01/29/24 at 1122 2055 (Given - Provider: Nixon Gallegos RN) 0311 (Given - Provider: Nixon Gallegos RN)0748 (Given - Provider: Olivia Brenner RN - Comment: 0.5mg wasted with Andrea Springer RN) LORazepam (Ativan) tab 1 mg (CANCELED) 1 mg, Oral, Q1H PRN Other, CIWA-Ar score 8-15, repeat CIWA-Ar in 60 minutes. Assess and record Level of consciousness and Respiratory Rate just prior to each dose of LORazepam and 15 minutes after each dose of LORazepam. Hold LORazepam for Respiratory Rate less than 12, somnolent/inability to arouse. Notify provider if 2 doses are given within 2 hours., Starting on Fri01/28/24 at 1321, Until Fri01/29/24 at 1312, For 6 days 1812 (Given - Provider: Danielle Parson RN) 0802 (Given - Provider: Olivia Brenner RN - Comment: INESSA 8) LORazepam (Ativan) tab 1 mg 1 mg, Oral, Q1H PRN Other, CIWA-Ar score 8-15, repeat CIWA-Ar in 60 minutes. Assess and record Level of consciousness and Respiratory Rate just prior to each dose of LORazepam and 15 minutes after each dose of LORazepam. Hold LORazepam for Respiratory Rate less than 12, somnolent/inability to arouse. Notify provider if 2 doses are given within 2 hours., Starting on Fri01/29/24 at 1337, Until Fri01/30/24 at 1549, For 6 days 0736 (Given - Provider: Olivia Brenner RN - Comment: CIAMIRAH 9) LORAzepam (Ativan) tab 2 mg (CANCELED) 2 mg, Oral, Q1H PRN Other, CIWA-Ar score 16-25, repeat CIWA-Ar in 60 minutes. Assess and record Level of consciousness and Respiratory Rate just prior to each dose of LORazepam and 15 minutes after each dose of LORazepam. Hold LORazepam for Respiratory Rate less than 12, somnolent/inability to arouse. Notify provider if 2 doses are given within 2 hours., Starting on Fri01/28/24 at 1321, Until Fri01/29/24 at 1312, For 6 days 1410 (Given - Provider: Danielle Parson RN) LORAzepam (Ativan) tab 2 mg 2 mg, Oral, Q1H PRN Other, CIWA-Ar score 16-25, repeat CIWA-Ar in 60 minutes. Assess and record Level of consciousness and Respiratory Rate just prior to each dose of LORazepam and 15 minutes after each dose of LORazepam. Hold LORazepam for Respiratory Rate less than 12, somnolent/inability to arouse. Notify provider if 2 doses are given within 2 hours., Starting on Fri01/29/24 at 1337, Until Fri01/30/24 at 1549, For 6 days LORAzepam (Ativan) tab 4 mg 4 mg, Oral, Q1H PRN Other, CIWA-Ar Score greater than 25, repeat CIWA-Ar in 60 minutes. Assess and record Level of consciousness and Respiratory Rate just prior to each dose of LORazepam and 15 minutes after each dose of LORazepam. Hold LORazepam for Respiratory Rate less than 12, somnolent/inability to arouse. Notify provider if 2 doses are given within 2 hours., Starting on Evelyn 01/29/24 at 1337, Until Fri01/30/24 at 1549, For 6 days melatonin tab 3 mg 3 mg, Oral, HS PRN Insomnia, Starting on Fri01/28/24 at 1824, Until Fri01/30/24 at 1549 Menthol ([place]) cough drop 1 Lozenge 1 Lozenge, Oral, Q2H PRN Sore throat, Starting on Fri01/28/24 at 1824, Until Fri01/30/24 at 1549 morphine sulfate inj 2 mg (CANCELED) 2 mg, IV Push, Q4H PRN Pain, Moderate, Starting on Fri01/30/24 at 0041, Until Fri01/30/24 at 0920, For 3 doses 0106 (Given - Provider: Keturah Erickson RN)0531 (Given - Provider: Keturah Erickson RN) ondansetron (Zofran) inj 4 mg 4 mg, IV Push, Q6H PRN Nausea, Starting on Fri01/28/24 at 1824, Until Fri01/30/24 at 1549 1745 (Given - Provider: Olivia Brenner RN) Polyethylene Glycol 3350 (Miralax) oral powder 17 g(Linked Group 1) 17 g (1 Packet), Oral, DAILY PRN Constipation, Starting on Fri01/28/24 at 1824, Until Fri01/30/24 at 1549, Administer if no bowel movement within past 24 hours. propranolol (Inderal) tab 10 mg 10 mg, Oral, BID PRN Other, panic attack, Starting on Fri01/28/24 at 1822, Until Fri01/30/24 at 1549, Hold for HR less than 60 or SBP below 100 and notify service if dose is held senna-docusate (Senokot-S) 1 Tablet(Linked Group 1) 1 Tablet, Oral, BID PRN Constipation, Starting on Fri01/30/24 at 1824, Until Fri01/30/24 at 1549, Administer in addition to polyethylene glycol if no bowel movement within past 48 hours. sodium chloride 0.9 % flush/inj 3 mL 3 mL, IV Push, PRN Other, Line Patency, Starting on Fri01/28/24 at 1823, Until Fri01/30/24 at 1549, Do not flush if lock, PICC, or central line not in place, IV infusing or unable to flush traZODone (Desyrel) tab 100 mg 100 mg, Oral, QHS PRN Insomnia, Starting on Evelyn 01/29/24 at 1348, Until Fri01/30/24 at 1549, Hold if sedated Linked Groups Order Group 1: Polyethylene Glycol 3350 (Miralax) oral powder 17 gJump to med 17 g (1 Packet), Oral, DAILY PRN Constipation, Starting on Fri01/28/24 at 1824, Until Fri01/30/24 at 1549, Administer if no bowel movement within past 24 hours. And senna-docusate (Senokot-S) 1 TabletJump to med 1 Tablet, Oral, BID PRN Constipation, Starting on Fri01/30/24 at 1824, Until Fri01/30/24 at 1549, Administer in addition to polyethylene glycol if no bowel movement within past 48 hours. And Bisacodyl (Dulcolax) tab 5 mgJump to med 5 mg, Oral, DAILY PRN Constipation, Starting on 01/31/24 at 1824, Until Fri01/30/24 at 1549, Administer in addition to polyethylene glycol and senna- docusate if no bowel movement in past 72 hours. And Bisacodyl (Dulcolax) supp 10 mgJump to med 10 mg, Rectal, DAILY PRN Constipation, Starting on 01/31/24 at 1824, Until 01/30/24 at 1549, Administer if no bowel movement within past 72 hours and patient unable to take oral medications. documented in this encounter Advance Directives * Full Code [...]
--- OUTSIDE RECORDS SUMMARY | 2024-02-05 06:48 | External Medical Summary ---
Author Name Unknown Address Unknown Organization K1F:LAB[facility]ATORY [facility] - [address] [place] [address] Laboratory Report Ordering Provider Test Date Status SUZY BUTTS 01/28/2024 13:38:46 Final Observation Date Value Abnormality Reference (Units ) Status BUN 01/28/2024 13:38:46 7 6-20 (mg/dL) Final Creatinine 01/28/2024 13:38:46 0.6 0.5-1.0 (mg/dL) Final Glomerular filtration rate/1.73 sq M.predicted [Volume Rate/Area] in Serum, Plasma or Blood by Creatinine-based formula (CKD-EPI) 01/28/2024 13:38:46 >90 >=60 (mL/min) Final eGFR is calculated based on the CKD-EPI 2020 equation Sodium 01/28/2024 13:38:46 135 135-146 (m mol/L) Final Potassium 01/28/2024 13:38:46 3.8 3.5-5.1 (m mol/L) Final Cl 01/28/2024 13:38:46 98 98-107 (mm ol/L) Final CO2 01/28/2024 13:38:46 23 22-32 (mmo l/L) Final Anion gap 01/28/2024 13:38:46 14 7-15 (mmol /L) Final Glucose 01/28/2024 13:38:46 72 70-120 (mg /dL) Final Calcium 01/28/2024 13:38:46 8.8 8.4-10.2 ( mg/dL) Final Performing Location LAB[facility]ATORY [facility] - [address] [facility] [address] [place] [address]
--- OUTSIDE RECORDS SUMMARY | 2024-02-05 06:48 | External Medical Summary ---
Author Name Unknown Address Unknown Organization K1F:LABORATORY [facility] - [address] [place] [address] Laboratory Report Ordering Provider Test Date Status SUZY BUTTS 01/28/2024 13:38:46 Final Observation Date Value Abnormality Reference (Units ) Status Lactic Acid 01/28/2024 13:38:46 2.7 Above high normal 0.4-2.0 (mmol/L) Final Performing Location LAB[facility]ATORY [facility] - [address] [place] [address]
--- OUTSIDE RECORDS SUMMARY | 2024-02-05 06:48 | External Medical Summary ---
Author Name Unknown Address Unknown Organization K01:LABORATORY [facility] - [address] [address] Laboratory Report Ordering Provider Test Date Status STACIE WOOTEN 01/28/2024 18:21:44 Final Cutoff Concentration:
D rug Level
THC-COOH 10 ng/mL

This test was developed and its performance characteristics determined by [employer]. It has not been cleared or approved by the [place] Food and Drug Administration.
null Observation Date Value Abnormality Reference (Units ) Status METHODOLOGY 01/28/2024 18:21:44 LC-MS/MS Final Cannabinoids, Urine confirmatory 01/28/2024 18:21:44 11 Above high normal Negative (ng/mL) Final Performing Location LABORATORY [facility] - [facility] [address] [facility] [address]
--- OUTSIDE RECORDS SUMMARY | 2024-02-05 06:48 | External Medical Summary ---
Author Name Unknown Address Unknown Organization K1F:LABORATORY [facility] - [address] [place] [address] Laboratory Report Ordering Provider Test Date Status ABIMBOLA IBARRA 01/28/2024 17:06:29 Final Observation Date Value Abnormality Reference (Units ) Status WBC, Total 01/28/2024 17:06:29 5.45 4.00-10.80 (K/uL) Final RBC 01/28/2024 17:06:29 3.05 3.85-5.15 (M/uL) Final Hemoglobin 01/28/2024 17:06:29 10.5 Below low normal 12.0-15.3 (g/dL) Final HCT 01/28/2024 17:06:29 30.8 Below low normal 36.0-45.2 (%) Final MCV 01/28/2024 17:06:29 101.0 81.5-97.5 (fL) Final MCH 01/28/2024 17:06:29 34.4 27.0-34.0 (pg) Final MCHC 01/28/2024 17:06:29 34.1 32.0-36.0 (g/dL) Final RDW 01/28/2024 17:06:29 22.1 11.5-15.5 (%) Final Platelets 01/28/2024 17:06:29 117 Below low normal 140-400 (K/uL) Final MPV 01/28/2024 17:06:29 11.2 6.6-11.1 (fL) Final Nucleated erythrocytes/100 leukocytes [Ratio] in Blood by Automated count 01/28/2024 17:06:29 0 <=0 (/100 WBCs) Final Performing [facility] [address] [facility] [place] [address]
--- OUTSIDE RECORDS SUMMARY | 2024-02-05 06:48 | External Medical Summary ---
Author Name Unknown Address Unknown Organization K1F:LABORATORY [facility] - [address] [place] [address] Laboratory Report Ordering Provider Test Date Status JENS SARAH 01/30/2024 05:46:00 Final Observation Date Value Abnormality Reference (Units ) Status WBC, Total 01/30/2024 05:46:00 4.80 4.00-10.80 (K/uL) Final RBC 01/30/2024 05:46:00 2.84 3.85-5.15 (M/uL) Final Hemoglobin 01/30/2024 05:46:00 10.0 Below low normal 12.0-15.3 (g/dL) Final HCT 01/30/2024 05:46:00 29.8 Below low normal 36.0-45.2 (%) Final MCV 01/30/2024 05:46:00 104.9 81.5-97.5 (fL) Final MCH 01/30/2024 05:46:00 35.2 27.0-34.0 (pg) Final MCHC 01/30/2024 05:46:00 33.6 32.0-36.0 (g/dL) Final RDW 01/30/2024 05:46:00 21.6 11.5-15.5 (%) Final Platelets 01/30/2024 05:46:00 105 Below low normal 140-400 (K/uL) Final MPV 01/30/2024 05:46:00 11.8 6.6-11.1 (fL) Final Nucleated erythrocytes/100 leukocytes [Ratio] in Blood by Automated count 01/30/2024 05:46:00 0 <=0 (/100 WBCs) Final Performing Location LAB[facility]ATORY [facility] - [address] [place] [address]
--- OUTSIDE RECORDS SUMMARY | 2024-02-05 06:48 | External Medical Summary ---
Author Name Unknown Address Unknown Organization K1F:LABORATORY [facility] - [address] [place] [address] Laboratory Report Ordering Provider Test Date Status SUZY BUTTS 01/28/2024 13:38:46 Final Observation Date Value Abnormality Reference (Units ) Status Troponin T 01/28/2024 13:38:46 7 <=14 (ng/ L) Final Performing Location LABORATORY [facility] - [address] [place] [address]
--- OUTSIDE RECORDS SUMMARY | 2024-02-05 06:48 | External Medical Summary ---
Author Name Unknown Address Unknown Organization : Laboratory Report Ordering Provider Test Date Status JENS SARAH 01/29/2024 13:38:37 Final Observation Date Value Abnormality Reference (Units ) Status Glucose Point of Care 01/29/2024 13:38:37 102 70-120 (mg/dL) Final Performing Location
--- OUTSIDE RECORDS SUMMARY | 2024-02-05 06:48 | External Medical Summary ---
Author Name Unknown Address Unknown Organization K1F:LABORATORY [facility] - [address] [place] [address] Laboratory Report Ordering Provider Test Date Status JENS SARAH 01/29/2024 08:06:00 Final Observation Date Value Abnormality Reference (Units ) Status WBC, Total 01/29/2024 08:06:00 4.05 4.00-10.8 0 (K/uL) Final RBC 01/29/2024 08:06:00 2.85 3.85-5.15 (M/uL) Final Hemoglobin 01/29/2024 08:06:00 9.6 Below low normal 12 .0-15.3 (g/dL) Final HCT 01/29/2024 08:06:00 29.3 Below low normal 36. 0-45.2 (%) Final MCV 01/29/2024 08:06:00 102.8 81.5-97.5 (fL) Final MCH 01/29/2024 08:06:00 33.7 27.0-34.0 (pg) Final MCHC 01/29/2024 08:06:00 32.8 32.0-36.0 (g/dL) Final RDW 01/29/2024 08:06:00 22.3 11.5-15.5 (%) Final Platelets 01/29/2024 08:06:00 105 Below low normal 140 -400 (K/uL) Final Results rechecked.
null MPV 01/29/2024 08:06:00 11.4 6.6-11.1 ( fL) Final Nucleated erythrocytes/100 leukocytes [Ratio] in Blood by Automated count 01/29/2024 08:06:00 0 <=0 (/100 WBCs) Fi nal Performing Location LABORATORY [facility] - [address] [place] [address]
--- OUTSIDE RECORDS SUMMARY | 2024-02-05 06:48 | External Medical Summary ---
Author Name Unknown Address Unknown Organization K1F:LABORATORY [facility] - [address] [place] [address] Laboratory Report Ordering Provider Test Date Status SUZY BUTTS 01/28/2024 13:38:46 Final Less than 0.5 ng/mL: Low ris k for progression to sepsis. Review patients condition for localized infections.

0.5 to 2.0 ng/mL: Intermediate risk for progresion to sepsis. Review underlying conditions. Recommend repeat PCT after 6 hours has elapsed.

Greater than 2.0 ng/mL: high risk for progression to sepsis unless other causes are known. Observation Date Value Abnormality Reference (Units ) Status Procalcitonin [Mass/volume] in Serum or Plasma by Immunoassay 01/28/2024 13:38:46 0.24 Above high normal <0.10 (ng/mL) Final Performing Location LABORATORY [facility] - [address] [place] [address]
--- OUTSIDE RECORDS SUMMARY | 2024-02-05 06:48 | External Medical Summary ---
Author Name Unknown Address Unknown Organization K1F:LAB[facility]ATORY [facility] - [address] [place] [address] Laboratory Report Ordering Provider Test Date Status JENS SARAH 01/29/2024 08:06:00 Final Observation Date Value Abnormality Reference (Units ) Status Magnesium 01/29/2024 08:06:00 2.3 1.5-2.6 (m g/dL) Final Performing Location LAB[facility]ATORY [facility] - [address] [place] [address]
--- OUTSIDE RECORDS SUMMARY | 2024-02-05 06:48 | External Medical Summary ---
Author Name Unknown Address Unknown Organization K01:LABORATORY [facility] - [address] [facility] [place] [address] Laboratory Report Ordering Provider Test Date Status SUZY BUTTS 01/28/2024 13:38:46 Final Observation Date Value Abnormality Reference (Units ) Status Hep A IgM 01/28/2024 13:38:46 Negative Negative Final Hep B Core IgM 01/28/2024 13:38:46 Negative Negat terry Final Hep B surface Ag 01/28/2024 13:38:46 Negative Neg ative Final Hep C Ab 01/28/2024 13:38:46 Negative Negative Final Performing Location LABORATORY [facility] - [address] [place] [address]
--- OUTSIDE RECORDS SUMMARY | 2024-02-05 06:48 | External Medical Summary ---
Author Name Unknown Address Unknown Organization K1F:LABORATORY [facility] - [address] [place] [address] Laboratory Report Ordering Provider Test Date Status SUZY BUTTS 01/28/2024 13:38:46 Final Observation Date Value Abnormality Reference (Units ) Status CRP, low-sensitivity 01/28/2024 13:38:46 5 <=5 (mg/L) Final Performing Location LABORATORY [facility] - [address] [place] [address]
--- OUTSIDE RECORDS SUMMARY | 2024-02-05 06:48 | External Medical Summary ---
Author Name Unknown Address Unknown Organization : Laboratory Report Ordering Provider Test Date Status STACIE WOOTEN 01/28/2024 17:06:29 Final Observation Date Value Abnormality Reference (Units ) Status PETH 16:0/18:1 (POPETH) 01/28/2024 17:06:29 >400 Above high normal <20 (ng/mL) Final PETH 16:0/18:2 (PLPETH) 01/28/2024 17:06:29 >400 Above high normal <20 (ng/mL) Final PETH COMMENTS 01/28/2024 17:06:29 SEE BELOW Final See LDT Notes
Notes and Comments
This drug testing is for medical treatment only.
Analysis was performed as non-forensic testing and
these results should be used only by healthcare
providers to render diagnosis or treatment, or to
monitor progress of medical conditions.
LDT Notes:
These tests were developed and their analytical
performance characteristics have been determined
by [facility]. They have not been cleared
or approved by the FDA. These assays have been
validated pursuant to the CLIA regulations and are
used for clinical purposes.
Healthcare Providers needing Interpretation
assistance, please contact us at [phone]
( )M-F, 8am to 10pm EST

Test Performed at:
[facility]
[address]
[place] [address]
Reji Mirza M.D., Ph.D.,Director of Laboratories Performing Location
--- OUTSIDE RECORDS SUMMARY | 2024-02-05 06:48 | External Medical Summary ---
Author Name Unknown Address Unknown Organization K1F:LABORATORY [facility] - [address] [place] [address] Laboratory Report Ordering Provider Test Date Status SUZY BUTTS 01/28/2024 13:38:46 Final Anticoagulation may affect t esting. Refer to [employer] Test Catalog for a list of effects. Observation Date Value Abnormality Reference (Units ) Status aPTT panel - Platelet poor plasma 01/28/2024 13:38:46 32 21-38 (seconds) Final Performing Location LABORATORY [facility] - [address] [place] [address]
--- OUTSIDE RECORDS SUMMARY | 2024-02-05 06:48 | External Medical Summary ---
Author Name Unknown Address Unknown Organization K1F:LABORATORY [facility] - [address] [place] [address] Laboratory Report Ordering Provider Test Date Status JENS SARAH 01/30/2024 05:46:00 Final Observation Date Value Abnormality Reference (Units ) Status Magnesium 01/30/2024 05:46:00 2.2 1.5-2.6 (m g/dL) Final Performing Location LABORATORY [facility] - [address] [place] [address]
--- OUTSIDE RECORDS SUMMARY | 2024-02-05 06:48 | External Medical Summary ---
Author Name Unknown Address Unknown Organization K1F:LABORATORY [facility] - [address] [place] [address] Laboratory Report Ordering Provider Test Date Status BECKIESUZY 01/28/2024 13:38:46 Final Observation Date Value Abnormality Reference (Units ) Status Ethanol 01/28/2024 13:38:46 Negative Negative Final Performing Location LABORATORY [facility] - [address] [place] [address]
--- OUTSIDE RECORDS SUMMARY | 2024-02-05 06:48 | External Medical Summary ---
Author Name Unknown Address Unknown Organization K1F:LABORATORY [facility] - [address] [place] [address] Laboratory Report Ordering Provider Test Date Status JENS SARAH 01/29/2024 08:06:00 Final Observation Date Value Abnormality Reference (Units ) Status Albumin 01/29/2024 08:06:00 2.5 Below low normal 3.8-5.0 (g/dL) Final AST (Aspartate aminotransferase) 01/29/2024 08:06:00 327 Above high normal 10-35 (U/L) Final Alk Phos 01/29/2024 08:06:00 638 Above high normal 35-130 (U/L) Final ALT (Alanine aminotransferase) 01/29/2024 08:06:00 170 Above high normal 10-35 (U/L) Final Bilirubin, Total 01/29/2024 08:06:00 6.1 Above high normal <=1.2 (mg/dL) Final Bilirubin, Direct 01/29/2024 08:06:00 4.8 Above high normal 0.0-0.3 (mg/dL) Final Protein 01/29/2024 08:06:00 5.8 Below low normal 6.0-8.3 (g/dL) Final Performing Location LABORATORY [facility] - [address] [place] [address]
--- OUTSIDE RECORDS SUMMARY | 2024-02-05 06:48 | External Medical Summary ---
Author Name Unknown Address Unknown Organization K1F:LABORATORY [facility] - [address] [place] [address] Laboratory Report Ordering Provider Test Date Status SUZY BUTTS 01/28/2024 13:38:46 Final Exclude Heart Failure: <300 pg/mL
Diagnose Heart Failure:
Age <50 yr: >450 pg/mL
50-75 yr: >900 pg/mL
>75 yr: >1800 pg/mL
GFR is 30-59 mL/min: >1200 pg/mL or Age- adjusted values
GFR <30 mL/min: do not use, not reliable

Prognostic threshold: 1000 pg/mL Observation Date Value Abnormality Reference (Units ) Status BNP, Pro-hormone 01/28/2024 13:38:46 303 Above high no rmal <300 (pg/mL) Final Performing Location LABORATORY [facility] - [address] [place] [address]
--- OUTSIDE RECORDS SUMMARY | 2024-02-05 06:48 | External Medical Summary | Summary of Care ---
Author Name Unknown Organization [facility] Address [address] [place] [address] Phone [phone] Care Team Providers Care Ad Operations Associate Name Role Phone Unavailable Primary Care Provider Unavailabl e Reason for Visit * Reason Onset Date Comments Hospital Follow-Up 01/30/2024 Encounter Details Date Type Department Care Team ([facility] Contact Info) Description 01/30/2024 Telephone [facility] Gastroenterology [address] [facility] [place] [address] Rebeca Ross CRNP [address] [place] [address] Hospital Follow-Up Allergies Active Allergy Reactions Criticality [...] mgIndications:Asthma with COPD (chronic obstructive pulmonary disease) ([facility]) 2.5 mg NEBULIZER PRN 02/04/2023 02/04/2024 Active Albuterol Sulfate (Proventil) (5 MG/ML) 0.5% *conc* inhalation solution 2.5 mgIndications:Asthma with COPD (chronic obstructive pulmonary disease) ([facility]) 2.5 mg NEBULIZER PRN 02/04/2023 02/04/2024 Active [...] laparoscopic sleeve gastrectomy 04/19/2015 Overview: Performed at [facility] in 04/2015 Insomnia 12/28/2013 [...] Cocaine abuse in remission 01/01/2018 0 01/02/2018 [place] toxicity 12/31/2017 01/01/2018 Suicidal ideation 12/31/2017 01/29/2024 [...] encounter Miscellaneous Notes * Telephone Encounter - Rebeca Ross CRNP - 01/30/2024 1:53 PM EDT Seen in consult at [facility]. Please offer patient outpatient Hepatology appointment for PVC, alcoholic hepatitis. However, it may be that her insurance does not participate with [facility] in an outpatient setting.Patient tells me she has been trying to get in with [facility]. She tells me that she has a [facility] insurance product. documented in this [...] 03/20/2009 Depression Monitoring 01/04/2023 01/04/2022 COVID-19 Vaccine (1 - 2022-24 season) 2023 DISCUSS TOBACCO CESSATION (REFER TO [...] this encounter Medical Devices Implanted Type Area Mechanic/Welder Device Identifier Shelf Expiration Date Model / Serial / Lot [place] Hand Plating Variax 2 1.7mm S Locking Plates Straight Implanted:Qty: 1 on 09/04/2021 by Rip Brown, DO at OR [facility] Right: Hand SANDI : TRAUMA [id number] / / Screw Nlk V2 T5 1.7mm L7mm - [id number] Implanted:Qty: 2 on 09/04/2021 by Rip Brown DO at OR [facility] Right: Hand SANDI : TRAUMA [id number] / / Screw Nlk V2 T5 1.7mm L8mm - [id number] Implanted:Qty: 3 on 09/04/2021 by Rip Brown DO at OR [facility] Right: Hand SANDI : TRAUMA [id number] / / Screw Nlk V2 T5 1.7mm L10mm - [id number] Implanted:Qty: 2 on 09/04/2021 by Rip Brown DO at OR [facility] Right: Hand SANDI : TRAUMA [id number] / / documented as of this encounter [...]
--- OUTSIDE RECORDS SUMMARY | 2024-02-05 06:48 | External Medical Summary ---
Author Name Unknown Address Unknown Organization K1F:LABORATORY [facility] - [address] [facility] [address] Laboratory Report Ordering Provider Test Date Status SUZY BUTTS 01/28/2024 13:38:46 Final hCG can serve as a screening assay [...] for postmenopausal women is <= 7 mIU/mL. Observation Date Value Abnormality Reference (Units ) Status Choriogonadotropin.intact +Beta subunit [Units/volume] in Serum or Plasma 01/28/2024 13:38:46 <0.3 <=1.0 (mIU/mL) Final Performing Location LABORATORY [facility] - [address] [facility] [address]
--- OUTSIDE RECORDS SUMMARY | 2024-02-05 06:48 | External Medical Summary ---
Author Name Unknown Address Unknown Organization K1F:LABORATORY [facility] - [address] [place] [address] Laboratory Report Ordering Provider Test Date Status SUZY BUTTS 01/28/2024 17:06:29 Final Observation Date Value Abnormality Reference (Units ) Status Lactic Acid 01/28/2024 17:06:29 1.2 0.4-2.0 (mmol/L) Final Performing Location LABORATORY [facility] - [address] [place] [address]
--- OUTSIDE RECORDS SUMMARY | 2024-02-05 06:48 | External Medical Summary ---
Author Name Unknown Address Unknown Organization : Laboratory Report Ordering Provider Test Date Status JENS SARAH 01/29/2024 09:10:32 Final Observation Date Value Abnormality Reference (Units ) Status Glucose Point of Care 01/29/2024 09:10:32 92 70-120 (mg/dL) Final Performing Location
--- OUTSIDE RECORDS SUMMARY | 2024-02-05 06:48 | External Medical Summary ---
Author Name Unknown Address Unknown Organization K1F:LABORATORY [facility] - [address] [place] [address] [place] [address] Laboratory Report Ordering Provider Test Date Status STACIE WOOTEN 01/28/2024 18:21:44 Final Cutoff Concentrations:
Drug Level
Amphetamines 500 ng/mL
Benzodiazepines 100 ng/mL
Cannabinoids 50 ng/mL
Cocaine Metabolite 150 ng/mL
Fentanyl 1 ng/mL
Hydrocodone / Hydromorphone 300 ng/mL
Methadone Metabolite 100 ng/mL
Morphine / Codeine 300 ng/mL
Oxycodone / Oxymorphone 100 ng/mL

Screening results are presumptive and can only be used for medical purposes. Positive screening results are reflexed to confirmatory testing. Observation Date Value Abnormality Reference (Units ) Status Amphetamines, Urine screen 01/28/2024 18:21:44 Negative Negative Final Benzodiazepines, Urine screen 01/28/2024 18:21:44 Negative Negative Final Cannabinoids, Urine screen 01/28/2024 18:21:44 Positive Abnormal Negative Final Cocaine Metabolite, Urine screen 01/28/2024 18:21:44 Negative Negative Final fentaNYL [Presence] in Urine by Screen method 01/28/2024 18:21:44 Negative Negative Final HYDROcodone [Presence] in Urine by Screen method 01/28/2024 18:21:44 Negative Negative Final 0-Cvxpmunfsr-4,5-Dimeth yl-3,3-Diphenylpyrrolid ine (EDDP) [Presence] in Urine 01/28/2024 18:21:44 Negative Negative Final Opiates, Urine screen 01/28/2024 18:21:44 Negative Negative Final oxyCODONE [Presence] in Urine by Screen method 01/28/2024 18:21:44 Negative Negative Final Performing Location [facility] [address] [facility] [place] [address]
--- OUTSIDE RECORDS SUMMARY | 2024-02-05 06:48 | External Medical Summary ---
Author Name Unknown Address Unknown Organization K1F:LABORATORY [facility] - [address] [place] [address] Laboratory Report Ordering Provider Test Date Status SUZY BUTTS 01/28/2024 13:38:46 Final Warfarin Therapy
INR: 2 .0-3.0 conventional anticoagulation
INR: 2.5- 3.5 high intensity anticoagulation Observation Date Value Abnormality Reference (Units ) Status PT 01/28/2024 13:38:46 12.5 11.6-15.2 (seconds) Final INR 01/28/2024 13:38:46 0.9 0.8-1.2 Final Performing Location LABORATORY [facility] - [address] [place] [address]
--- OUTSIDE RECORDS SUMMARY | 2024-02-05 06:49 | External Medical Summary ---
Author Name Unknown Address Unknown Organization K01:LABORATORY [facility] - [address] [place] [address] Laboratory Report Ordering Provider Test Date Status BETHJADA 12/30/2023 13:55:01 Final Follicular phase: 2.4-12.6 m IU/mL
Ovulation phase: 14.0-95.6 mIU/mL
Luteal phase: 1.0-11.4 mIU/mL
Postmenopausal: 7.7-58.5 mIU/mL Observation Date Value Abnormality Reference (Units ) Status LH 12/30/2023 13:55:01 4.4 (mIU/mL) Final Performing Location LABORATORY [facility] - [address] [place] [address]
--- OUTSIDE RECORDS SUMMARY | 2024-02-05 06:49 | External Medical Summary | Summary of Care ---
Author Name Unknown Organization [facility] Address [address] [place] [address] Phone [phone] Care Team Providers Care Java Development Team Lead Name Role Phone Unavailable Primary Care Provider Unavailabl e Reason for Visit * Reason Comments Outpatient Testing Encounter Details Date Type Department Care Team ([facility] st Contact Info) Description 12/30/2023 1:50 PM EDT Laboratory Laboratory, [facility] [address] [place] [id number] [facility], Lab [address] [place], [place] [id number] Cholangitic cirrhosis (HCC); Absence of menstruation Allergies Active Allergy Reactions Criticality Noted Date [...] as of this encounter (statuses as of 12/30/2023) Medications Medication Sig Dispensed Refills Start Date [...] Use as directed 1 Each 01/12/2018 Active Simethicone (BICARSIM) 80 MG Tablet Take 1 Tab by mouth every 6 hours as needed for Gas. 30 Tab 01/12/2018 Active Additional Information Patient not taking.Reported on 08/05/2023 Metoclopramide HCl 10 MG Oral Tablet Take [...] a day as needed for Anxiety. Active Tiotropium [place]-Olodaterol 2.5-2.5 MCG/ACT Inhalation Aerosol Solution (Stiolto Respimat) Inhale 2 Puffs by mouth in the morning. 4 g 11 10/08/2022 Active Additional Information Patient not taking.Reported on 08/05/2023 Ursodiol 300 MG Oral Capsule (Actigall)Indication s:Primary biliary cholangitis (HCC) TAKE BY MOUTH 1 CAPSULE IN THE MORNING AND 1 CAPSULE AT NOON AND 1 CAPSULE BEFORE BEDTIME. 270 Capsule 3 11/15/2022 Active Additional Information Patient taking differently: TAKES BY MOUTH 2 CAPSULE IN THE MORNING AND 1 CAPSULE BEFORE BEDTIME., Reported on 08/05/2023 Trelegy Ellipta 100-62.5-25 MCG/ACT Aerosol Powder Breath Activated (Fluticasone-Umeclid inium-Vilanterol) Inhale 1 Puff by mouth in the morning. 60 Each 6 02/04/2023 Active buPROPion HCl 75 MG Oral Tablet (Wellbutrin) Take 1 Tablet by mouth in the morning. 05/28/2023 Active Prazosin HCl 5 MG Oral Capsule (Minipress) Take 1 Capsule by mouth. 07/30/2023 Active lamoTRIgine 25 MG Oral Tablet (LaMICtal) 07/30/2023 Active guanFACINE HCl 2 MG Oral Tablet Take 1 Tablet by mouth in the morning and 1 Tablet before bedtime. 05/28/2023 Active Propranolol HCl 10 MG Oral Tablet (Inderal) TAKE 1 TABLET BY MOUTH TWICE A DAY NEEDED FOR PANIC ATTACKS 07/15/2023 Active traZODone HCl 100 MG Oral Tablet (Desyrel) 06/07/2023 Active Ziprasidone HCl 80 MG Oral Capsule (Geodon) Take 1 Capsule by mouth in the morning. 05/28/2023 Active Hospital, Clinic, or Other Facility Administered Medication Ordered Dose Route Frequency Start Date End Date Status Albuterol Sulfate (Proventil) (2.5 MG/3ML) 0.083% inhalation solution 2.5 mgIndications:Asthma with COPD (chronic obstructive pulmonary disease) ([facility]) 2.5 mg NEBULIZER PRN 02/04/2023 02/04/2024 Active Albuterol Sulfate (Proventil) (5 MG/ML) 0.5% *conc* inhalation solution 2.5 mgIndications:Asthma with COPD (chronic obstructive pulmonary disease) ([facility]) 2.5 mg NEBULIZER PRN 02/04/2023 02/04/2024 Active documented as of this encounter (statuses as of 12/30/2023) Active Problems Problem Noted Date Diagnosed Date Asthma, moderate persistent 10/02/2022 Alcohol dependence with intoxication 01/05/2022 C. difficile colitis 11/02/2021 Colitis, acute 11/01/2021 Chronic post-traumatic stress disorder (PTSD) History of OCD (obsessive compulsive disorder) 0 01/08/2018 Elevated alkaline phosphatase level 01/06/2018 Borderline personality disorder 01/02/2018 Elevated liver enzymes 01/02/2018 Cannabis dependence 01/02/2018 Cocaine abuse 01/02/2018 Suicidal ideation 12/31/2017 Iron deficiency anemia 10/13/2017 S/P gastric bypass 05/23/2016 Overview: On 04/26/16 she under went laparoscopic revision of sleeve gastrectomy to RYGBP, UGI endoscopy, laparoscopic bilateral truncal vagotomy, laparoscopic primary hiatal hernia repair by Dr. Saavedra. 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 Overview: Performed at [facility] in 04/2015 Insomnia 12/28/2013 Overview: ICD-10 update [...] as of this encounter (statuses as of 12/30/2023) Resolved Problems Problem Noted Date Diagnosed Date Resolved Date Cocaine abuse in remission 01/01/2018 0 01/02/2018 [place] toxicity 12/31/2017 01/01/2018 Dysphagia 07/31/2010 05/23/2016 Overview: With esophageal stricture [...] as of this encounter (statuses as of 12/30/2023) Immunizations Name Administration Dates Next Due PPD 09/04/2017,08/13/2017 Pneumococcal Polysaccharide PPV23 (Pneumovax) 10/23/2011 Seasonal Influenza, Split, I IV3, With Preserve, Inj 09/04/2012,05/25/2010,05/01/2009 TDAP (age 11 and older)(Adacel) 10/23/2011,03/20 documented as of this encounter Social History Tobacco Use Types Packs/Day Years Used Date Smoking Tobacco: Every Day Cigarettes 1 20 Cigars Smokeless Tobacco: Never Comments:10/02/22 currently l ittle cigars-smokes 0.5 ppd Alcohol Use Standard Drinks/Week Comments Yes 6 (1 standard drink = 0.6 oz pur e alcohol) daily PHQ-2 Answer Date Recorded PHQ Adult Total Score 20 01/04/2022 Sex and Gender Information Value Date Recorded Sex Assigned at Not on file Gender Identity Not on file Sexual Orientation Not on file Job Start Date Occupation Industry Not on file Not on file Not on file documented as of this encounter Functional Status Functional Status Response Date of Assess ment Are you deaf or do you have serious difficulty hearing? No-has hearing loss in left ear 01/04/2022 Are you blind or do you have serious difficulty seeing, even when wearing glasses? No 01/04/2022 Do you have serious difficul ty walking or climbing stairs? (5 years old or older) No 01/04/2022 Do you have difficulty dress ing or bathing? (5 years old or older) No 01/04/2022 Because of a physical, menta l, or emotional condition, do you have difficulty doing errands alone such as visiting a doctor s office or shopping? (15 years old or older) No 01/04/2022 Cognitive Status Response Date of Assessm ent Because of a physical, menta l, or emotional condition, do you have serious difficulty concentrating, remembering, or making decisions? (5 years old or older) Yes 01/04/2022 documented as of this encounter Plan of Treatment Upcoming Encounters Date Type Department Care Team (Late st Contact Info) Description 01/21/2024 10:00 AM EDT [address] [place] [phone] 01/21/2024 10:30 AM EDT PulmDiagnostic Pulmonary Function Lab, [address] [address] [facility] [address] [facility] [address] 01/21/2024 11:00 AM EDT PulmDiagnostic Pulmonary Function Lab, [address] [place] [address] [facility], Pulm Function Room [address] [place], [place] [address] [address] 01/28/2024 9:20 AM EDT Office Visit Pulmonary Medicine Par[place]tt [facility] Lopezwn [address] [place] [phone] Colby Anaya MD [address] [place] [address] Pending Results Name Type Priority Associated Diagnoses Date /Time COMPREHENSIVE METABOLIC PANEL Lab Routine Cholangitic cirrhosis (HCC) 12/30/2023 1:55 PM EDT ESTRADIOL Lab Routine Absence of menstruation 12/30/2023 1:55 PM EDT FSH Lab Routine Absence of menstruation 12/30/2023 1:55 PM EDT LH Lab Routine Absence of menstruation 12/30/2023 1:55 PM EDT Scheduled Procedures Name Priority Associated Diagnoses Date/Ti [...] - Td or Tdap) 10/22/2021 10/23/2011, 03/20/2009 Depression, Most Recent Score >= 10 (will fire each visit until score < 10) 01/05/2022 01/04/2022 COVID-19 Vaccine ( season) 2023 DISCUSS TOBACCO CESSATION (REFER TO SMARTSET #4731) 02/05/2024 02/04/2023, 10/02/2022 Influenza Vaccine (FLU shot) (Season Ended) 2024 09/04/2012, 05/25/2010, 05/01/2009 Diabetes Screening 07/28/2026 07/28/2023, 0 09/10/2022, 04/15/2022, Additional history exists Lipid Panel 01/04/2027 01/04/2022, 01/09/2018 GARDASIL-HPV IMMUNIZATION SERIES Aged Out No longer eligible based on patient's age to complete this topic MENINGOCOCCAL (MENACTRA/MENVEO) Aged Out No longer eligible based on patient's age to complete this topic documented as of this encounter Medical Devices Implanted Type Area Graphic Illustrator Device Identifier Shelf Expiration Date Model / Serial / Lot [place] Hand Plating Variax 2 1.7mm S Locking Plates Straight Implanted:Qty: 1 on 09/04/2021 by Rip Brown, DO at OR [facility] Right: Hand AVELINA : TRAUMA [id number] / / Screw Nlk V2 T5 1.7mm L7mm - [id number] Implanted:Qty: 2 on 09/04/2021 by Rip Brown, DO at OR [facility] Right: Hand AVELINA : TRAUMA [id number] / / Screw Nlk V2 T5 1.7mm L8mm - [id number] Implanted:Qty: 3 on 09/04/2021 by Rip Brown, DO at OR [facility] Right: Hand AVELINA : TRAUMA [id number] / / Screw Nlk V2 T5 1.7mm L10mm - [id number] Implanted:Qty: 2 on 09/04/2021 by Rip Brown, DO at OR [facility] Right: Hand AVELINA : TRAUMA [id number] / / documented as of this encounter Visit Diagnoses Diagnosis Cholangitic cirrhosis (HCC) Biliary cirrhosis Absence of menstruation documented in this encounter Advance Directives * Full Code (Latest Code Status on File) Date Activated Date Inactivated Comments 01/04/2022 11:30 [...] Full Code Date Activated Date Inactivated Comments 01/01/2018 3:59 PM 01/02/2018 2:21 PM This order r eflects the patients wishes and were consensually agreed upon.
--- OUTSIDE RECORDS SUMMARY | 2024-02-05 06:49 | External Medical Summary ---
Author Name Unknown Address Unknown Organization K01:LABORATORY [facility] - [address] [place] [address] Laboratory Report Ordering Provider Test Date Status JADA CAMPOS 12/30/2023 13:55:01 Final Observation Date Value Abnormality Reference (Units ) Status Follitropin [Units/volume] in Serum or Plasma by 2nd IRP 12/30/2023 13:55:01 8.0 (mIU/mL) Final Follicular Phase: 3.5- 12.5 mIU/mL
Ovulation Phase: 4.7- 21.5 mIU/mL
Luteal Phase: 1.7- 7.7 mIU/mL
Postmenopausal: 25.8-134.8 mIU/mL Performing Location LABORATORY [facility] - [address] [place] [address]
--- OUTSIDE RECORDS SUMMARY | 2024-02-05 06:49 | External Medical Summary | Summary of Care ---
Author Name Unknown Organization [facility] Address [address] [place] [address] Phone [phone] Care Team Providers Care Engineering Instructor Name Role Phone Unavailable Primary Care Provider Unavailabl e Reason for Visit * Reason Comments Pulmonary Function Test Encounter Details Date Type Department Care Team ([facility] st Contact Info) Description 01/21/2024 10:30 AM EDT PulmDiagnostic Pulmonary Function Lab, [facility] [address] [place] [address] Gl, Pulm Function Room 1 [address] [place], [place] [id number] Asthma with COPD (chronic obstructive pulmonary disease) ([facility])* Allergies Active Allergy Reactions Criticality Noted Date [...] as of this encounter (statuses as of 01/21/2024) Medications Medication Sig Dispensed Refills Start Date [...] day as needed for Anxiety. Active Tiotropium [place]-Olodaterol 2.5-2.5 MCG/ACT Inhalation Aerosol Solution (Stiolto Respimat) [...] the morning. 60 Each 6 02/04/2023 Active Additional Information Patient not taking.Reported on 01/21/2024 buPROPion HCl 75 MG Oral Tablet (Wellbutrin) [...] as of this encounter (statuses as of 01/21/2024) Active Problems Problem Noted Date Diagnosed Date [...] laparoscopic sleeve gastrectomy 04/19/2015 Overview: Performed at [facility] in 04/2015 Insomnia 12/28/2013 Overview: ICD-10 update [...] as of this encounter (statuses as of 01/21/2024) Resolved Problems Problem Noted Date Diagnosed Date Resolved Date Cocaine abuse in remission 01/01/2018 0 01/02/2018 [place] toxicity 12/31/2017 01/01/2018 Dysphagia 07/31/2010 05/23/2016 Overview: [...] as of this encounter (statuses as of 01/21/2024) Immunizations Name Administration Dates Next Due PPD [...] Yes 01/04/2022 documented as of this encounter Progress Notes * Gail Kelly, CHORUS DANCER - 01/21/2024 10:42 AM EDT Patient completed 6 minute walk on room air. Patient needed a break for SOB. documented in this encounter Plan of Treatment Upcoming Encounters Date Type Department Care Team (Late st Contact Info) Description 01/28/2024 9:20 AM EDT Office Visit Pulmonary Medicine Carolyn Santacruz [address] [phone] Colby Anaya MD [address] [address] Scheduled Procedures Name Priority Associated Diagnoses Date/Ti [...] Ended) 2024 09/04/2012, 05/25/2010, 05/01/2009 Diabetes Screening 12/29/2026 12/30/2023, 1 09/28/2022, 09/10/2022, Additional history exists Lipid Panel 01/04/2027 01/04/2022, 01/09/2018 GARDASIL-HPV IMMUNIZATION SERIES Aged Out No longer eligible based on patient's age to complete this topic MENINGOCOCCAL (MENACTRA/MENVEO) Aged Out No longer eligible based on patient's age to complete this topic documented as of this encounter Medical Devices Implanted Type Area Charge Lpn Device Identifier Shelf Expiration Date Model / Serial / Lot [place]ont Hand Plating Variax 2 1.7mm S Locking Plates Straight Implanted:Qty: 1 on 09/04/2021 by Rip Brown DO at OR [facility] Right: Hand SANDI : TRAUMA [id number] / / Screw Nlk V2 T5 1.7mm L7mm - [id number] Implanted:Qty: 2 on 09/04/2021 by Rip Brown DO at OR [facility] Right: Hand SANDI : TRAUMA [id number] / / Screw Nlk V2 T5 1.7mm L8mm - [id number] Implanted:Qty: 3 on 09/04/2021 by Rip Brown DO at OR [facility] Right: Hand SANDI : TRAUMA [id number] / / Screw Nlk V2 T5 1.7mm L10mm - [id number] Implanted:Qty: 2 on 09/04/2021 by Rip Brown DO at OR [facility] Right: Hand SANDI : TRAUMA [id number] / / documented as of this encounter Visit Diagnoses Diagnosis Asthma with COPD (chronic obstructive pulmonary disease) (HCC)- Primary Chronic obstructive asthma, unspecified documented in this encounter Advance Directives * [...]
--- OUTSIDE RECORDS SUMMARY | 2024-02-05 06:49 | External Medical Summary | Summary of Care ---
Author Name Unknown Organization [facility] Address [address] [place] [address] Phone [phone] Care Team Providers Care Java Designer Name Role Phone Unavailable Primary Care Provider Unavailabl e Reason for Visit * Reason Comments Lump * Auth/Cert Specialty Diagnoses / Procedures Referred By Es t Referred To Contact Referral ID Status Reason Start Date Expiration Date Visits Re quested Visits Authorized [id number] Encounter Details Date Type Department Care Team (Late st Contact Info) Description 09/11/2023 3:07 PM EST - 09/11/2023 3:34 PM EST Emergency [facility] Emergency Department ([facility]) [address] [place] [address] Rip Morris MD [address] [place] [address] Hematoma of left thigh, initial encounter (Primary Dx) Discharge Disposition: Home - Self Care Allergies [...] as of this encounter (statuses as of 09/12/2023) Medications Medication Sig Dispensed Refills Start Date End Date Status albuterol (PROVENTIL HFA) 108 (90 BASE) MCG/ACT inhaler Inhale 2 Puffs by mouth every 4 hours as needed for Wheezing. 1 Inhaler 0 11/06/2017 Active albuterol sulfate (PROVENTIL) (5 MG/ML) 0.5% nebulizer solution Inhale 2.5 mg via nebulizer every 4 hours as needed for Wheezing. 20 mL 12 01/12/2018 Active Nebulizers (NEBULIZER COMPRESSOR) MISCIndications:Asth ma, allergic Use as directed 1 Each 0 01/12/2018 Active Simethicone (BICARSIM) 80 MG Tablet Take 1 Tab by mouth every 6 hours as needed for Gas. 30 Tab 0 01/12/2018 Active Additional Information Patient not taking.Reported on 08/05/2023 Metoclopramide HCl 10 MG Oral Tablet Take 1 Tablet by mouth 4 times a day as needed (abdominal cramping). 0 Active Ondansetron 4 MG Oral Tablet Disintegrating (Zofran) Place 1 Tablet (4 mg) every 8 hours as needed on tongue for Nausea. dissolve on tongue. 18 Tablet 0 09/05/2021 Active Omeprazole 40 MG Oral Capsule Delayed Release (PriLOSEC) Take 1 Capsule by mouth in the morning. 0 Active clonazePAM 1 MG Oral Tablet Take 1 Tablet by mouth 3 times a day as needed for Anxiety. 0 Active Tiotropium [place]-Olodaterol 2.5-2.5 MCG/ACT Inhalation Aerosol Solution (Stiolto Respimat) [...] 1 Tablet by mouth in the morning. 0 05/28/2023 Active Prazosin HCl 5 MG Oral Capsule (Minipress) Take 1 Capsule by mouth. 0 07/30/2023 Active lamoTRIgine 25 MG Oral Tablet (LaMICtal) 0 07/30/2023 Active guanFACINE HCl 2 MG Oral Tablet Take 1 Tablet by mouth in the morning and 1 Tablet before bedtime. 0 05/28/2023 Active Propranolol HCl 10 MG Oral Tablet (Inderal) TAKE 1 TABLET BY MOUTH TWICE A DAY NEEDED FOR PANIC ATTACKS 0 07/15/2023 Active traZODone HCl 100 MG Oral Tablet (Desyrel) 0 06/07/2023 Active Ziprasidone HCl 80 MG Oral Capsule (Geodon) Take 1 Capsule by mouth in the morning. 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) 2.5 mg NEBULIZER PRN 10/02/2022 10/02/2023 Active Albuterol Sulfate (Proventil) (2.5 MG/3ML) 0.083% inhalation solution 2.5 mgIndications:Asthma with COPD (chronic obstructive pulmonary disease) 2.5 mg NEBULIZER PRN 02/04/2023 02/04/2024 Active Albuterol Sulfate (Proventil) (5 MG/ML) 0.5% *conc* inhalation solution 2.5 mgIndications:Asthma with COPD (chronic obstructive pulmonary disease) 2.5 mg NEBULIZER PRN 02/04/2023 02/04/2024 Active documented as of this encounter (statuses as of 09/12/2023) Active Problems Problem Noted Date Diagnosed Date [...] 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5 ppd Alcohol Use [...] Sign Reading Time Taken Comments Blood Pressure 143/84 09/11/2023 3:01 PM EST Pulse 80 09/11/2023 3:01 PM EST Temperature 36.5 C (97.7 F) 09/11/2023 3:01 PM ES T Respiratory Rate 20 09/11/2023 3:01 PM EST Oxygen Saturation 97% 09/11/2023 3:01 PM EST Inhaled Oxygen Concentration - - Weight 59.9 kg (132 lb) 09/11/2023 3:01 PM EST Height 162.6 cm (5' 4") 09/11/2023 3:01 PM EST Body Mass Index 22.66 09/11/2023 3:01 PM EST documented in this encounter Functional Status Functional [...] Yes 01/04/2022 documented as of this encounter Discharge Instructions * Discharge Instructions* Rip Morris MD - 09/11/2023 3:19 PM EST Please use an jaxon wrap for compression and support. Continue to take tylenol and motrin as needed for discomfort. Please monitor for any signs of infection including redness, warmth, drainage and return to the ED immediately if you develop any concerning symptoms. documented in this encounter ED Notes * Rip Morris MD - 09/11/2023 3:09 PM EST HISTORY OF PRESENT ILLNESS Ginger Okeefe is a 43 year old female who presents to the ED for evaluation of Lump. The patientwas seen at 09/11/23 1508. Patient here with painful swelling on the left lateral thigh. She fell about 2 weeks ago and landed on a metal bar on her sofa with her left hip/thigh. Immediately noticed a large swollen area that was painful. States that initially it was the size ofa grapefruit, is now about the size of a baseball. It has been getting smaller, but is still rathernoticeable and she is concern that it may be Something dangerous. Denies redness, warmth, drainage. Denies fevers or chills. She is able to walk, denies numbness or tingling in her leg. Denies anticoagulant use. Review of Systems Musculoskeletal: Positive for arthralgias (Left hip/thigh pain and swelling). The patient's allergies, past history, and medications were reviewed. PHYSICAL EXAM Initial Vitals (see all): BP 143/84 | Pulse 80 | Resp 20 | Temp 97.7 | O2 97 %Weight 59.88 kg | Height 162.6 cm | BMI 22.66 kg/m2 Initial Pain Assessment (see all): 7 (severe pain)/10, location: left thigh ([facility] Adult Scale 0-10) Physical Exam Constitutional: General: She is not in acute distress. Appearance: Normal appearance. She is not ill-appearing, toxic-appearing or diaphoretic. Musculoskeletal: Comments: Approximately 6 cm hematoma present on the left lateral proximal thigh. No overlying erythema, warmth, drainage. There is tenderness to palpation. Distal neurovascular exam intact in the left lower extremity. Neurological: Mental Status: She is alert. PROCEDURES AND TREATMENTS ED Orders | ED Results MEDICAL DECISION MAKING Nursing notes and vital signs were reviewed. ED Course as of 09/11/23 1522 Evelyn Sep 11, 2023 1509 ED Triage Notes Pt fell over two weeks ago and injured her left thigh. Pt has a lump there now that she is concerned about d/t it still being there and painful. Pt did not take pain medication CALENDER OPERATOR. [MM] 1509 BP: 143/84 [MM] 1509 Pulse: 80 [MM] 1509 Resp: 20 [MM] 1509 SpO2: 97 % [MM] 1509 Temp: 36.5 C (97.7 F) [MM] ED Course User Index [MM] Rip Morris MD Patient here with large, but improving hematoma on the left proximal lateral thigh. Distal neurovascular exam intact. No features concerning for infection at this time. Low concern for bony injury, given that she has been walking on it for 2 weeks with minimal discomfort. No x-ray obtained today. Patient given an Jaxon wrap. Recommended anti- inflammatories, ice, heat, compression. It should spontaneously resolve over the next 4 weeks. Recommended PCP follow-up. Return precautions given. Clinical Impressions Hematoma of left thigh, initial encounter Disposition Discharged. The patient's condition at disposition was: stable. Rip Morris * Farhad Chacko RN - 09/11/2023 3:04 PM EST Pt fell over two weeks ago and injured her left thigh. Pt has a lump there now that she is concerned about d/t it still being there and painful. Pt did not take pain medication CALENDER OPERATOR. documented in this encounter Miscellaneous Notes * ED Mattress Filling Machine Tender Note - Charline Miller RN - 09/11/2023 3:34 PM EST Ae wrap applied to upper left thigh. Pt verbalized understanding of discharge instructions. Pt ambulated off of unit. documented in this encounter Plan of Treatment Upcoming Encounters Date Type Department Care Team (Latest Contact Info) Description 4 2:15 PM EDT Hospital Encounter [facility], Endoscopy [address] [phone] rTae Lewis MD [address] [place] [address] 4 2:15 PM EDT - 4 2:45 PM EDT Surgery [facility], Endoscopy [address] [place] [phone] Trae Lewis MD [address] [place] [address] ESOPHAGOGASTRODUODENOSCOPY (EGD), FLEXIBLE, TRANSORAL, DIAGNOSTIC 4 1:40 PM EDT Office Visit Hepatology, [address] [phone] Nel Madsen MD [address] [place] [address] 4 10:00 AM EDT Appointment [address], [address] [phone] 4 10:30 AM EDT PulmDiagnostic Pulmonary Function Lab, [address] [address] [facility], Pulm Function Room [address] [place], [place] [address] [address] 4 11:00 AM EDT PulmDiagnostic Pulmonary Function Lab, [address] [place] [address] Gl, Pulm Function Room 2 [address] [place] [address] 9:20 AM EDT Office Visit Pulmonary Medicine Carolyn Santacruz [address] [phone] Colby Anaya MD [address] [address] Scheduled Procedures Name Priority Associated Diagnoses Date/Ti me ESOPHAGOGASTRODUODENOSCOPY ( EGD), FLEXIBLE, TRANSORAL, DIAGNOSTIC S/P gastric bypass Gastric ulcer, unspecified chronicity, unspecified whether gastric ulcer hemorrhage or perforation present 11/10/2023 2:15 PM EDT Health Maintenance Due Date Last Done Comments Hepatitis B (1 of 3 - 3-dose series) 1981 COVID-19 Vaccine (#1) 1981 HPV/Co-Test 2011 Cervical Cancer Screening 03/20/2012 Pap Smear 03/20/2012 03/20/2009, 03/20/2009 Pneumococcal Vaccine: Pediatrics (0 to 5 Years) and At-Risk Patients (6 to 64 Years) (2 - PCV) 10/22/2012 10/23/2011 Mammogram 2021 DTaP,Tdap,and Td Vaccines (3 - Td or Tdap) 10/22/2021 10/23/2011, 03/20/2009 Depression, Most Recent Score >= 10 (will fire each visit until score < 10) 01/05/2022 01/04/2022 Influenza Vaccine (FLU shot) (#1) 2023 09/04/2012, 05/25/2010, 05/01/2009 DISCUSS TOBACCO CESSATION (REFER TO SMARTSET #0471) 02/05/2024 02/04/2023, 10/02/2022 Diabetes Screening 07/28/2026 07/28/2023, 0 09/10/2022, 04/15/2022, Additional history exists Lipid Panel 01/04/2027 01/04/2022, 01/09/2018 GARDASIL-HPV IMMUNIZATION SERIES Aged Out No longer eligible based on patient's age to complete this topic MENINGOCOCCAL (MENACTRA/MENVEO) Aged Out No longer eligible based on patient's age to complete this topic documented as of this encounter Medical Devices Implanted Type Area Offender Employment Specialist Device Identifier Shelf Expiration Date Model / Serial / Lot Screw Nlk V2 T5 1.7mm L10mm - [id number] Implanted:Qty: 2 on 09/04/2021 by Rip Brown, DO at OR [facility] Right: Hand SANDI : TRAUMA [id number] / / documented as of this encounter Visit Diagnoses Diagnosis Hematoma of left thigh, initial encounter- Primary S/P gastric bypass Bariatric surgery status Gastric ulcer, unspecified chronicity, unspecified whether gastric ulcer hemorrhage or perforation present documented in this encounter Advance Directives Latest Code Status on File Code Status Date Activated Date Inactivated Comments Full Code 01/04/2022 11:30 AM 01/11/2022 5:33 PM This order reflects the patients wishes and were consensually agreed upon. Code Status History Code Status Date Activated Date Inactivated Comments Full Code 11/01/2021 7:48 PM 11/05/2021 3:47 PM This order reflects the patients wishes and were consensually agreed upon. Full Code 01/07/2018 10:04 PM 01/12/2018 6:16 PM This order reflects the patients wishes and were consensually agreed upon. Full Code 01/02/2018 2:58 PM 01/07/2018 6:55 PM This order reflects the patients wishes and were consensually agreed upon. Question Answer Comments Discussion of Advance Directives occurred with: Not Discussed Does the patient have a Living Will? No Does the patient have Health Care Power of Firer Automatic Stoker? No Full Code 01/01/2018 3:59 PM 01/02/2018 2:21 PM This order reflects the patients wishes and were consensually agreed upon.
--- OUTSIDE RECORDS SUMMARY | 2024-02-05 06:49 | External Medical Summary | Summary of Care ---
Author Name Unknown Organization [facility] Address [address] [place] [address] Phone [phone] Care Team Providers Care Cutting Machine Tender Helper Name Role Phone Unavailable Primary Care Provider Unavailabl e Reason for Visit * Reason Comments Pulmonary Function Test Encounter Details Date Type Department Care Team ([facility] st Contact Info) Description 01/21/2024 11:00 AM EDT PulmDiagnostic Pulmonary Function Lab, [facility] [address] [place] [address] Gl, Pulm Function Room 2 [address] [place], [place] [phone] Asthma with COPD (chronic obstructive pulmonary disease) ([facility])* Allergies Active Allergy Reactions Criticality Noted Date [...] day as needed for Anxiety. 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 Overview: Performed at [facility] [place] Insomnia 12/28/2013 Overview: ICD-10 update [...] Cocaine abuse in remission 01/01/2018 0 01/02/2018 [place] toxicity 12/31/2017 01/01/2018 Dysphagia 07/31/2010 05/23/2016 Overview: [...] Medicine Carolyn Santacruz [address] [phone] Colby Anaya MD [address] [address] Pending Results Name Type Priority Associated Diagnoses Date /Time SPIROMETRY B/A BRONCHODILATOR Procedures Routine Asthma with COPD (chronic obstructive pulmonary disease) (HCC) 01/21/2024 10:04 AM EDT Scheduled Procedures Name Priority Associated Diagnoses Date/Ti md ESOPHAGOGASTRODUODENOSCOPY ( EGD), FLEXIBLE, TRANSORAL, DIAGNOSTIC Recall [...] Monitoring 01/04/2023 01/04/2022 COVID-19 Vaccine (1 - 2023-24 season) 2023 DISCUSS TOBACCO CESSATION (REFER TO [...] this encounter Medical Devices Implanted Type Area Cartography Teacher Device Identifier Shelf Expiration Date Model / Serial / Lot [place] Hand Plating Variax 2 1.7mm S Locking Plates Straight Implanted:Qty: 1 on 09/04/2021 by Rip Brown DO at OR [facility] Right: Hand SANDI : TRAUMA [id number] / / Screw Nlk V2 T5 1.7mm L7mm - [id number] Implanted:Qty: 2 on 09/04/2021 by Rip Brown DO at OR [facility] Right: Hand SANDI : TRAUMA [id number] / / Screw Nlk V2 T5 1.7mm L8mm - [id number] Implanted:Qty: 3 on 09/04/2021 by Rip rBown DO at OR [facility] Right: Hand SANDI : TRAUMA [id number] / / Screw Nlk V2 T5 1.7mm L10mm - [id number] Implanted:Qty: 2 on 09/04/2021 by Rip Brown DO at OR [facility] Right: Hand SANDI : TRAUMA [id number] / / documented as of this encounter Procedures Procedure Name Priority Date/Time Associated Diagnosis Comments SPIROMETRY B/A BRONCHODILATOR Routine 01/21/2024 10:04 AM EDT Asthma with COPD (chronic obstructive pulmonary disease) (HCC) documented in this encounter Visit Diagnoses Diagnosis Asthma with COPD (chronic obstructive pulmonary disease) (HCC)- Primary Chronic obstructive asthma, unspecified documented in this encounter Administered Medications Active Administered Medications - up to 3 most recent administrations Medication Order MAR Action Action Date Dose Rate Site Albuterol Sulfate (Proventil) (5 MG/ML) 0.5% *conc* inhalation solution 2.5 mg 2.5 mg, Nebulizer, PRN Other, [place], Starting on Fri02/04/23 at 1123, Until Fri02/04/24 at 1122, For 365 days, Only one type of albuterol product should be administered (Nebulizer or Inhaler). Please select and document on the appropriate albuterol product order. *Dilute with 0.9% saline IF needed Given 01/21/2024 10:13 AM EDT 2.5 mg documented in this encounter Advance Directives * [...]
--- OUTSIDE RECORDS SUMMARY | 2024-02-05 06:49 | External Medical Summary ---
Author Name Unknown Address Unknown Organization [id number]:[facility] [place] [address] [place] [address] Laboratory Report Ordering Provider Test Date Status JADA CAMPOSLEY 12/30/2023 13:55:01 Final Follicular Phase: 12.4-233 p g/mL
Ovulation Phase: 41.0-398 pg/mL
Luteal Phase: 22.3-341 pg/mL

Post menopausal: <50 pg/mL

:
1st Trimester: 154-3243 pg/mL
2nd Trimester: 1561-75817 pg/mL
3rd Trimester: >8525 pg/mL Observation Date Value Abnormality Reference (Units ) Status Estradiol 12/30/2023 13:55:01 26.5 (pg/mL) Final Performing Location [facility] [place] [address] [place] [address]
--- OUTSIDE RECORDS SUMMARY | 2024-02-05 06:49 | External Medical Summary | Summary of Care ---
Author Name Unknown Organization [facility] Address [address] [place] [address] Phone [phone] Care Team Providers Care Media Marketing Director Name Role Phone Unavailable Primary Care Provider Unavailabl e Encounter Details Date Type Department Care Team (Latest Contact Info) Description 01/21/2024 9:44 AM EDT - 01/21/2024 11:59 PM EDT Hospital Encounter Radiology, [facility] [address] [place] [id number] Arrived Discharge Disposition: Home - Self Care Allergies [...] as of this encounter (statuses as of 01/22/2024) Medications Medication Sig Dispensed Refills Start Date [...] day as needed for Anxiety. Active Tiotropium [place]-Olodaterol 2.5-2.5 MCG/ACT Inhalation Aerosol Solution (Stiolto Respimat) [...] with COPD (chronic obstructive pulmonary disease) ([facility]) 2.5 mg NEBULIZER PRN 02/04/2023 02/04/2024 Active Albuterol Sulfate (Proventil) (5 MG/ML) 0.5% *conc* inhalation solution 2.5 mgIndications:Asthma with COPD (chronic obstructive pulmonary disease) ([facility]) 2.5 mg NEBULIZER PRN 02/04/2023 02/04/2024 Active documented as of this encounter (statuses as of 01/22/2024) Active Problems Problem Noted Date Diagnosed Date [...] as of this encounter (statuses as of 01/22/2024) Resolved Problems Problem Noted Date Diagnosed Date Resolved Date Cocaine abuse in remission 01/01/2018 0 01/02/2018 [place] toxicity 12/31/2017 01/01/2018 Dysphagia 07/31/2010 05/23/2016 Overview: [...] as of this encounter (statuses as of 01/22/2024) Immunizations Name Administration Dates Next Due PPD [...] Medicine Carolyn Santacruz [address] [phone] Colby Anaya MD [address] [id number] Pending Results Name Type Priority Associated Diagnoses Date /Time XR CHEST 2 VIEWS Medical Imaging Routine 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) 01/21/2024 9:51 AM EDT Scheduled Orders Name Type Priority Associated Diagnoses Orde r Schedule XR CHEST 2 VIEWS Medical Imaging Routine 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) 1 Occurrences starting 01/21/2024 until 01/21/2024 Scheduled Procedures Name Priority Associated Diagnoses Date/Ti [...] Monitoring 01/04/2023 01/04/2022 COVID-19 Vaccine (1 - season) 2023 DISCUSS TOBACCO CESSATION (REFER TO [...] this encounter Medical Devices Implanted Type Area Crane Hoist Or Lift Operator Device Identifier Shelf Expiration Date Model / Serial / Lot Avelina Hand Plating Variax 2 1.7mm S Locking Plates Straight Implanted:Qty: 1 on 09/04/2021 by Rip Brown DO at OR [facility] Right: Hand AVELINA : TRAUMA [id number] / / Screw Nlk V2 T5 1.7mm L7mm - [id number] Implanted:Qty: 2 on 09/04/2021 by Rip Brown DO at OR [facility] Right: Hand AVELINA : TRAUMA [id number] / / Screw Nlk V2 T5 1.7mm L8mm - [id number] Implanted:Qty: 3 on 09/04/2021 by Rip Brown DO at OR [facility] Right: Hand AVELINA : TRAUMA [id number] / / Screw Nlk V2 T5 1.7mm L10mm - [id number] Implanted:Qty: 2 on 09/04/2021 by Rip Brown DO at OR [facility] Right: Hand AVELINA : TRAUMA [id number] / / documented as of this encounter Visit Diagnoses Diagnosis 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
[2024-02-05] MEDS: ALBUT/IPRATROP 3MG/0.5MG NEB 3 ML VIAL NEB SCH (07:02)
[2024-02-05] MEDS: FOLIC ACID 1 MG TAB PO SCH (08:11)
[2024-02-05] MEDS: DOXYCYCLINE HYCLATE 100 MG CAP PO SCH (08:11)
[2024-02-05] MEDS: buPROPion HCl 75 MG TABLET PO SCH (08:11)
[2024-02-05] MEDS: THIAMINE HCL 100 MG TAB PO SCH (08:12)
[2024-02-05] MEDS: HEPARIN SOD 5,000 UNIT/0.5 ML VIAL SQ SCH (08:12)
[2024-02-05] MEDS: ziprasidone HCL 80 MG CAP PO SCH (08:18)
[2024-02-05 08:50] LABS: Basophils # (auto) 0.05 K/uL (0.00-0.20); Basophils % (auto) 1.1 %; Eosinophils # (auto) 0.03 K/uL (0.00-0.50); Eosinophils % (auto) 0.7 %; Hemoglobin 9.8 g/dl (12.0-16.0); Immature Granulocytes # (auto) 0.04 K/uL (0.01-0.20); Immature Granulocytes % (auto) 0.9 %; Lymphocytes # (auto) 2.11 K/uL (1.20-3.40); Lymphocytes % (auto) 48.4 %; Mean Corpuscular Hgb Conc 32.7 g/dL (32.0-36.0); Mean Corpuscular Volume 107.1 fL (80.0-100.0); Mean Platelet Volume 11.7 fL (9.4-12.4); Monocytes # (auto) 0.41 K/uL (0.11-0.59); Monocytes % (auto) 9.4 %; Neutrophils # (auto) 1.72 K/uL (1.40-6.50); Neutrophils % (auto) 39.5 %; Platelet Count 129 K/uL (130-400); RDW Coefficient of Variation 17.3 % (11.5-14.5); RDW Standard Deviation 70.4 fL (36.4-46.3); White Blood Count 4.36 K/ul (4.8-10.8)
[2024-02-05] MEDS ORDERED: NON-FORMULARY MEDICATION (Fluticasone-Umeclidin-Vilanter [Trelegy Ellipta] 100-62.5-25 mcg INH SCH (09:00)
[2024-02-05 09:08] LABS: Alanine Aminotransferase 59 U/L (7-52); Albumin Level 2.5 gm/dl (3.4-5.0); Alkaline Phosphatase 374 U/L (34-104); Anion Gap 4 (3-11); Aspartate Aminotransferase 144 U/L (13-39); BUN Creatinine Ratio 11.1 (10-20); Bilirubin,Total 4.3 mg/dl (0.2-1.0); Blood Urea Nitrogen 7 mg/dl (6-23); Calcium 7.9 mg/dl (8.6-10.3); Carbon Dioxide 24 mmol/L (21-32); Chloride 107 mmol/L (98-107); Creatinine Clr Calc Pharmacy 94.6 ml/min; Est GFR (African American) 128.2 ml/min; Est GFR (Non-African American) 110.6 ml/min; Glucose 78 mg/dl (70-99(Fasting)); Magnesium 1.9 mg/dl (1.7-2.4); Potassium 3.3 mmol/L (3.5-5.1); Sodium 135 mmol/L (136-145); Total Protein 5.5 gm/dl (6.0-8.3)
[2024-02-05] MEDS: FLUTICASONE FUROATE 100MCG 14 PUFFS/INHALER INH SCH (09:35)
[2024-02-05] MEDS: UMECLIDINIUM/VILANTEROL 62.5/25MCG 7 PUFFS/INHALER INH SCH (09:35)
[2024-02-05] MEDS: POTASSIUM CHLORIDE CRTAB 20 MEQ TABCR PO STA (10:07)
--- NOTE | 2024-02-05 10:30 | Gastrointestinal Consultation ---
Date of Consultation February 05, 2024 Assessment & Plan (1) History of gastric bypass: 43 year old female with history of PBC following with [facility] hepatology maintained on Ursodiol, alcohol dependence, fibromyalgia, bipolar, substance abuse, asthma, ADHD, obesity s/p gastric sleeve w/ later RYGB, hernia repair who was admitted last week at [facility] for alcoholic hepatitis admitted through the ED w/ abd pain and elevated LFTs. Her transaminases are improving since discharge from [facility], Tbili at discharge was 7.6, AST 258, ALT 142, ALKP 629. Today's labs show Tbili 4.3, AST 144, ALT 59, ALKP 374. Her DF is 18 and there is no indication for glucocorticoid therapy at this time. CT at [place] and [facility] reviewed without any acute findings. She does carry a history of small ulcer on 2021 scope at Gastrojejunal anastomosis. She certainly is at risk for ulcer disease given ongoing tobacco and ETOH abuse. Recommend PO PPI BID. Can trial a course of PO liquid Carafate for 14 days. Given her history of PBC she should continue following with hepatology. ETOH avoidance was stressed. Smoking cessation is also important. No current indication for inpatient endoscopic evaluation. Thank you for allowing us to participate in the care of this patient. Please call with any acute changes, questions or concerns. Please see addendum below with additional recommendation from my supervising physician. (2) Elevated liver enzymes: Supervising Physician Co-Signing Physician Notes I examined the patient and reviewed patient's chart , laboratory data and imaging studies. I agree with with assessment and plan of care as suggested by advanced practice provider History of Present Illness Reason for Consultation: abd pain, elevated LFTs Requesting Physician: Marlena Attending Physician: Marisabel Mendiola MD History of Present Illness 43 year old female with history of PBC following with [facility] hepatology maintained on Ursodiol, alcohol dependence, fibromyalgia, bipolar, substance abuse, asthma, ADHD, obesity s/p gastric sleeve w/ later RYGB, hernia repair w mesh admitted through the ED with abdominal pain and elevated LFTs. Pt was seen and evaluated, chart reviewed. Of note, she was admitted for management of the same at [facility] last week for suspected alcoholic hepatitis. She endorses chronic abd pain. This has been worse of recent. It is epigastric in location and occasionally radiated to her RUQ. Eating make the pain become more severe. She has nausea associated with the pain. Has vomited but this is rare. No report of bl ack or bloody emesis. She notes her stools are not regular. Can be loose. Has not seen any black or bloody stools. She has not had any ETOH in a week given her recent admission to [facility] but prior to this she was using ETOH daily, 6-12 beers at a time. She use tobacco products daily as well. Her LFTs are downtrending from her admission at [facility]. Tbili at discharge was 7.6, AST 258, ALT 142, ALKP 629. Today's labs show Tbili 4.3, AST 144, ALT 59, ALKP 374. LB in 2014 showed Minimal macrovesicular steatosis. NADLD acitivity score 1 out of 8; NAFLD fibrosis stage 1A. Portal and lobular chronic inflammation with non- caseating granulomatous inflammation. AMA in 2018= 167 LB in 2018 showed PBC with F1 fibrosis LB in 2021 showed portal inflammation w/ florid duct lesions consistent with PBC, mild steatosis, F1-F2 fibrosis CTAP 2023: Prominent hepatic steatosis and hepatomegaly are seen. Kyle atohepatitis cannot be excluded. 2. No evidence of intraperitoneal hemorrhage or other acute abnormality. 3. Postsurgical changes of gastric sleeve. CTAP 2023: Hepatomegaly. There is extensive diffuse fatty infiltration of the liver, which is new since the prior study. No biliary ductal dilatation is visualized. 2. Nonobstructing 0.2 cm right renal calculus. 3. Small amount of free fluid is seen in the right paracolic gutter and pelvis. 4. Mild diffuse anasarca. EUS 2021 at [facility]: Limited exam due to RYGB anatomy. - There was no sign of significant pathology in the upper third of the main bile duct. - There was no evidence of significant pathology in the left lobe of the liver. Fine needle biopsy performed. - Normal portosystemic pressure gradient. - Pancreatic parenchymal abnormalities consisting of hyperechoic strands and hyperechoic foci were noted in the pancreatic body and pancreatic tail. - Endosonographic images of the left adrenal gland were unremarkable. - The celiac trunk was endosonographically normal. EGD 2021 at [facility]: Normal esophagus. - Gastric bypass with a pouch 5 cm in length and intact staple line. Gastrojejunal anastomosis characterized by small ulceration. - Normal examined jejunum. Colonoscopy 2019 at [facility]: - The examined portion of the ileum was normal. - The entire examined colon is normal, no signs of IBD. Biopsied. - One small polyp in the rectum, removed with a cold snare. Resected and retrieved. Allergies Allergy/AdvReac Type Severity Reaction Status Date / Time cayenne pepper fruits Allergy Severe "hot Verified 02/05/24 00:09 peppers" airway edema dichloralphenazone Allergy Severe AIRWAY Verified 02/04/24 20:32 [From Midrin] EDEMA isometheptene [From Midrin] Allergy Severe AIRWAY Verified 02/04/24 20:32 EDEMA Penicillins Allergy Severe AIRWAY Verified 02/04/24 20:32 EDEMA sertraline Allergy Severe AIRWAY Verified 02/04/24 20:32 EDEMA sodium hypochlorite solution Allergy Severe Anaphylaxis Verified 02/04/24 20:32 carbamazepine [From Tegretol] Allergy Mild SWELLING Verified 02/04/24 20:32 ON THE BACK OF HEAD nicotine Allergy Mild Rash Verified 02/04/24 20:32 lurasidone [From Latuda] AdvReac Severe CAUSED JAW Verified 02/04/24 20:32 TO LOCK aspirin AdvReac Intermediate NAUSEA/VOMI Verified 02/04/24 20:32 TING eszopiclone [From Lunesta] AdvReac Intermediate NIGHT Verified 02/04/24 20:32 TERRORS hydrocodone AdvReac Intermediate ABD Verified 02/04/24 20:32 CRAMPS/PAIN, NAUSEA/VOMITING oxycodone AdvReac Intermediate Vomiting Verified 02/04/24 20:32 propoxyphene AdvReac Intermediate Gastrointestinal Verified 02/04/24 20:32 [From Darvocet-N] Upset rofecoxib AdvReac Intermediate GI BLEEDING Verified 02/04/24 20:32 salicylates AdvReac Intermediate IBS/GI Verified 02/04/24 20:32 IRRITATION WITH ASA & VIOXX tetracycline AdvReac Intermediate NAUSEA/VOMI Verified 02/04/24 20:32 TING amoxicillin [From Augmentin] AdvReac Mild Headache Verified 02/04/24 20:32 clavulanic acid AdvReac Mild Headache Verified 02/04/24 20:32 [From Augmentin] Home Medications Medication Instructions Recorded Confirmed Type albuterol sulfate 90 mcg/actuation 2 puff inhalation Q4H PRN 02/04/24 02/04/24 History aerosol inhaler Shortness Of Breath Or Wheezing bupropion HCl 75 mg tablet 75 mg PO DAILY 02/04/24 02/04/24 History clonazepam 1 mg tablet 1 mg PO BID PRN PANIC ATTACKS 02/04/24 02/04/24 History fluticasone fur. 100 mcg-umeclid 1 inh inhalation DAILY 02/04/24 02/04/24 History 62.5 mcg-vilant 25 mcg inhalat.powder (Trelegy Ellipta) folic acid 1 mg tablet 1 mg PO DAILY 02/04/24 02/04/24 History multivitamin with folic acid 400 1 tab PO QDL 02/04/24 02/04/24 History mcg tablet (Daily-Donaldo (with folic acid)) naltrexone 50 mg tablet 50 mg PO QAM 02/04/24 02/04/24 History propranolol 10 mg tablet 10 mg PO BID PRN Anxiety 02/04/24 02/04/24 History thiamine HCl (vitamin B1) 100 mg 100 mg PO DAILY 02/04/24 02/04/24 History tablet (Vitamin B-1) trazodone 100 mg tablet 200 mg PO HS PRN SLEEDP 02/04/24 02/04/24 History ursodiol 300 mg capsule See Rx Instructions .Route .COMPLEX 02/04/24 02/04/24 History ziprasidone HCl 80 mg capsule 80 mg PO DAILY 02/04/24 02/04/24 History Patient History Medical History H/O Clostridium difficile infection Nephrolithiasis Borderline personality disorder Stomach ulcer Surgical History History of cholecystectomy 2010 History of sleeve gastrectomy 2015 History of Jeet-en-Y gastric bypass 2016 History of esophagogastroduodenoscopy (EGD) Family History (Updated 12/07/21 @ 16:12 by Janny Cortes PA-C) Mother Cancer Asthma Adverse reaction to anesthetic agent Father Cancer Uncle Cancer Aunt Cancer Sister Asthma Adverse reaction to anesthetic agent Grandmother Cancer Other No family history of bleeding disorder Social History Smoking Status: Current every day smoker Tobacco Type: Cigars Cigarettes Per Day: 5-7; Hx Alcohol Use: Yes Alcohol type: beer Alcohol Intake Frequency Comment: Daily Hx Substance Use: No Preferred Language: Haitian Communication Ability: Effective 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 Review of Systems Review of Systems: All other findings negative except as noted in HPI. Physical Exam Constitutional: WD/WN, vitals as above Chronically ill appearing female in no acute distress in ED bed, partner at bedside Respiratory: normal respiratory effort, lungs clear to auscultation Cardiovascular: Rate/Rhythm: regular rate and regular rhythm Gastrointestinal (Abdomen): Inspection/Auscultation: normal bowel sounds Percussion/Palpation: + abdomen tender (worse in upper abdomen ) and abdomen soft; no guarding and abdomen not rigid Skin: no rashes, warm and dry Results & Data Vital Signs (Past 12 Hours) Vital Signs Pulse Pulse Resp BP BP Pulse Ox Pulse Ox 02/05/24 09:03 55 L 17 112/74 98 02/05/24 08:12 64 18 128/78 96 02/05/24 07:25 66 02/05/24 07:02 66 20 98 02/05/24 07:01 50 L 13 114/69 97 02/05/24 06:00 50 L 14 104/67 96 02/05/24 05:15 49 L 14 113/83 99 02/05/24 03:03 58 L 16 101/67 97 02/05/24 00:18 68 02/04/24 23:44 66 02/04/24 23:44 96 02/04/24 23:39 62 18 117/80 98 O2 Del Method O2 Del Method 02/05/24 09:03 Room Air 02/05/24 08:12 Room Air 02/05/24 07:25 02/05/24 07:02 Room Air 02/05/24 07:01 Room Air 02/05/24 06:00 Room Air 02/05/24 05:15 Room Air 02/05/24 03:03 Room Air 02/05/24 00:18 02/04/24 23:44 02/04/24 23:44 Room Air 02/04/24 23:39 Room Air Laboratory Results 02/05/24 02/05/24 02/04/24 Range/Units 09:24 08:11 Unknown WBC 4.36 L (4.8-10.8) K/ul RBC 2.80 L (4.20-5.40) M/uL Hgb 9.8 L (12.0-16.0) g/dl Hct 30.0 L (37.0-47.0) % MCV 107.1 H (80.0-100.0) fL MCH 35.0 H (25.0-34.0) pg MCHC 32.7 (32.0-36.0) g/dL RDW Std Deviation 70.4 H (36.4-46.3) fL RDW Coeff of Prasad 17.3 H (11.5-14.5) % Plt Count 129 L (130-400) K/uL MPV 11.7 (9.4-12.4) fL Immature Gran % (Auto) 0.9 % Neut % (Auto) 39.5 % Lymph % (Auto) 48.4 % [place] % (Auto) 9.4 % Eos % (Auto) 0.7 % Baso % (Auto) 1.1 % Neut # (Auto) 1.72 (1.40-6.50) K/uL Lymph # (Auto) 2.11 (1.20-3.40) K/uL [place] # (Auto) 0.41 (0.11-0.59) K/uL Eos # (Auto) 0.03 (0.00-0.50) K/uL Baso # (Auto) 0.05 (0.00-0.20) K/uL Immature Gran # (Auto) 0.04 (0.01-0.20) K/uL Stomatocytes PT (9.0-12.0) Seconds INR (0.9-1.1) APTT (21-31) Seconds PTT Ratio Sodium 135 L (136-145) mmol/L Potassium 3.3 L (3.5-5.1) mmol/L Chloride 107 (98-107) mmol/L Carbon Dioxide 24 (21-32) mmol/L Anion Gap 4 (3-11) BUN 7 (6-23) mg/dl Creatinine 0.63 (0.6-1.2) mg/dl Est Cr Clr Drug Dosing 94.6 ml/min Est GFR ( Amer) 128.2 ml/min Est GFR (Non-Af Amer) 110.6 ml/min BUN/Creatinine Ratio 11.1 (10-20) Glucose 78 (70-99(Fasting)) mg/dl Calcium 7.9 L (8.6-10.3) mg/dl Magnesium 1.9 (1.7-2.4) mg/dl Total Bilirubin 4.3 H (0.2-1.0) mg/dl Direct Bilirubin TNP TNP AST 144 H (13-39) U/L ALT 59 H (7-52) U/L Alkaline Phosphatase 374 H (34-104) U/L Total Protein 5.5 L D (6.0-8.3) gm/dl Albumin 2.5 L (3.4-5.0) gm/dl Globulin (2.5-4.0) gm/dl Albumin/Globulin Ratio (0.9-2) Lipase (11-82) U/L Urine Color Dark Yellow Urine Appearance Cloudy A (Clear) Urine pH 6.0 (4.5-7.5) Ur Specific [place] 1.019 (1.000-1.030) Urine Protein 1+ H (Negative) Urine Glucose (UA) Negative (Negative) Urine Ketones Trace H (Negative) Urine Blood Negative (Negative) Urine Nitrite Positive A (Negative) Urine Bilirubin 3+ H (Negative) Urine Urobilinogen Positive H (Negative) Ur Leukocyte Esterase 1+ H (Negative) Urine WBC (Auto) 11-20 H (0-5) /hpf Urine RBC (Auto) 0-2 (0-2) /hpf U Hyaline Cast (Auto) 0-2 (0-2) /lpf U Epithel Cells (Auto) 6-10 H (0-2) /hpf Urine Bacteria (Auto) 4+ H (None Seen) 02/04/24 Range/Units 18:31 WBC 6.87 (4.8-10.8) K/ul RBC 3.63 L (4.20-5.40) M/uL Hgb 12.6 (12.0-16.0) g/dl Hct 37.9 (37.0-47.0) % MCV 104.4 H (80.0-100.0) fL MCH 34.7 H (25.0-34.0) pg MCHC 33.2 (32.0-36.0) g/dL RDW Std Deviation 68.3 H (36.4-46.3) fL RDW Coeff of Prasad 17.6 H (11.5-14.5) % Plt Count 158 (130-400) K/uL MPV 11.1 (9.4-12.4) fL Immature Gran % (Auto) 0.3 % Neut % (Auto) 39.2 % Lymph % (Auto) 51.7 % [place] % (Auto) 7.3 % Eos % (Auto) 0.6 % Baso % (Auto) 0.9 % Neut # (Auto) 2.70 (1.40-6.50) K/uL Lymph # (Auto) 3.55 H (1.20-3.40) K/uL [place] # (Auto) 0.50 (0.11-0.59) K/uL Eos # (Auto) 0.04 (0.00-0.50) K/uL Baso # (Auto) 0.06 (0.00-0.20) K/uL Immature Gran # (Auto) 0.02 (0.01-0.20) K/uL Stomatocytes 2+ PT 10.3 (9.0-12.0) Seconds INR 0.9 (0.9-1.1) APTT 26 (21-31) Seconds PTT Ratio 1.0 Sodium 133 L (136-145) mmol/L Potassium 3.7 (3.5-5.1) mmol/L Chloride 102 (98-107) mmol/L Carbon Dioxide 24 (21-32) mmol/L Anion Gap 7 (3-11) BUN 8 (6-23) mg/dl Creatinine 0.81 (0.6-1.2) mg/dl Est Cr Clr Drug Dosing 73.6 ml/min Est GFR ( Amer) 103.8 ml/min Est GFR (Non-Af Amer) 89.6 ml/min BUN/Creatinine Ratio 9.9 L (10-20) Glucose 85 (70-99(Fasting)) mg/dl Calcium 9.3 (8.6-10.3) mg/dl Magnesium 2.1 (1.7-2.4) mg/dl Total Bilirubin 6.9 H (0.2-1.0) mg/dl Direct Bilirubin AST 176 H (13-39) U/L ALT 81 H (7-52) U/L Alkaline Phosphatase 541 H (34-104) U/L Total Protein 7.4 (6.0-8.3) gm/dl Albumin 3.3 L (3.4-5.0) gm/dl Globulin 4.1 H (2.5-4.0) gm/dl Albumin/Globulin Ratio 0.8 L (0.9-2) Lipase 54 (11-82) U/L Urine Color Urine Appearance (Clear) Urine pH (4.5-7.5) Ur Specific [place] (1.000-1.030) Urine Protein (Negative) Urine Glucose (UA) (Negative) Urine Ketones (Negative) Urine Blood (Negative) Urine Nitrite (Negative) Urine Bilirubin (Negative) Urine Urobilinogen (Negative) Ur Leukocyte Esterase (Negative) Urine WBC (Auto) (0-5) /hpf Urine RBC (Auto) (0-2) /hpf U Hyaline Cast (Auto) (0-2) /lpf U Epithel Cells (Auto) (0-2) /hpf Urine Bacteria (Auto) (None Seen) PG Care Time/CCT Total # of Minutes Spent Total Time Spent with Patient: Total time spent is greater than 50% in coordination of care (as documented) at patient's floor/unit and/or counseling patient: Coding Level of Care Code None Diagnoses History of gastric bypass Z98.84 Elevated liver enzymes R74.8
--- NOTE | 2024-02-05 11:08 | Hospitalist Progress Note ---
Date of Service February 05, 2024 Assessment & Plan (1) Abdominal pain: Plan: 43-year-old female with past medical history significant for depression, bipolar, ADHD, PTSD, s/p laparoscopic sleeve and gastric bypass, history of primary biliary sclerosis,prior history of cocaine and marijuana abuse but patient declines, ongoing tobacco abuse, alcohol abuse comes because of abdominal pain. Patient recently admitted to the [facility] from january 27 to for abdominal pain and 'found to have elevated LFTs with AST at 456, ALT 208, alkaline phos 731 and total bilirubin 7.5 and direct bili 5.4 [address] ammonia [address] scan showed extensive diffuse fatty infiltration which seemed new ,no biliary ductal dilatation seen . Suspicious for alcohol hepatitis but DF score was 7.5 so no prednisone was given. GI recommended to restart Ursodiol 300milligrams twice daily and to follow-up with hepatology clinic and strict alcohol cessation.Patient declined inpatient alcohol rehab patient was started on naltrexone 50 mg p.o. daily and advised to follow-up with addiction medicine and was discharged home'. Patient states after going home still has a lot of abdominal pain. She went to the follow-up appointment to PCP today and because of ongoing abdominal pain was advised to come to the ER again today. Patient states has some loose stools. Denies any blood in the stools. Micturating a lot. Denies any fevers. States she is always short of breath. She still smokes half pack a day. And has cough with yellowish phlegm. She thinks she has a bronchitis and some chest discomfort from that. Has nausea. Appetite is down. No headache. Vision is blurry. Has some sore throat. Currently hemodynamics are okay. Patient states she has not drank alcohol since she was admitted in [facility] on January 27. She states she can stop alcohol for few days without going through withdrawals. Abdominal pain Ongoing Pt worried about the mesh in the abdomen - general surgery consulted, no concerns CT abdomen pelvis unremarkable Pain control- will avoid tylenol in setting of transminitis, nSAIDs with ulcer Hx and concern for acute anemia -On dilaudid q3h and po Bentyl GI consulted, appreciate recs -po ppi BID -po carafate x 14 days -alcohol cessation Elevated LFTs Improved from hospitalization at [facility] History of primary biliary sclerosis Elevated LFTs thought to be from alcoholism Appears to not be taking ursodiol GI consulted as above -continued GI followup Acute UTI UA suggestive of infection, urine Cx pending could be contributing to her symptoms Azactam as allergic to penicillin Follow cultures Bronchitis Tobacco abuse has cough rhonchi on exam probable acute bronchitis continue home inhalers nebs p.o. doxycycline Alcoholism States did not drink alcohol for a week now continue home vitamin supplements monitor for withdrawal patient was started on naltrexone at discharge from [facility] , appears to not be taking Depression Bipolar ADHD PTSD continue home medications Diet: Low fiber DVT prophylaxis: heparin subcu Dispo: Home once medically stable Admission and Anticipated Discharge Date Admission Date: February 04, 2024 Subjective Pt was seen while down in the ED. Was having a breathing treatment at the time. Abdominal pain still persistent. Review of Systems Review of Systems: All systems reviewed & are unremarkable except as noted in Subjective Physical Exam Physical Exam: General: Alert, oriented. No acute distress Skin: No noted rashes or bruises Psych: Appropriate mood and affect Neuro: No gross deficits HEENT: NC/AT Chest: Nontender to palpation. CV: RRR Resp: Breath sounds clear bilaterally, no increased effort of breathing Abdomen:Soft, tender Extremities: No edema in lower extremities bilaterally. Results & Data Results & Data Vital Signs (Past 12 Hours) Vital Signs Pulse Pulse Resp BP BP Pulse Ox Pulse Ox 02/05/24 10:42 60 20 96 02/05/24 09:03 55 L 17 112/74 98 02/05/24 08:12 64 18 128/78 96 02/05/24 07:25 66 02/05/24 07:02 66 20 98 02/05/24 07:01 50 L 13 114/69 97 02/05/24 06:00 50 L 14 104/67 96 02/05/24 05:15 49 L 14 113/83 99 02/05/24 03:03 58 L 16 101/67 97 02/05/24 00:18 68 02/04/24 23:44 66 02/04/24 23:44 96 02/04/24 23:39 62 18 117/80 98 O2 Del Method O2 Del Method 02/05/24 10:42 Room Air 02/05/24 09:03 Room Air 02/05/24 08:12 Room Air 02/05/24 07:25 02/05/24 07:02 Room Air 02/05/24 07:01 Room Air 02/05/24 06:00 Room Air 02/05/24 05:15 Room Air 02/05/24 03:03 Room Air 02/05/24 00:18 02/04/24 23:44 02/04/24 23:44 Room Air 02/04/24 23:39 Room Air
[2024-02-05] MEDS: MULTIVITAMIN TAB PO SCH (11:17)
[2024-02-05] MEDS: clonazePAM 1 MG TAB PO PRN (12:53)
[2024-02-05] MEDS: DICYCLOMINE HCL 10 MG CAP PO SCH (19:10)
[2024-02-05] MEDS: traZODone HCL 100 MG TAB PO PRN (21:19)
[2024-02-05] MEDS: SUCRALFATE 1 GM/10 ML UDC PO SCH (21:19)
[2024-02-05] MEDS: PANTOprazole 40 MG TAB PO SCH (21:19)
[2024-02-05] MEDS: ursodioL 300 MG CAP PO SCH (22:04)
[2024-02-05] MEDS: PROPRANOLOL HCL 10 MG TAB PO PRN (22:05)
[2024-02-05] MEDS ORDERED: Nursing to Pharmacy Communication SCH (23:45)
[2024-02-06 07:51] LABS: Basophils # (auto) 0.05 K/uL (0.00-0.20); Basophils % (auto) 1.2 %; Eosinophils # (auto) 0.05 K/uL (0.00-0.50); Eosinophils % (auto) 1.2 %; Hematocrit (blood only) 29.2 % (37.0-47.0); Hemoglobin 9.2 g/dl (12.0-16.0); Immature Granulocytes # (auto) 0.01 K/uL (0.01-0.20); Immature Granulocytes % (auto) 0.2 %; Lymphocytes # (auto) 2.32 K/uL (1.20-3.40); Lymphocytes % (auto) 53.6 %; Mean Corpuscular Hemoglobin 34.6 pg (25.0-34.0); Mean Corpuscular Hgb Conc 31.5 g/dL (32.0-36.0); Mean Corpuscular Volume 109.8 fL (80.0-100.0); Mean Platelet Volume 11.5 fL (9.4-12.4); Monocytes # (auto) 0.39 K/uL (0.11-0.59); Neutrophils # (auto) 1.51 K/uL (1.40-6.50); Neutrophils % (auto) 34.8 %; Platelet Count 125 K/uL (130-400); Polychromasia 1+; RDW Coefficient of Variation 17.3 % (11.5-14.5); RDW Standard Deviation 70.3 fL (36.4-46.3); Red Blood Count 2.66 M/uL (4.20-5.40); White Blood Count 4.33 K/ul (4.8-10.8)
[2024-02-06 08:03] LABS: Albumin Globulin Ratio 0.8 (0.9-2); Albumin Level 2.4 gm/dl (3.4-5.0); BUN Creatinine Ratio 11.1 (10-20); Bilirubin,Total 3.7 mg/dl (0.2-1.0); Calcium 8.1 mg/dl (8.6-10.3); Creatinine Clr Calc Pharmacy 113.6 ml/min; Est GFR (African American) 134.9 ml/min; Est GFR (Non-African American) 116.4 ml/min; Magnesium 1.9 mg/dl (1.7-2.4); Phosphorus 3.4 mg/dl (2.5-4.9); Potassium 3.9 mmol/L (3.5-5.1); Total Protein 5.4 gm/dl (6.0-8.3)
[2024-02-06 08:18] LABS: Folate (Folic Acid),Ser orPlas 9.52 ng/ml (>5.38)
[2024-02-06 08:21] LABS: Ferritin 72.5 ng/ml (8-388)
[2024-02-06] MEDS: ursodioL 300 MG CAP PO SCH (09:55)
--- NOTE | 2024-02-06 13:37 | Hospitalist Progress Note ---
Date of Service February 06, 2024 Assessment & Plan (1) Abdominal pain: Plan: 43-year-old female with past medical history significant for depression, bipolar, ADHD, PTSD, s/p laparoscopic sleeve and gastric bypass, history of primary biliary sclerosis,prior history of cocaine and marijuana abuse but patient declines, ongoing tobacco abuse, alcohol abuse comes because of abdominal pain. Patient recently admitted to the [facility] from january 27 to for abdominal pain and 'found to have elevated LFTs with AST at 456, ALT 208, alkaline phos 731 and total bilirubin 7.5 and direct bili 5.[address] scan showed extensive diffuse fatty infiltration which seemed new ,no biliary ductal dilatation seen . Suspicious for alcohol hepatitis but DF score was 7.5 so no prednisone was given. GI recommended to restart Ursodiol 300milligrams twice daily and to follow-up with hepatology clinic and strict alcohol cessation.Patient declined inpatient alcohol rehab patient was started on naltrexone 50 mg p.o. daily and advised to follow-up with addiction medicine and was discharged home'. Patient states after going home still has a lot of abdominal pain. She went to the follow-up appointment to PCP today and because of ongoing abdominal pain was advised to come to the ER again today. Patient states has some loose stools. Denies any blood in the stools. Micturating a lot. Denies any fevers. States she is always short of breath. She still smokes half pack a day. And has cough with yellowish phlegm. She thinks she has a bronchitis and some chest discomfort from that. Has nausea. Appetite is down. No headache. Vision is blurry. Has some sore throat. Currently hemodynamics are okay. Patient states she has not drank alcohol since she was admitted in [facility] on January 27. She states she can stop alcohol for few days without going through withdrawals. Abdominal pain Ongoing Pt worried about the mesh in the abdomen - general surgery consulted, no concerns CT abdomen pelvis unremarkable Pain control- will avoid tylenol in setting of transminitis, nSAIDs with ulcer Hx and concern for acute anemia -On dilaudid q3h and po Bentyl GI consulted, appreciate recs -po ppi BID -po carafate x 14 days -alcohol cessation Elevated LFTs Improved from hospitalization at [facility] History of primary biliary sclerosis Elevated LFTs thought to be from alcoholism Appears to not be taking ursodiol GI consulted as above -continued GI followup Acute UTI UA suggestive of infection, urine Cx growing E coli sensitive to rocephin could be contributing to her symptoms Azactam as allergic to penicillin Continue Bronchitis Tobacco abuse has cough rhonchi on exam probable acute bronchitis continue home inhalers nebs p.o. doxycycline Alcoholism States did not drink alcohol for a week now continue home vitamin supplements monitor for withdrawal patient was started on naltrexone at discharge from [facility] , appears to not be taking Depression Bipolar ADHD PTSD continue home medications Diet: Low fiber DVT prophylaxis: heparin subcu Dispo: Home once medically stable Admission and Anticipated Discharge Date Admission Date: February 04, 2024 Subjective Pt states that she is tolerating a diet better but still having significant abd pain. States that she is not yet ready for discharge. Review of Systems Review of Systems: All systems reviewed & are unremarkable except as noted in Subjective Physical Exam Physical Exam: General: Alert, oriented. No acute distress Skin: No noted rashes or bruises Psych: Appropriate mood and affect Neuro: No gross deficits HEENT: NC/AT Chest: Nontender to palpation. CV: RRR Resp: Breath sounds clear bilaterally, no increased effort of breathing Abdomen:Soft, tender Extremities: No edema in lower extremities bilaterally. Results & Data Results & Data Vital Signs (Past 12 Hours) Vital Signs Temp Pulse Pulse Pulse Resp BP Pulse Ox 02/06/24 11:47 36.5 C 51 L 16 115/74 99 02/06/24 11:33 48 L 17 95 02/06/24 09:45 02/06/24 08:26 36.6 C 47 L 16 117/71 99 02/06/24 07:44 50 L 02/06/24 07:29 57 L 17 99 02/06/24 03:57 36.6 C 55 L 16 98/66 L 98 O2 Del Method FiO2 02/06/24 11:47 Room Air 02/06/24 11:33 Room Air 02/06/24 09:45 Room Air 02/06/24 08:26 Room Air 02/06/24 07:44 02/06/24 07:29 Room Air 21 02/06/24 03:57 Room Air
[2024-02-07 06:33] LABS: Basophils # (auto) 0.06 K/uL (0.00-0.20); Basophils % (auto) 1.5 %; Eosinophils # (auto) 0.03 K/uL (0.00-0.50); Eosinophils % (auto) 0.7 %; Hematocrit (blood only) 28.9 % (37.0-47.0); Hemoglobin 9.3 g/dl (12.0-16.0); Immature Granulocytes # (auto) 0.01 K/uL (0.01-0.20); Immature Granulocytes % (auto) 0.2 %; Lymphocytes # (auto) 1.86 K/uL (1.20-3.40); Lymphocytes % (auto) 46.4 %; Mean Corpuscular Hemoglobin 35.1 pg (25.0-34.0); Mean Corpuscular Hgb Conc 32.2 g/dL (32.0-36.0); Mean Corpuscular Volume 109.1 fL (80.0-100.0); Mean Platelet Volume 11.8 fL (9.4-12.4); Monocytes # (auto) 0.39 K/uL (0.11-0.59); Monocytes % (auto) 9.7 %; Neutrophils # (auto) 1.66 K/uL (1.40-6.50); Neutrophils % (auto) 41.5 %; Platelet Count 133 K/uL (130-400); RDW Coefficient of Variation 16.5 % (11.5-14.5); RDW Standard Deviation 66.2 fL (36.4-46.3); Red Blood Count 2.65 M/uL (4.20-5.40); White Blood Count 4.01 K/ul (4.8-10.8)
[2024-02-07 06:36] LABS: Albumin Globulin Ratio 0.8 (0.9-2); Albumin Level 2.3 gm/dl (3.4-5.0); BUN Creatinine Ratio 15.7 (10-20); Bilirubin,Total 3.7 mg/dl (0.2-1.0); Calcium 7.8 mg/dl (8.6-10.3); Creatinine Clr Calc Pharmacy 120.2 ml/min; Est GFR (African American) 137.5 ml/min; Est GFR (Non-African American) 118.6 ml/min; Globulin 2.9 gm/dl (2.5-4.0); Magnesium 1.8 mg/dl (1.7-2.4); Phosphorus 2.5 mg/dl (2.5-4.9); Potassium 3.6 mmol/L (3.5-5.1); Total Protein 5.2 gm/dl (6.0-8.3)
--- NOTE | 2024-02-07 10:11 | Discharge Summary ---
Discharge Summary Date of Service February 07, 2024 Principal Dx & Hospital Course #1 = Principal Diagnosis (1) Diffuse abdominal pain: Plan 43-year-old female with past medical history significant for depression, bipolar, ADHD, PTSD, s/p laparoscopic sleeve and gastric bypass, history of primary biliary sclerosis, prior history of cocaine and marijuana abuse, ongoing tobacco abuse, alcohol abuse presenting with abdominal pain. Patient recently admitted to the [facility] from january 27 to for abdominal pain and 'found to have elevated LFTs with AST at 456, ALT 208, alkaline phos 731 and total bilirubin 7.5 and direct bili 5.[address] scan showed extensive diffuse fatty infiltration which seemed new, no biliary ductal dilatation seen . Suspicious for alcohol hepatitis but DF score was 7.5 so no prednisone was given. GI recommended restart Ursodiol 300milligrams twice daily and to follow- up with hepatology clinic and strict alcohol cessation. Patient declined inpatient alcohol rehab, was started on naltrexone 50 mg p.o. daily, advised to follow-up with addiction medicine and was discharged home. Patient states after going home still has a lot of abdominal pain. She went to the follow-up appo intment to PCP and because of ongoing abdominal pain was advised to come to the ER again. Patient states she has not drank alcohol since she was admitted in [facility] on January 27 and is not taking the naltrexone prescribed. She states she can stop alcohol for a few days without going through withdrawals. Abdominal pain Ongoing Pt worried about the mesh in the abdomen - general surgery consulted, no concerns, stated no surgical intervention needed and signed off. CT abdomen pelvis unremarkable Pain control- will avoid tylenol in setting of transaminitis and avoid NSAIDs with ulcer Hx and concern for acute anemia Pain was treated with scheduled bentyl 10mg TID and PRN dilaudid 0.25mg q3h GI consulted, appreciate recs. Recommended the following: -po ppi BID -po carafate x 14 days -alcohol cessation Pt was discharged with Bentyl, 9 pills of prn oxycodone for SEVERE pain only, Carafate, pantoprazole. She was advised to not take oxycodone with alcohol or home naltrexone (that she states she does not take,) or home klonipin Close PCP, hepatology/GI followup after discharge. Elevated LFTs Transaminitis Improved from hospitalization at [facility] History of primary biliary sclerosis Elevated LFTs thought to be from alcoholism Appears to not be taking ursodiol, was restarted GI consulted as above -continued GI followup Close PCP, hepatology/GI followup after discharge. Acute UTI UA suggestive of infection, urine Cx growing E coli resistant to penicillins and Bactrim Could be contributing to her symptoms Pt with penicillin allergy of anaphylaxis, was started on Azactam on admission Cephalosporins not an option with anaphylactic penicillin allergy due to cross reaction Discharged with five day macrobid course PCP followup Bronchitis Tobacco abuse Presenting with cough Rhonchi on exam probable acute bronchitis continued home inhalers, nebs p.o. 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 Carafate 1g QID Pantoprazole 40mg BID Docusate sodium 100mg BID Doxycycline 100mg BID x 7.5 more days Macrobid 100mg BID x 5 days Admission HPI Per Admitting Provider 43-year-old female with past medical history significant for depression, bipolar, ADHD, PTSD, s/p laparoscopic sleeve and gastric bypass, history of primary biliary sclerosis,prior history of cocaine and marijuana abuse but patient declines, ongoing tobacco abuse, alcohol abuse comes because of abdominal pain. Patient recently admitted to the [facility] from january 27 to for abdominal pain and 'found to have elevated LFTs with AST at 456, ALT 208, alkaline phos 731 and total bilirubin 7.5 and direct bili 5.[address] scan showed extensive diffuse fatty infiltration which seemed new ,no biliary ductal dilatation seen . Suspicious for alcohol hepatitis but DF score was 7.5 so no prednisone was given. GI recommended to res tart Ursodiol 300milligrams twice daily and to follow-up with hepatology clinic and strict alcohol cessation.Patient declined inpatient alcohol rehab patient was started on naltrexone 50 mg p.o. daily and advised to follow-up with addiction medicine and was discharged home'. Patient states after going home still has a lot of abdominal pain. She went to the follow-up appointment to PCP today and because of ongoing abdominal pain was advised to come to the ER again today. Patient states has some loose stools. Denies any blood in the stools. Micturating a lot. Denies any fevers. States she is always short of breath. She still smokes half pack a day. And has cough with yellowish phlegm. She thinks she has a bronchitis and some chest discomfort from that. Has nausea. Appetite is down. No headache. Vision is blurry. Has some sore throat. Currently hemodynamics are okay. Patient states she has not drank alcohol since she was admitted in [facility] on January 27. She states she can stop alcohol for few days without going through withdrawals. 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 Carpal tunnel surgery bilateral. Colonoscopy. EGD. EGD with endoscopic ultrasound. EGD with biopsy. Laparoscopic procedure liver. Laparoscopic gastric restrictive bypass Jeet-en-Y. Cholecystectomy. Postop hernia repair with mesh. Tonsillectomy And arytenoidectomy.. Laparoscopic sleeve gastrectomy. Social history. Smokes 1 pack a day for 20 years. Alcohol 6 pack a day. Drugs medical marijuana. States she used cocaine only once during period of suicidal ideation. Family history. Mother had cancer. ADHD. Mental illness. Fibromyalgia. Father has diabetes. Esophageal cancer. Hypertension. Stomach cancer. Sister has asthma. Maternal grandfather had stomach cancer. Maternal grandmother had breast cancer. Sister has melanoma. Paternal grandmother had stomach cancer. Uncle had esophageal cancer. Admission Exam Per Admitting Provider General- Not in distress Head- atraumatic Eyes- PERRL.Icterus present ENT- oropharynx clear Neck- supple, no JVD. Lungs- clear to auscultation mild b/l rhonchi heard, or crackles. Heart- regular rate and rhythm; no murmur, no gallop. Abdomen- normal bowel sounds, soft, diffuse tender mild guarding present. No distension. Extremities- no pretibial edema, no erythema seen. Neuro- alert, oriented PERRL, EOMI; no facial palsy; no dysarthria; moves extremities. Discharge Exam General: Alert, oriented. No acute distress Skin: No noted rashes or bruises Psych: Appropriate mood and affect Neuro: No gross deficits HEENT: NC/AT Chest: Nontender to palpation. CV: RRR Resp: Breath sounds clear bilaterally, no increased effort of breathing Abdomen:Soft, diffusely tender Extremities: No edema in lower extremities bilaterally. Updated Medication List Medication Instructions Recorded Confirmed Type albuterol sulfate 90 mcg/actuation 2 puff inhalation Q4H PRN 02/04/24 02/04/24 History aerosol inhaler Shortness Of Breath Or Wheezing bupropion HCl 75 mg tablet 75 mg PO DAILY 02/04/24 02/04/24 History clonazepam 1 mg tablet 1 mg PO BID PRN PANIC ATTACKS 02/04/24 02/04/24 History fluticasone fur. 100 mcg-umeclid 1 inh inhalation DAILY 02/04/24 02/04/24 History 62.5 mcg-vilant 25 mcg inhalat.powder (Trelegy Ellipta) folic acid 1 mg tablet 1 mg PO DAILY 02/04/24 02/04/24 History multivitamin with folic acid 400 1 tab PO QDL 02/04/24 02/04/24 History mcg tablet (Daily-Donaldo (with folic acid)) naltrexone 50 mg tablet 50 mg PO QAM 02/04/24 02/04/24 History propranolol 10 mg tablet 10 mg PO BID PRN Anxiety 02/04/24 02/04/24 History thiamine HCl (vitamin B1) 100 mg 100 mg PO DAILY 02/04/24 02/04/24 History tablet (Vitamin B-1) trazodone 100 mg tablet 200 mg PO HS PRN SLEEDP 02/04/24 02/04/24 History ursodiol 300 mg capsule See Rx Instructions .Route .COMPLEX 02/04/24 02/04/24 History ziprasidone HCl 80 mg capsule 80 mg PO DAILY 02/04/24 02/04/24 History dicyclomine 10 mg capsule 10 mg PO TID #30 caps 02/07/24 Rx docusate sodium 100 mg tablet 100 mg PO BID #60 tabs 02/07/24 Rx doxycycline hyclate 100 mg capsule 100 mg PO BID #15 caps 02/07/24 Rx nitrofurantoin macrocrystal 100 mg 100 mg PO BID 5 days #10 caps 02/07/24 Rx capsule oxycodone 5 mg tablet 5 mg PO TID PRN pain, severe #9 02/07/24 Rx tabs pantoprazole 40 mg tablet,delayed 40 mg PO BID #60 tabs 02/07/24 Rx release sucralfate 100 mg/mL oral 1 g (10 mL) PO QID #300 mL 02/07/24 Rx suspension Hospital Stay Data Consultations 02/04/24 21:23 ED Decision to Admit Stat 02/05/24 08:00 Consult Gastroenterology Routine Consult General Surgery Routine Diagnostic Imagining Performed 02/04/24 19:46 CT abd pelvis IV con only Stat Abdomen/Pelvis CT 02/04/24 19:46 CT abd pelvis IV con only CLINICAL HISTORY: pain, liver issues, concern for hemorrhage TECHNIQUE: Helical axial images of the abdomen and pelvis were obtained and dis played. Automated dose lowering techniques and/or adjustment according to patient size were utilized for this exam. This exam was performed with intravenous contrast. CT DOSE: 357.06 mGy.cm COMPARISON: None available at the time of this dictation. FINDINGS: Lower chest: No acute abnormality. Liver: Hepatomegaly and hepatic steatosis is seen. Gallbladder and biliary tree: Patient is status post cholecystectomy. No intra- or extrahepatic biliary ductal dilation. Pancreas: Unremarkable, no focal lesions. Spleen: Unremarkable. Adrenals: Unremarkable. Kidneys and ureters: Unremarkable. Bladder: Limited evaluation due to underdistention. Reproductive organs: Unremarkable. Bowel: Postsurgical changes of gastric sleeve are noted. A hiatal hernia is seen. Diverticulosis is seen without diverticulitis. Lymph nodes Retroperitoneal: Unremarkable. Pelvic: Unremarkable. Mesenteric: Unremarkable. Peritoneum: Normal. Vessels: Unremarkable. Abdominal wall: Unremarkable. Bones: Unremarkable. IMPRESSION: 1. Prominent hepatic steatosis and hepatomegaly are seen. Steatohepatitis cannot be excluded. 2. No evidence of intraperitoneal hemorrhage or other acute abnormality. 3. Postsurgical changes of gastric sleeve. ACT 112: Negative or not required by law. Electronically signed by: Kayode Rosa M.D. 02/04/2024 9:07 PM Discharge Instructions Given to Patient (Per Discharging Provider) Ginger, You stated that you are now able to tolerate food. For your abdominal pain, we are discharging you home with the daily medication Bentyl/dicyclomine and a few doses of NEEDED oxycodone for severe pain. Please only use the oxycodone for SEVERE pain. Please do not use the oxycodone in combination with your home Klonipin OR ALCOHOL. PLEASE AVOID ALCOHOL while on this medication as it can have deadly effects. PLEASE HOLD YOUR HOME NALTREXONE (you previously stated that you were not taking it) WHILE USING THE OXYCODONE. Please take the prescribed stool softener to help with bowel movements. Please keep followup with your primary provider for any further treatments or med ication refills. Gastroenterology also recommended the prescribed carafate and pantoprazole for daily use. Please discontinue alcohol use. Your liver enzymes have improved significantly. Please keep close follow up with your filling layer up/GI after discharge. We are discharging you home with oral Macrobid for 5 more days of continued treatment of your urinary tract infection. For the bronchitis, please take the antibiotic doxycycline for 7 and a half more days. Please keep close follow up with your primary care provider after discharge as well as gastroenterology. Please do not hesitate to come back to the emergency room if your symptoms worsen or return. It was a pleasure taking care of you while you were here. Total Time Total Time Spent Total Time Spent (In Minutes): 75
== END 2024-02-07 13:13 | disposition home or self-care (01) | DRG 690 ==
LOC: ED 18:00 → EDINP 23:04 → 2N 02-05 17:26